=== PATIENT | male | born 1955 | race Caucasian/White ===

== ENCOUNTER 2019-05-31 08:48 | Outpatient (CLI) | payer MEDICARE, SELFPAY ==
[2019-05-31 09:00] LABS: Hemoglobin 15.3 g/dL (14.0-18.0); Mean Corpuscular HGB Conc 33.3 g/dL (32.0-36.0); Mean Corpuscular Hemoglobin 27.8 pg (27.0-31.0); Mean Corpuscular Volume 83.5 fL (78.0-102.0); Mean Platelet Volume 10.2 fl (8.7-11.0); Platelet Count Result 198 K/mm3 (150-420); Red Blood Count 5.51 M/mm3 (4.70-6.10); Red Cell Distribution Width 14.5 % (11.6-14.4); White Blood Count 7.8 K/mm3 (4.8-10.8)
[2019-05-31 09:12] LABS: Hemoglobin A1C 6.2 % (<5.7)
[2019-05-31 10:51] LABS: Alanine Aminotransferase 63 U/L (16-63); Albumin Level 4.2 g/dL (3.4-5.0); Alkaline Phosphatase 53 U/L (46-116); Anion Gap 13.7 mmol/L (7-16); Aspartate Amino Transferase 36 U/L (15-37); Bilirubin,Total 0.5 mg/dL (0.00-1.00); Blood Urea Nitrogen 20 mg/dL (7-18); Calcium 8.9 mg/dL (8.5-10.1); Carbon Dioxide 30 mmol/L (21-32); Chloride 104 mmol/L (98-108); Cholesterol 163 mg/dL (0-200); Estimated Glomerular Filt Rate 47; Glucose 96 mg/dL (70-99); HDL Direct 30 mg/dL (40-60); LDL Cholesterol Calculated 101 mg/dL (<130); Osmolality Calculated 300 mOsm/kg (285-295); Potassium 3.7 mmol/L (3.5-5.1); Sodium 144 mmol/L (136-145); Total Protein 7.8 g/dL (6.4-8.2); Triglycerides 158 mg/dL (0-150)
[2019-05-31 10:52] LABS: Thyroid Stimulating Hormone Reflex 1.17 u/IU/mL (0.36-3.74)
== END 2019-05-31 08:49 | disposition home or self-care (01) ==
LOC: CHSLAB 08:52
PROVIDERS: PCP Family Medicine; Visit Provider Family Medicine
DX: E78.5 Hyperlipidemia, unspecified (principal); R53.83 Other fatigue; I25.10 Atherosclerotic heart disease of native coronary artery without angina pectoris; Z12.5 Encounter for screening for malignant neoplasm of prostate; E11.9 Type 2 diabetes mellitus without complications
CPT/HCPCS: 36415; 80053; 80061; 83036; 84153; 84443; 85027; G0103

== ENCOUNTER 2020-02-12 08:43 | Outpatient (CLI) | payer MEDICARE, MEDICAID, SELFPAY ==
--- NOTE | ~2020-02-12 | XR_ITS ---
EXAMINATION: XR hip RT min 2V EXAM DATE: 02/12/2020 09:04 INDICATION: Right hip pain, no known recent injury. TECHNIQUE: Right hip frontal, crosstable lateral and 'frog-leg' projections for interpretation. Huey rison is made to prior examination from 02/21/2012. FINDINGS: Smooth right hip femoral head contour, no radiographic evidence of avascular necrosis. The re is mild to moderate primary osteoarthritis. There are no acute fractures or dislocations identifie d. There is no subcutaneous gas. The soft tissue is unremarkable. There are no radiopaque foreign bodies. IMPRESSION: Mild to moderate right hip osteoarthritis. Reviewed, dictated and finalized at location B. SMOKING MACHINE OPERATOR
== END 2020-02-12 08:44 | disposition home or self-care (01) ==
PROVIDERS: PCP Family Medicine; Visit Provider Physical Medicine & Rehabilitation Pain Medicine
DX: M16.11 Unilateral primary osteoarthritis, right hip (principal)
CPT/HCPCS: 73502

== ENCOUNTER 2020-02-28 10:34 | Outpatient (CLI) | payer MEDICARE, MEDICAID, SELFPAY ==
--- NOTE | ~2020-02-28 | US_ITS ---
EXAMINATION: US soft tissue head and neck EXAM DATE: 02/28/2020 11:03 INDICATION: R22.1 - Localized swelling, mass and lump, neck . TECHNIQUE: Multiple grayscale and Doppler images of the symptomatic suprasternal region were obtained (by a technologist who performed the scan) and subsequently reviewed. There is no prior study for c omparison. FINDINGS: Images annotated mid inferior neck sternal notch area demonstrate a focal region left of midline bindu g the fascial planes, solid but without internal vascularity confirmed. This measures about 2.5 x 1.0 cm, differential diagnosis including lipoma, lymphadenopathy. Recommend CT neck for further evaluati on. No fluid collection. IMPRESSION: Focal mass in left medial supraclavicular region, probably encapsulated lipoma or lymphad enopathy. Recommend CT neck with or without contrast for further evaluation. Reviewed, dictated and finalized at location A. CT MARKETING SPECIALIST IMPRESSION: Focal mass in left medial supraclavicular region, probably encapsul ated lipoma or lymphadenopathy. Recommend CT neck with or without contrast for further evaluation.
== END 2020-02-28 10:35 | disposition home or self-care (01) ==
PROVIDERS: PCP Family Medicine; Visit Provider Physician Assistant
DX: R22.1 Localized swelling, mass and lump, neck (principal)
CPT/HCPCS: 76536

== ENCOUNTER 2020-03-02 08:17 | Outpatient (CLI) | payer MEDICARE, MEDICAID, SELFPAY ==
--- NOTE | ~2020-03-02 | XR_ITS ---
MODIFIED ESOPHAGRAM HISTORY: Dysphagia TECHNIQUE: Modified barium esophagram was performed by speech pathologist under radiologist fluorosco pic guidance. This was recorded on tape. The exam was reviewed on 03/02/2020 10:13 TILE MOLDER HAND. The DAP fo r this procedure was 2.2 Gycm2. Fluoroscopy time is 2 minutes. FINDINGS: Lateral projection of the cervical spine demonstrates normal alignment. There surgical ch anges of fusion.. There are multiple episodes of trace penetration which clears without evidence for aspiration throughout multiple consistencies.. IMPRESSION: 1: Trace penetration with multiple consistencies without aspiration. 2: Please refer to speech pathologist report for additional detail. Reviewed, dictated and finalized at location A. MOLDER HAND
--- NOTE | 2020-03-02 15:23 | STOPEVAL ---
MODIFIED BARIUM SWALLOW EVALUATION: Thank you for referring Gautam Winston to [facility].? Attending Provider: MD ELIUD Yusuf Outpatient Evaluation/MBS Start: 03/02/20 15:09 Freq: Status: Active Protocol: Document 03/02/20 08:30 BECHERERT (Rec: 03/02/20 15:23 BECHERERT [email or web address]) Therapy Assessment Status Assessment Status Assessment Status Evaluation Outpatient Past Medical History Neurological History Hx Neurological Disorders No Significant History Cardiovascular History Hx Chest Pain Yes Hx Hypertension Yes Respiratory History Hx Sleep Apnea Yes Gastrointestinal History Hx Esophageal Disorders Yes: Nuñez's esophagus Hx Polyps Yes Genitourinary History Hx Genitourinary Disorders No Significant History Musculoskeletal History Hx Arthritis Yes Hx Spinal Surgery Yes: cervical, lumbar Hematological History Hx Hematological Disorders No Significant History Endocrine History Hx Endocrine Disorders No Significant History HEENT History Hx HEENT Disorders No Significant History Integumentary History Hx Skin Disorders No Significant History Reproductive History Hx Reproductive Disorders No Significant History Psychosocial History Hx Psychiatric Disorders No Significant History Pain History Has Past Pain Affected Your Daily Life Yes: back Anesthesia History Hx Post-Op Nausea/Vomiting Yes Other History Hx Implanted Device Yes: Metal in cervical and lumbar spine Evaluation Information Problem Diagnosis dysphagia Onset 6 months to years ago Pain Assessment Timing of Pain Assessment Timing of Pain Assessment Assessment Self Report Self Report Pain Level 0 Pain Score Pain Score 0: Self Report Modified Barium Swallow Evaluation Recent Swallowing History Reports Dysphagia Yes: I choke all the time, every day on really anything Onset of Dysphagia 6 months ago then stated for years History of Dysphagia Yes Other Factors Impacting Dysphagia Head/Neck Surgery Reported Difficult Consistencies Thin Liquids,Solids Intake Method Prior to Swallow Oral Evaluation Diet Prior to Swallow Evaluation Regular, Level 7 Liquid Consistency Prior to Swallow Thin (0) Evaluation Consistency Thin Uncontrolled 2 Method of Presentation Straw Oral Preparatory Symptoms Within Functional Limits Oral Phase Symptoms Within Functional Limits Pharyngeal Phase Symptoms Laryngeal Penetration Severity of Vallecular Residue None - 0% No Residue Severity of Pyriform Sinus Residue None - 0%
== END 2020-03-02 08:18 | disposition home or self-care (01) ==
PROVIDERS: PCP Family Medicine; Visit Provider Internal Medicine Gastroenterology
DX: R13.10 Dysphagia, unspecified (principal)
CPT/HCPCS: 92611

== ENCOUNTER 2020-03-04 09:11 | Outpatient (CLI) | payer MEDICARE, MEDICAID, SELFPAY ==
--- NOTE | ~2020-03-04 | CT_ITS ---
EXAMINATION: CT soft tissue neck w con DATE: 03/04/2020 09:45 INDICATION: Neck mass. TECHNIQUE: Computed tomography (CT) of the neck was performed with 75 mL Omnipaque-350 intravenous co ntrast. Automated exposure control and iterative reconstruction technique were employed. The dose-calli gth product was 510.71 mGy-cm. COMPARISON: Ultrasound 02/28/2020 FINDINGS: There are no pathologically enlarged lymph nodes. There is plaque in the proximal internal carotid arteries with 0% stenosis relative to normal distal artery lumen diameters. There is a lipoma superficial to medial left clavicle measuring 4.1 x 1.1 cm. There are changes of anterior fusion pro cedure from C3 to C7 with healed interbody bone graft. There is an anterior plate with screws from C3 to C5. There is moderate cervical spondylosis. IMPRESSION: 1. Lipoma superficial to medial left clavicle correlating with the ultrasound abnormality. Reviewed, dictated and finalized at location A. AR DRIVER IMPRESSION: 1. Lipoma superficial to medial left clavicle correlating with the ultrasound a bnormality.
[2020-03-04 09:40] LABS: Estimated Glomerular Filt Rate 47
== END 2020-03-04 09:12 | disposition home or self-care (01) ==
PROVIDERS: PCP Family Medicine; Visit Provider Family Medicine
DX: R22.1 Localized swelling, mass and lump, neck (principal)
CPT/HCPCS: 70491; Q9967

== ENCOUNTER 2020-03-07 00:59 | Outpatient (CLI) | payer MEDICARE, MEDICAID, SELFPAY ==
[2020-03-07 18:31] LABS: SARS-CoV-2 RNA PCR Negative
== END 2020-03-07 01:00 | disposition home or self-care (01) ==
LOC: ANHCOVIDDT 00:59
PROVIDERS: PCP Family Medicine; Visit Provider Internal Medicine Gastroenterology
DX: Z01.812 Encounter for preprocedural laboratory examination (principal); Z20.828 Contact with and (suspected) exposure to other viral communicable diseases
CPT/HCPCS: 87635; C9803; U0003

== ENCOUNTER 2020-03-11 02:11 | Day surgery (SDC) | payer MEDICARE, MEDICAID, SELFPAY ==
[2020-03-02 12:44] VITALS: BMI 37.3
[2020-03-11 07:30] VITALS: BP 138/81; PULSE 66; RESP 18; TEMP 36.7; O2SAT 96; BMI 37.5
[2020-03-11] MEDS: LACTATED RINGERS 1,000 ML 150 ML IV CONT (07:43)
--- NOTE | 2020-03-11 08:01 | WPDGICN ---
Assessment and Plan Assessment and plan (1) Dysphagia: Code(s): R13.10 - Dysphagia, unspecified Status: Acute Assessment and Plan: Patient complains of difficulty swallowing. Some features suggest oropharyngeal dysphagia. Perhaps a motility disorder. 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 Plan is for EGD to assess for organic narrowing of the esophagus. Modified barium swallow study will also be arranged. GI Consult Note Consult date/time: 03/11/20 08:01 HPI: Gautam Winston is a 65 year old male Seen in evaluation at the request of Dr. Jenny odom. Patient complains of difficulty swallowing. He states that food will stay in his throat. He will frequently cough after eating. He complains of nasopharyngeal regurgitation sometimes expelling food through his nostrils. He denies any abdominal pain. Previous endoscopies have excluded Nueñz's esophagus. He does have a distant history of an esophageal web at 1 point. Patient reports an ongoing discomfort in his throat that is constantly present. Today he presents for follow-up EGD. a modified barium swallow study will also be performed. 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 Cervical radiculopathy Chronic midline low back pain Chronic renal insufficiency Current mild episode of major depressive disorder without prior episode Diabetes Erectile dysfunction Essential hypertension Obstructive sleep apnea Stress reaction Family History Family History Father Family history of premature coronary heart disease, Onset Age: 58 Hypertension Carcinoma of colon Family history of Alzheimer's disease Mother Diabetes mellitus Family history of chronic obstructive pulmonary disease Hypertension Other Cerebrovascular accident Family history of cardiovascular disease Family history of malignant neoplasm Social History Social History Smoking status: Never smoker Second hand tobacco smoke exposure: No Alcohol intake: never Substance use type: does not use Living arrangements: with family Gender identity (if verbalized by the patient): Male Spiritual care concerns: No Meds Home Medications and Allergies Home Medications Medication Instructions Recorded Confirmed Type aspirin 81 mg tablet,delayed 81 mg PO DAILY 05/19/19 03/11/20 History release nitroglycerin 0.4 mg sublingual 0.4 mg SUBLINGUAL Q5M PRN 05/19/19 03/11/20 History tablet oxycodone-acetaminophen 5 mg-325 1 tablet PO Q6H PRN #30 tablet 05/22/19 03/11/20 Rx mg tablet omeprazole 10 mg capsule,delayed 10 mg PO DAILY #90 cap 10/31/19 03/11/20 Rx release chlorthalidone 50 mg tablet 50 mg PO DAILY #90 tablet 01/20/20 03/11/20 Rx sildenafil 100 mg tablet 100 mg PO DAILY PRN #10 tablet 01/23/20 03/11/20 Rx Allergies Allergy/AdvReac Type Severity Reaction Status Date / Time No Known Allergies Allergy Verified 03/11/20 07:29 Vital Signs Vital Signs - 24 hr 03/11/20 07:30 Temperature 98.0 F Pulse Rate 66 Respiratory Rate 18 Blood Pressure 138/81 Pulse Oximetry 96 Exam Narrative: Exam Narrative: Physical exam reveals patient to be overweight. Vital signs are stable. HEENT exam unremarkable. Lungs are clear to auscultation and percussion. Heart is without murmur or extra sounds. Abdominal exam bowel sounds are present soft nontender with no organomegaly is somewhat obese. digital external rectal exam is normal.
--- NOTE | 2020-03-11 08:31 | P.PNAN_ITS ---
Anes - Initial Pre Proc Eval Procedure: Operation Date: 03/11/20 09:00 Proposed Procedures p Esophagogastroduodenoscopy - Darell Rodriguez MD Date/Time: 03/11/20 08:31 Surgeon: Darell Rodriguez MD Pre Op Diagnosis: Dysphagia,GERD Patient Data Age: 65 Gender: M Height: 6 ft Weight: 125.4 kg Last Vital Signs Temp 98.0 F 03/11/20 07:30 Pulse 66 03/11/20 07:30 Resp 18 03/11/20 07:30 BP 138/81 03/11/20 07:30 Pulse Ox 96 03/11/20 07:30 Allergies Allergy/AdvReac Type Severity Reaction Status Date / Time No Known Allergies Allergy Verified 03/11/20 07:29 Home Medications Medication Instructions Recorded Confirmed Type aspirin 81 mg tablet,delayed 81 mg PO DAILY 05/19/19 03/11/20 History release nitroglycerin 0.4 mg sublingual 0.4 mg SUBLINGUAL Q5M PRN 05/19/19 03/11/20 History tablet oxycodone-acetaminophen 5 mg-325 1 tablet PO Q6H PRN #30 tablet 05/22/19 03/11/20 Rx mg tablet omeprazole 10 mg capsule,delayed 10 mg PO DAILY #90 cap 10/31/19 03/11/20 Rx release chlorthalidone 50 mg tablet 50 mg PO DAILY #90 tablet 01/20/20 03/11/20 Rx sildenafil 100 mg tablet 100 mg PO DAILY PRN #10 tablet 01/23/20 03/11/20 Rx Patient hx anesthesia problems: none Family hx anesthesia problems: none PMFSH Past Medical History Medical History 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 Cervical radiculopathy Chronic midline low back pain Chronic renal insufficiency Current mild episode of major depressive disorder without prior episode Diabetes Erectile dysfunction Essential hypertension Obstructive sleep apnea Stress reaction Family History Family History Father Family history of premature coronary heart disease, Onset Age: 58 Hypertension Carcinoma of colon Family history of Alzheimer's disease Mother Diabetes mellitus Family history of chronic obstructive pulmonary disease Hypertension Other Cerebrovascular accident Family history of cardiovascular disease Family history of malignant neoplasm Social History Social History Smoking status: Never smoker Second hand tobacco smoke exposure: No Alcohol intake: never Substance use type: does not use Living arrangements: with family Gender identity (if verbalized by the patient): Male Spiritual care concerns: No Anes - Eval Final PreProcedure Day of Procedure 03/11/20 08:31 Patient weight: obese Heart: regular rate and rhythm Lungs: clear to auscultation Airway: Mallampati scale class II Neurological: alert and oriented Last oral intake: >/= 8 hours ASA classification: III Emergent: no Anesthetic plan: proceed Anesthesia type and monitoring: general GIVS and standard monitoring Informed Consent: The patient's anesthetic plan and its attendant risks and benefits were discussed with the patient/family/POA. Questions were solicited and answers provided to the satisfaction of the patient/family/POA.
[2020-03-11] MEDS: BENZOCAINE (*SP) 60 ML SPRAY CAN (HURRICAINE) 1 SPRAY MUCOUS MEM (08:33)
[2020-03-11 08:44] VITALS: BP 127/77; PULSE 64; RESP 17; O2SAT 97
[2020-03-11 08:54] VITALS: BP 122/80; PULSE 52; RESP 14; O2SAT 97
[2020-03-11 09:04] VITALS: BP 128/69; PULSE 54; RESP 19; O2SAT 99
== END 2020-03-11 09:14 | disposition home or self-care (01) ==
PROVIDERS: PCP Family Medicine; Visit Provider Internal Medicine Gastroenterology
PROC: 0DJ08ZZ Inspection of Upper Intestinal Tract, Via Natural or Artificial Opening Endoscopic (ICD-10-PCS; CPT 43235; principal; 2020-03-11 09:00)
DX: R13.10 Dysphagia, unspecified (principal); I25.10 Atherosclerotic heart disease of native coronary artery without angina pectoris; I12.9 Hypertensive chronic kidney disease with stage 1 through stage 4 chronic kidney disease, or unspecified chronic kidney disease; N18.9 Chronic kidney disease, unspecified; E11.22 Type 2 diabetes mellitus with diabetic chronic kidney disease; G47.33 Obstructive sleep apnea (adult) (pediatric); N52.9 Male erectile dysfunction, unspecified; F32.0 Major depressive disorder, single episode, mild; Z79.891 Long term (current) use of opiate analgesic; E66.9 Obesity, unspecified; Z68.37 Body mass index [BMI] 37.0-37.9, adult
CPT/HCPCS: 43450; 43235; J2704; J7120

== ENCOUNTER 2020-04-22 08:40 | Outpatient (RCR) | payer MEDICARE, MEDICAID, SELFPAY ==
--- NOTE | 2020-04-23 14:19 | STOPEVAL ---
SPEECH THERAPY INITIAL EVALUATION: Thank you for referring Gautam Winston to [facility].? The patient is scheduled to be seen for therapy?1x/week for 4 weeks. Please review, sign, date and return this plan of care YAMIL. I agree with and certify that the following plan of care is medically necessary. Referring Physician Date Attending Provider: Jenny Reyes MD *ST Outpatient Evaluation Start: 04/22/20 09:04 Freq: Status: Active Protocol: Document 04/22/20 09:00 BECHERERT (Rec: 04/22/20 16:52 BECHERERT [email or web address]) Therapy Assessment Status Assessment Status Assessment Status Evaluation Outpatient Past Medical History Past Medical History Source of Past Medical History Patient Neurological History Hx Neurological Disorders No Significant History Cardiovascular History Hx Chest Pain Yes Hx Hypertension Yes Respiratory History Hx Sleep Apnea Yes Gastrointestinal History Hx Polyps Yes Genitourinary History Hx Genitourinary Disorders No Significant History Musculoskeletal History Hx Arthritis Yes Hx Spinal Surgery Yes: cervical, lumbar Hematological History Hx Hematological Disorders No Significant History Endocrine History Hx Endocrine Disorders No Significant History HEENT History Hx HEENT Disorders No Significant History Integumentary History Hx Skin Disorders No Significant History Reproductive History Hx Reproductive Disorders No Significant History Psychosocial History Hx Psychiatric Disorders No Significant History Pain History Has Past Pain Affected Your Daily Life Yes: back Anesthesia History Hx Post-Op Nausea/Vomiting Yes Other History Hx Implanted Device Yes: Metal in cervical and lumbar spine Evaluation Information Problem Diagnosis DYSPHAGIA Subjective Information pleasant and very cooperative; Query Text:As Reported By Patient/ Family Diagnostic Tests Other Tests For This Problem Yes: CT and US of neck/throat Prior Level of Function Home Setting Home Type House Prior Swallow Level Prior Intake Method Oral Prior Diet Regular (Level 7 Diet) Prior Liquid Consistency Thin (Level 0 Diet) Prior Cognition/Communication Prior Communication Level No Impairment Prior Cognitive Function Able to Function Independently Pain Assessment Timing of Pain Assessment Timing of Pain Assessment Assessment Self Report Self Report Pain Level 0 Pain Score Pain Score 0: Self Report Bedside Swallow Evaluation General Reports Dysphagia Yes: I choke 3-4 times a day Onset of Dysphagia
--- NOTE | 2020-05-20 08:53 | PCSTNOTE ---
SPEECH THERAPY DISCHARGE: Attending Provider: Jenny Reyes MD Patient:Gautam Winston Date of :1955 Patient has not returned for any further treatments since 04/22/2020, therefore he will be discharged at this time. Patient?s initial visit was on 04/22/2020 09:00 which was his only visit. In that visit the pt was given a HEP with which he verbalized and demonstrated understanding. Thank you for referring this patient to [facility]. Please review, sign, date and return this discharge summary YAMIL. I have been updated about the patient's current status and I agree with discharge from the above service at this time. Referring Physician Date
== END 2020-05-20 11:14 | disposition home or self-care (01) ==
LOC: ANHST 08:40
PROVIDERS: PCP Family Medicine; Visit Provider Family Medicine
DX: R13.12 Dysphagia, oropharyngeal phase (principal)
CPT/HCPCS: 92610

== ENCOUNTER 2021-01-07 10:36 | Emergency (ER) | payer MEDICARE, MEDICAID, SELFPAY ==
--- NOTE | ~2021-01-07 | XR_ITS ---
EXAMINATION: XR chest 1V portable EXAM DATE: 01/07/2021 11:52 INDICATION: Midsternal chest pain. TECHNIQUE: Portable AP frontal chest x-ray was obtained. Comparison is made to prior examination from 05/24/2018. FINDINGS: The lungs are clear. There are no pleural effusions. Cardiomediastinal silhouette is norm al. There is no pneumothorax suspected. Cervical fusion hardware. There is no significant interval change. IMPRESSION: No acute cardiopulmonary findings. Reviewed, dictated and finalized at location A.
--- NOTE | 2021-01-07 10:58 | ECG_ITS ---
Measurements Intervals [place] Rate: 91 P: 64 OR: 174 QRS: 268 QRSD: 148 T: 63 QT: 405 QTc: 499 Interpretive Statements SINUS RHYTHM RIGHT AXIS DEVIATION RIGHT BUNDLE BRANCH BLOCK ABNORMAL ECG Electronically Signed On 01-07-2021 11:18:34 CDT by Tom Workman D.O.
[2021-01-07 11:07] VITALS: BP 136/85; PULSE 93; RESP 16; TEMP 37.3; O2SAT 100
[2021-01-07 11:11] LABS: Basophils Absolute Auto 0.04 K/mm3 (0.00-0.10); Basophils Percent Auto 0.3 % (0.0-1.0); Eosinophils Absolute Auto 0.05 K/mm3 (0.02-0.50); Eosinophils Percent Auto 0.3 % (1.0-6.0); Hematocrit 44.1 % (40.0-54.0); Hemoglobin 14.9 g/dL (14.0-18.0); Immature Granulocyte Absolute 0.08 K/mm3 (0.00-0.00); Immature Granulocyte Percent A 0.6 % (0.0-0.0); Lymphocytes Absolute Auto 1.64 K/mm3 (1.10-4.50); Lymphocytes Percent Auto 11.3 % (18.0-42.0); Mean Corpuscular HGB Conc 33.8 g/dL (32.0-36.0); Mean Corpuscular Volume 82.9 fL (78.0-102.0); Mean Platelet Volume 9.5 fl (8.7-11.0); Monocytes Percent Auto 6.9 % (2.0-11.0); Neutrophils Absolute Auto 11.7 K/mm3 (1.7-7.2); Neutrophils Percent Auto 80.6 % (50.0-70.0); Platelet Count Result 232 K/mm3 (150-420); Red Blood Count 5.32 M/mm3 (4.70-6.10); Red Cell Distribution Width 14.5 % (11.6-14.4); White Blood Count 14.5 K/mm3 (4.8-10.8)
[2021-01-07] MEDS: ASPIRIN 81 MG CHEWABLE TABLET 324 MG PO (11:20)
[2021-01-07] MEDS: NITROGLYCERIN SL 0.4 MG TABLET SUBLINGUAL (11:24)
[2021-01-07 11:28] LABS: D Dimer 0.29 mg/L (0.19-0.50); Partial Thromboplastin Time 30.8 SEC (23.90-30.70); Prothrombin Time 10.9 Seconds (9.50-12.10)
[2021-01-07 11:32] LABS: Alanine Aminotransferase 41 U/L (16-63); Albumin Level 3.9 g/dL (3.4-5.0); Alkaline Phosphatase 71 U/L (46-116); Anion Gap 10 mmol/L (8-16); Aspartate Amino Transferase 21 U/L (15-37); Bilirubin,Total 0.6 mg/dL (0.00-1.00); Blood Urea Nitrogen 22 mg/dL (7-18); Carbon Dioxide 29 mmol/L (21-32); Chloride 100 mmol/L (98-108); Estimated CRCL calculation 62 ml/min; Estimated Glomerular Filt Rate 52; Glucose 95 mg/dL (70-99); Lipase 112 U/L (73-393); NT Pro B Type Natriuretic Pept 16 pg/mL (0-125); Osmolality Calculated 291 mOsm/kg (285-295); Potassium 2.6 mmol/L (3.5-5.1); Sodium 139 mmol/L (136-145); Total Protein 7.6 g/dL (6.4-8.2); Troponin I 8.2 ng/L (0.00-60.4)
[2021-01-07] MEDS: KCL 20 MEQ/SW 100 ML 100 ML 50 MEQ IVPB (11:53)
[2021-01-07] MEDS: SODIUM CHLORIDE 0.9% IV 1,000 ML 999 ML IV CONT (11:54)
[2021-01-07] MEDS: POTASSIUM CHLORIDE 20 MEQ TABLET 40 MEQ PO (12:28)
[2021-01-07] MEDS: SODIUM CHLORIDE 0.9% IV 500 ML 250 ML (13:16)
[2021-01-07 13:58] VITALS: BP 112/77; PULSE 94; RESP 17; O2SAT 93
[2021-01-07 14:36] LABS: Potassium 3.1 mmol/L (3.5-5.1)
--- NOTE | 2021-01-07 14:57 | ED.CHESTPAIN ---
HPI - Chest Pain General Chief Complaint: Chest Pain Stated Complaint: chest pain Source: patient Mode of arrival: ambulatory Limitations: no limitations History of Present Illness HPI narrative: this is a 66-year-old gentleman presents with some chest discomfort reproducible with some cervical neck arthritis with some numbness and tingling radiating down his left arm with no shortness of breath no nausea vomiting no diaphoresis does have a family history of heart disease had a negative stress test performed in 2018, patient has a history of hyperlipidemia hypertension, nonsmoker no personal history of coronary artery disease. MD complaint: chest pain Onset (ago): week(s) Prior episodes: Yes Onset: during rest Related Data Home Medications Medication Instructions Recorded Confirmed aspirin 81 mg tablet,delayed 81 mg PO DAILY 05/19/19 01/07/21 release hnoucrsz-zal-zfadk acid 300 1 tablet PO DAILY 06/25/20 01/07/21 mcg-lycopene 600 mcg-lutein 300 mcg tablet omega 8-oyp-eme-fish oil 100 cap PO 06/25/20 11/19/20 mg-160 mg-1,000 mg capsule chlorthalidone 50 mg tablet 25 mg PO DAILY tablet 09/25/20 01/07/21 sennosides-docusate sodium [Senna 1 tab-cap PO HS 01/07/21 01/07/21 with Docusate Sodium] Allergies Allergy/AdvReac Type Severity Reaction Status Date / Time No Known Allergies Allergy Verified 12/03/20 10:28 Review of Systems Review of Systems: All systems reviewed & are unremarkable except as noted in HPI and below PMFSH Past Medical History Medical History 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 Cervical radiculopathy Chronic midline low back pain Chronic renal insufficiency Current mild episode of major depressive disorder without prior episode Diabetes Erectile dysfunction Essential hypertension Gout Obstructive sleep apnea Stress reaction Family History Family History Father Family history of premature coronary heart disease, Onset Age: 58 Hypertension Carcinoma of colon Family history of Alzheimer's disease Mother Diabetes mellitus Family history of chronic obstructive pulmonary disease Hypertension Other Cerebrovascular accident Family history of cardiovascular disease Family history of malignant neoplasm Social History Social History Second hand tobacco smoke exposure: No Alcohol intake: never Substance use type: does not use Gender identity (if verbalized by the patient): Male Spiritual care concerns: No Exam Const: General: cooperative, healthy appearing, comfortable and no acute distress HENMT: Head: normal to inspection Ears: hearing grossly normal bilaterally General nose exam: Normal external nose present Mouth: Yes Normal oral and palatal mucosa present and Yes lip normal Eyes: General: appearance normal, both eyes and all related structures EOM: EOMs intact bilaterally Neck: Neck: normal visual inspection, full ROM, no lymphadenopathy and no meningeal signs Resp: Effort & Inspection: able to speak in complete sentences Auscultation: clear to auscultation bilaterally Cardio: Palpation: normal PMI Rate: regular rate Rhythm: regular rhythm Back/Spine/Pelvis: Back: no CVA tenderness Skin: General skin exam: normal color and no rashes or lesions noted Neuro: General: oriented to person, oriented to place and oriented to time Extrem: General: normal to inspection and full ROM Course Course Emergency Course: Labs EKG and x-rays were reviewed with patient did show that he had low potassium potassium rider was given and oral dose of potassium current potassium level 3.1 patient is on chlorthalidone which is contributing to his hypokalemia advised to continue potassium mabry
[2021-01-07 15:51] VITALS: BP 136/63; PULSE 111; RESP 21; O2SAT 97
== END 2021-01-07 15:53 | disposition home or self-care (01) ==
PROVIDERS: Emergency Provider Emergency Medicine; PCP Family Medicine
DX: R07.89 Other chest pain (principal); E87.6 Hypokalemia; I12.9 Hypertensive chronic kidney disease with stage 1 through stage 4 chronic kidney disease, or unspecified chronic kidney disease; N18.9 Chronic kidney disease, unspecified; E11.22 Type 2 diabetes mellitus with diabetic chronic kidney disease; I25.10 Atherosclerotic heart disease of native coronary artery without angina pectoris; K22.70 Barrett's esophagus without dysplasia; E78.5 Hyperlipidemia, unspecified; M54.12 Radiculopathy, cervical region; M54.5 Low back pain; F32.9 Major depressive disorder, single episode, unspecified; E11.9 Type 2 diabetes mellitus without complications; M10.9 Gout, unspecified; G47.33 Obstructive sleep apnea (adult) (pediatric)
CPT/HCPCS: 36415; 71045; 80053; 83690; 83880; 84132; 84484; 85025; 85380; 85610; 85730; 93005; 96361; 96365; 99283; 99284; A9270; J3480; J7030; J7040

== ENCOUNTER 2021-01-08 09:58 | Observation (INO) | payer MEDICARE, MEDICAID, SELFPAY ==
[2021-01-08] VITALS (12 sets, daily range): BP systolic 96–121; BP diastolic 53–66; PULSE 79–97; RESP 14–27; TEMP 36.5–37.7; O2SAT 97–100; BMI 33.7
--- NOTE | ~2021-01-08 | CT_ITS ---
EXAMINATION: CT abdomen pelvis wo con DATE: 01/08/2021 13:06 INDICATION: Flank pain with fever leukocytosis and dysuria. TECHNIQUE: Computed tomography (CT) of the abdomen and pelvis was performed without intravenous contr ast. Automated exposure control and iterative reconstruction technique were employed. The dose-length product was 985.46 mGy-cm. COMPARISON: 06/20/2017 FINDINGS: Lung bases are clear. Heart size is normal. Atherosclerotic coronary artery calcific location. No per icardial or pleural effusion. Small sliding-type hiatal hernia. Diffuse hepatic steatosis. Gallbladde r, spleen, pancreas and bilateral adrenal glands are normal. There is mild colonic diverticulosis wit h a sigmoid predominance. There is no adjacent inflammatory change to suggest diverticulitis. Kidney s and ureters are normal with no urolithiasis, hydroureteronephrosis or perinephric/ureteral strandin g. Prostatomegaly measuring 6.3 x 5.2 cm. There is mild haziness to the fat along the base of the farida dder, prostate and seminal vesicles raising suspicion for prostatitis and/or cystitis. No free intrap eritoneal gas or fluid. No pathologically enlarged abdominal or pelvic lymphadenopathy. Severe lumbar spondylosis. Combined instrumented anterior and posterior spinal fusion at L3-L4 with interbody bone graft cage and bilateral vertical lex and pedicle screw fixation. Additional posterior spinal fusion with fusion across the bilateral facet joints at L5-S1. IMPRESSION: 1. Inflammatory haziness to the fat at the base of the bladder surrounding prostate and seminal vesic les suspicious for prostatitis and/or cystitis. 2. Normal kidneys and ureters with no urolithiasis or hydronephrosis. 3. Diffuse hepatic steatosis. 4. Mild diverticulosis. 5. Small sliding-type hiatal hernia. Reviewed, dictated and finalized at location A. IMPRESSION: 1. Inflammatory haziness to the fat at the base of the bladder surrounding pros rojas and seminal vesicles suspicious for prostatitis and/or cystitis. 2. Normal kidneys and ureters with no urolithiasis or hydronephrosis. 3. Diffuse hepatic steatosis. 4. Mild diverticulosis. 5. Small sliding-type hiatal hernia.
--- NOTE | 2021-01-08 11:39 | ED.FEVER ---
HPI - Fever General Chief Complaint: Fever Stated Complaint: fever, nausea, incotinence Time Seen by Provider: 01/08/21 11:21 Source: patient Mode of arrival: ambulatory Limitations: no limitations History of Present Illness HPI Narrative: This is a 66 year old male that presents to the ER for fevers noted since yesterday. Associated with pressure with urination and left flank pain. Also reports an episode of nausea and vomiting this morning. Reports he was seen in the ED yesterday and diagnosed with hypokalemia. They did a chest XR which was normal and other labs looked okay. Reports they did not check a urine. Although looking through the chart it looks like yesterday his complaint was chest pain. He is no longer experiencing any chest pain. Reports he was just released from his quarantine for Covid infection two days ago. Denies shortness of breath, sore throat, cough, congestion. Related Data Home Medications Medication Instructions Recorded Confirmed aspirin 81 mg tablet,delayed 81 mg PO DAILY 05/19/19 01/07/21 release lxdwjrtd-lko-sfwpb acid 300 1 tablet PO DAILY 06/25/20 01/07/21 mcg-lycopene 600 mcg-lutein 300 mcg tablet omega 8-fxh-dec-fish oil 100 1 cap PO DAILY 06/25/20 01/08/21 mg-160 mg-1,000 mg capsule chlorthalidone 50 mg tablet 25 mg PO DAILY tablet 09/25/20 01/07/21 sennosides-docusate sodium [Senna 1 tab-cap PO HS 01/07/21 01/07/21 with Docusate Sodium] Allergies Allergy/AdvReac Type Severity Reaction Status Date / Time No Known Allergies Allergy Verified 01/08/21 10:18 Review of Systems Review of Systems: CONSTITUTIONAL: Reports fever ENT: Denies rhinorrhea, congestion, sore throat CARDIOVASCULAR: Denies chest pain, or edema. RESPIRATORY: Denies cough or dyspnea. GASTROINTESTINAL: Reports abdominal pain, nausea, vomiting GENITOURINARY: Reports dysuria. Denies hematuria. 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 Cervical radiculopathy Chronic midline low back pain Chronic renal insufficiency Current mild episode of major depressive disorder without prior episode Diabetes Erectile dysfunction Essential hypertension Gout Obstructive sleep apnea Stress reaction Family History Family History Father Family history of premature coronary heart disease, Onset Age: 58 Hypertension Carcinoma of colon Family history of Alzheimer's disease Mother Diabetes mellitus Family history of chronic obstructive pulmonary disease Hypertension Other Cerebrovascular accident Family history of cardiovascular disease Family history of malignant neoplasm Social History Social History Second hand tobacco smoke exposure: No Alcohol intake: never Substance use type: does not use Gender identity (if verbalized by the patient): Male Spiritual care concerns: No Exam Narrative: GENERAL: Well-appearing, well-nourished, and in no acute distress. HEAD: Normocephalic, atraumatic. EYES: EOMI. ENT: Mucous membranes dry. Oropharynx without tonsillar hypertrophy exudate or other lesions. NECK: Supple. No adenopathy or masses. CHEST: Clear to auscultation. No respiratory distress. No wheezes rales or rhonchi HEART: Regular rate and rhythm. No murmur heard. Normal peripheral pulses. ABDOMEN: Soft, nontender, nondistended, normal active bowel sounds. No CVA tenderness EXTREMITIES: Normal range of motion. No edema. SKIN: Warm, dry, no rash. NEURO: No focal deficits. Alert and oriented x3. PSYCH: Normal mood and affect Course Consultations Consultation #1: Spoke with hospitalist about patient and work-up who accepts a
[2021-01-08] MEDS: SODIUM CHLORIDE 0.9% IV 1,000 ML 999 ML IV CONT ×3 (12:06→15:06)
[2021-01-08 12:23] LABS: Hematocrit 42.2 % (42.0-52.0); Hemoglobin 14.2 g/dL (14.0-18.0); Mean Corpuscular HGB Conc 33.6 g/dl (32-36); Mean Corpuscular Hemoglobin 28.7 pg (26-34); Mean Corpuscular Volume 85.3 fl (80-100); Mean Platelet Volume 10.1 fl (7.4-10.4); Platelet Count Result 164 k/mm3 (150-375); Red Blood Count 4.95 M/mm3 (4.6-6.20); Red Cell Distribution Width 15.3 % (11.5-14.5); White Blood Count 23.5 K/mm3 (4.5-10.0)
[2021-01-08 12:40] LABS: Add Urine Microscopic? YES; Appearance Urine Cloudy (Clear); Bacteria Urine Trace /hpf; Bilirubin Urine Negative (Negative); Blood Urine 1+ (Negative); Color Urine Amber (Yellow); Glucose Urine UA Negative (Negative); Hyaline Casts Urine 50+ /lpf; Ketones Urine Negative (Negative); Leukocyte Esterase Ur 3+ LEU/UL (Negative); Mucus Urine Rare /lpf; Nitrate Urine Negative (Negative); Protein Urine 2+ mg/dL (Negative); RBC Urine 21-50 /hpf (0-2); Squamous Epithelial Cell Urine Few /hpf (Few); WBC Urine >75 /hpf
[2021-01-08 12:55] LABS: Alanine Aminotransferase 25 U/L (4-50); Albumin Level 4.2 g/dL (3.5-5.1); Alkaline Phosphatase 68 U/L (38-126); Anion Gap 15 mmol/L (8-16); Aspartate Amino Transferase 29 U/L (17-59); Bilirubin,Total 1.1 mg/dL (0.2-1.3); Blood Urea Nitrogen 26 mg/dL (9-20); Calcium 8.6 mg/dL (8.4-10.2); Carbon Dioxide 23 mmol/L (22-30); Chloride 99 mmol/L (98-107); Estimated CRCL calculation 51 ml/min; Estimated Glomerular Filt Rate 41; Glucose 154 mg/dL (65-110); Lipase 44 U/L (23-300); Potassium 2.8 mmol/L (3.4-5.0); Sodium 137 mmol/L (137-145)
[2021-01-08 13:04] LABS: Specific Grav Ur 1.033 (1.001-1.035)
[2021-01-08 13:13] LABS: Band Neutrophils Percent 9 % (0-6); Monocytes Absolute Manual 0.47 K/mm3 (0.1-0.90); Monocytes Percent Manual 2 % (3-9); Neutrophils Absolute Manual 22.32 K/mm3 (1.3-6.7); Neutrophils Percent Manual 86 % (46-73); Total Cells Counted 100
[2021-01-08 13:14] LABS: Platelet Estimate Adequate (Adequate)
[2021-01-08 13:50] LABS: CRP 31.5 mg/dL (<1.0)
[2021-01-08 15:15] LABS: Reflex Lactic Acid Yes or No Add Lactic
--- NOTE | 2021-01-08 17:15 | PM.IMHP ---
H&P: HPI History of Present Illness Date/Time: 01/08/21 17:15 Chief Complaint: Fever, urinary incontinence. Narrative: This is a very pleasant 66-year-old male with hypertension, sleep apnea, and borderline diabetes who presented to the emergency department earlier today from home for evaluation of fever and urinary incontinence. He reports gradual onset of generalized malaise yesterday to the point of body aches and fever up to 101? F as well as urinary urgency, incontinence, dysuria, pelvic pressure, and left-sided flank discomfort. In fact he was seen at an outside emergency department yesterday for evaluation though he was mainly complaining of chest discomfort at which time his workup was reportedly unremarkable. Urinalysis is consistent with urinary tract infection and a CT of the abdomen and pelvis showed inflammation about the base of the bladder and surrounding prostate and seminal vesicles suspicious for prostatitis and/or cystitis. He has no prior history of UTI or prostatitis. No concerns for sexually transmitted infections. He denies vomiting and diarrhea. Review of Systems Review of Systems: Twelve systems were reviewed with pertinent positives and negatives as per HPI. Patient had COVID within the last several weeks and was released from quarantine 2 days ago. He denies cough and shortness of breath. Patient has lost over 100 lb in the last 1 year. He reports compliance with his CPAP while sleeping. Except as documented, all other systems were reviewed and are negative. [facility] Past Medical History Medical History (Updated 01/08/21 @ 20:30 by Cassie Jett PA-C) Atherosclerotic heart disease of [place] coronary artery without angina pectoris Cardiac catheterization in May 2011 showed essentially normal coronary arteries with very minor intimal irregularities in the left anterior descending artery. Nuñez's esophagus determined by biopsy Cervical radiculopathy Chronic kidney disease, stage 3 Average GFR is in the upper 40s to low 50s. Baseline creatinine ranges between 1.2 and 1.50. Chronic midline low back pain Current mild episode of major depressive disorder without prior episode Erectile dysfunction Essential hypertension Gout Kidney stones Obstructive sleep apnea Pre-diabetes Hemoglobin A1c was 5.8% on 08/13/2020. Surgical History Surgical History (Updated 01/08/21 @ 20:26 by Cassie Jett PA-C) History of cardiac catheterization (05/20/11) Essentially normal coronary arteries with buried minor intimal irregularities in the LAD. History of cervical spinal surgery History of esophagogastroduodenoscopy History of lumbar surgery Family History Family History Father Family history of premature coronary heart disease, Onset Age: 58 Hypertension Carcinoma of colon Family history of Alzheimer's disease Mother Diabetes mellitus Family history of chronic obstructive pulmonary disease Hypertension Other Cerebrovascular accident Family history of cardiovascular disease Family history of malignant neoplasm Social History Social History (Updated 01/08/21 @ 20:27 by Cassie Jett PA-C) Social History: Surrogate decision maker: Moni Winston, . Code status: Full code. Smoking status: Never smoker Second hand tobacco smoke exposure: No Alcohol intake: never Substance use: never Substance use type: does not use Additional living arrangements comments: Lives in [place] with his . 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 Spiritual care concerns: No Meds Home Medications and Allergies Home Medications Medication Instructions Recorded Confirmed Type aspirin 81 mg tablet,delayed 81 mg PO DAILY 05/19/19 01/08/21 History release rfghshgq-iob-oylka acid 300 1 tablet PO DAILY 06/25/20 01/08/21 History mcg-lycopene 600 mcg-lutein 300 mcg tablet
[2021-01-08 18:53] LABS: Lactic Acid 1.7 mmol/L (0.7-2.1)
[2021-01-08 21:54] LABS: Anion Gap 9 mmol/L (8-16); Blood Urea Nitrogen 20 mg/dL (9-20); Calcium 7.8 mg/dL (8.4-10.2); Carbon Dioxide 23 mmol/L (22-30); Chloride 102 mmol/L (98-107); Estimated CRCL calculation 78 ml/min; Estimated Glomerular Filt Rate > 60; Glucose 148 mg/dL (65-110); Magnesium 1.6 mg/dL (1.6-2.3); Potassium 2.9 mmol/L (3.4-5.0); Sodium 134 mmol/L (137-145)
[2021-01-08] MEDS: diphenhydrAMINE HCl CAP 25 MG CAPSULE 50 MG PO (23:58)
[2021-01-08] MEDS: POTASSIUM CHLORIDE 20 MEQ TABLET 40 MEQ PO (23:58)
[2021-01-09] VITALS (10 sets, daily range): BP systolic 91–122; BP diastolic 54–71; PULSE 78–94; RESP 16–20; TEMP 36.7–36.9; O2SAT 98–100
[2021-01-09 05:34] LABS: Anion Gap 11 mmol/L (8-16); Blood Urea Nitrogen 16 mg/dL (9-20); Calcium 8.1 mg/dL (8.4-10.2); Carbon Dioxide 24 mmol/L (22-30); Chloride 102 mmol/L (98-107); Estimated CRCL calculation 78 ml/min; Estimated Glomerular Filt Rate > 60; Glucose 110 mg/dL (65-110); Magnesium 1.7 mg/dL (1.6-2.3); Potassium 2.7 mmol/L (3.4-5.0); Sodium 137 mmol/L (137-145)
[2021-01-09 05:38] LABS: Basophils Percent Auto 0.2 % (0.2-1.2); Eosinophils Absolute Auto 0.1 K/mm3 (0-0.3); Eosinophils Percent Auto 0.7 % (0-4.4); Hematocrit 39.4 % (42.0-52.0); Hemoglobin 13.4 g/dL (14.0-18.0); Immature Granulocyte Absolute 0.18 K/mm3 (0.00-0.031); Immature Granulocyte Percent A 1.1 % (0-0.5); Immature Platelet Fraction Pct 4.1 % (0.9-11.2); Lymphocytes Absolute Auto 1.18 K/mm3 (0.9-3.2); Lymphocytes Percent Auto 7.2 % (18.3-44.2); Mean Corpuscular Hemoglobin 28.6 pg (26-34); Mean Platelet Volume 9.9 fl (7.4-10.4); Monocytes Absolute Auto 0.8 K/mm3 (0.1-0.6); Monocytes Percent Auto 4.6 % (2.6-8.5); Neutrophils Absolute Auto 14.2 K/mm3 (1.3-6.7); Neutrophils Percent Auto 86.2 % (45.5-73.1); Platelet Count Result 138 k/mm3 (150-375); Red Blood Count 4.69 M/mm3 (4.6-6.20); Red Cell Distribution Width 15.4 % (11.5-14.5); White Blood Count 16.4 K/mm3 (4.5-10.0)
[2021-01-09] MEDS: MAGNESIUM SULF 2 GM/WATER 50ML 2 GM/50 ML BAG IVPB (06:24)
--- NOTE | 2021-01-09 09:48 | PM.IMPN ---
Progress Note: A&P Assessment and Plan (1) Sepsis: Qualifiers: Sepsis acute organ dysfunction status: without acute organ dysfunction Sepsis type: sepsis due to unspecified organism Qualified Code(s): A41.9 - Sepsis, unspecified organism Code(s): A41.9 - Sepsis, unspecified organism Status: Acute Assessment and Plan: The patient is a 66 year old man with a history of gout, hypokalemia, GERD, who presented to the ER with fevers and urinary incontinence for the last 24 hours. The patient's initial vitals showed low-grade fever of 99.2?, heart rate 93 beats per minute, blood pressure low normal at 102/61, and normal oxygenation on room air. Leukocytosis at 23,000, with a left shift, hypokalemia at 2.8, HOMERO with creatinine 1.7, BUN 26, elevated lactic acid 3.0, improved with IV fluids to 1.7. Normal LFTs. CRP elevated at 31.5. Urinalysis suspicious for cloudy urine with 3+ leukocyte esterase, WBCs greater than 75, hyaline casts greater than 50. He ws admitted into the hospital meeting criteria for sepsis with UTI. Continue IV abx and IV fluids. Sepsis present on admission and supported by fever, leukocytosis with left shift, and lactic acidosis in the setting of acute prostatitis. He was hydrated and repeat lactic acid level was within normal limits. Blood pressures are stable. Blood and urine cultures pending. Continue monitoring. (2) Acute prostatitis: Code(s): N41.0 - Acute prostatitis Status: Acute Assessment and Plan: Patient has been started on Levaquin. He has been reporting urinary symptoms for a while. Will check a postvoid residual to make sure he is not having urinary retention CT scan showed enlarged prostate so started him on Flomax daily Consider urology consultation if he is retaining high quantities or having other urinary issues (3) Acute on chronic renal failure: Code(s): N17.9 - Acute kidney failure, unspecified; N18.9 - Chronic kidney disease, unspecified Status: Acute Assessment and Plan: Secondary to dehydration and insensible losses though cannot rule out component of ATN from sepsis. He was adequately hydrated in the emergency department and we will encourage oral intake. Avoid nephrotoxic agents. (4) Hypokalemia: Code(s): E87.6 - Hypokalemia Status: Acute Assessment and Plan: Potassium was 2.7 this morning. Replenished with PO Potassium and Magnesium. Hold chlorthalidone. (5) Dehydration: Code(s): E86.0 - Dehydration Status: Acute Assessment and Plan: He has been appropriately hydrated as detailed above. Encourage oral intake. (6) Obstructive sleep apnea: Code(s): G47.33 - Obstructive sleep apnea (adult) (pediatric) Status: Acute Assessment and Plan: CPAP will be provided for the patient to use while hospitalized. (7) Pre-diabetes: Code(s): R73.03 - Prediabetes Status: Acute Assessment and Plan: Hemoglobin A1c was 5.8% in August 2020. Time Spent With Patient Time with patient: 25 - 35 minutes Subjective Date/time seen: 01/09/21 09:48 Interval history: Date of Service 01/09/21: Review of Systems Review of Systems: All systems reviewed & are unremarkable except as noted in HPI and below Exam Narrative: General: 66-year-old man laying flat in bed. Appears comfortable. In no acute distress. Skin: No jaundice or cyanosis. Good skin turgor. Neck: Full range of motion. Supple. Nontender. Respiratory: Lungs are clear to auscultation bilaterally. No bony chest wall tenderness. Cardiovascular: The heart has a regular rate and rhythm without murmur. No carotid bruits. Lower extremities: No lower extremity edema. Distal pulses are easily palpated. No calf tenderness to palpation. Gastrointestinal: The abdomen is soft, nontender and nondistended with active bowel sounds. Psychiatric: Lucid and oriented. Memory intact
[2021-01-09] MEDS: PANTOPRAZOLE 40 MG TABLET PO (09:54)
[2021-01-09] MEDS: OMEGA 3 POLYUNSAT FATTY ACIDS 1 GM CAP PO (09:54)
[2021-01-09] MEDS: SENNA/DOCUSATE SODIUM TABLET 1 TAB PO ×2 (09:54→17:01)
[2021-01-09] MEDS: ASPIRIN 81 MG ENTERIC TABLET PO (09:54)
[2021-01-09] MEDS: OPTI-GEN TAB 1 TABLET PO (09:54)
[2021-01-09] MEDS: POTASSIUM CHLORIDE 20 MEQ TABLET PO (09:55)
[2021-01-09] MEDS: POTASSIUM CHLORIDE 20 MEQ TABLET 40 MEQ PO ×2 (09:55→18:06)
[2021-01-09] MEDS: POTASSIUM CHLORIDE 20 MEQ TABLET.ER PO ×3 (09:55→17:01)
--- NOTE | 2021-01-09 10:09 | PC.NURSE ---
could not give 0900 flomax. waiting on pharmacy to send. pharmacy notified
[2021-01-09] MEDS: TAMSULOSIN HCL 0.4 MG CAPSULE PO (11:38)
[2021-01-09] MEDS: MAGNESIUM SULFATE 3GM/D5W100ML 3 GM/100 ML BAG IVPB (13:08)
--- NOTE | 2021-01-09 13:14 | PC.NURSE ---
unable to give 1300 potassium on time, unable to pull from [facility], waiting for pharmacy to send, pharmacy notified
[2021-01-09 15:21] LABS: Magnesium 2.9 mg/dL (1.6-2.3); Potassium 3.2 mmol/L (3.4-5.0)
[2021-01-09] MEDS: ACETAMINOPHEN 325 MG TABLET 650 MG PO ×2 (21:06)
[2021-01-09] MEDS: diphenhydrAMINE HCl CAP 25 MG CAPSULE 50 MG PO (21:07)
[2021-01-10] VITALS: PULSE 72
[2021-01-10 04:00] VITALS: PULSE 80
[2021-01-10 05:11] LABS: Basophils Absolute Auto 0.1 K/mm3 (0.0-0.1); Basophils Percent Auto 0.4 % (0.2-1.2); Eosinophils Absolute Auto 0.4 K/mm3 (0-0.3); Eosinophils Percent Auto 2.7 % (0-4.4); Hematocrit 37.5 % (42.0-52.0); Hemoglobin 12.9 g/dL (14.0-18.0); Immature Granulocyte Absolute 0.07 K/mm3 (0.00-0.031); Immature Granulocyte Percent A 0.5 % (0-0.5); Lymphocytes Absolute Auto 2.28 K/mm3 (0.9-3.2); Lymphocytes Percent Auto 17.4 % (18.3-44.2); Mean Corpuscular HGB Conc 34.4 g/dl (32-36); Mean Corpuscular Hemoglobin 28.3 pg (26-34); Mean Corpuscular Volume 82.2 fl (80-100); Mean Platelet Volume 10.3 fl (7.4-10.4); Monocytes Absolute Auto 1.1 K/mm3 (0.1-0.6); Monocytes Percent Auto 8.5 % (2.6-8.5); Neutrophils Absolute Auto 9.3 K/mm3 (1.3-6.7); Neutrophils Percent Auto 70.5 % (45.5-73.1); Platelet Count Result 151 k/mm3 (150-375); Red Blood Count 4.56 M/mm3 (4.6-6.20); Red Cell Distribution Width 15.5 % (11.5-14.5); White Blood Count 13.1 K/mm3 (4.5-10.0)
[2021-01-10 05:33] LABS: Anion Gap 7 mmol/L (8-16); Blood Urea Nitrogen 16 mg/dL (9-20); Calcium 8.4 mg/dL (8.4-10.2); Carbon Dioxide 28 mmol/L (22-30); Chloride 104 mmol/L (98-107); Estimated CRCL calculation 78 ml/min; Estimated Glomerular Filt Rate > 60; Glucose 132 mg/dL (65-110); Magnesium 2.3 mg/dL (1.6-2.3); Potassium 3.1 mmol/L (3.4-5.0); Sodium 139 mmol/L (137-145)
[2021-01-10 06:00] VITALS: BP 110/61; PULSE 80; RESP 16; TEMP 36.9; O2SAT 98
[2021-01-10 08:00] VITALS: PULSE 95
[2021-01-10] MEDS: SENNA/DOCUSATE SODIUM TABLET 1 TAB PO ×2 (08:34→16:53)
[2021-01-10] MEDS: TAMSULOSIN HCL 0.4 MG CAPSULE PO (08:34)
[2021-01-10] MEDS: OMEGA 3 POLYUNSAT FATTY ACIDS 1 GM CAP PO (08:34)
[2021-01-10] MEDS: PANTOPRAZOLE 40 MG TABLET PO (08:34)
[2021-01-10] MEDS: ASPIRIN 81 MG ENTERIC TABLET PO (08:34)
[2021-01-10] MEDS: OPTI-GEN TAB 1 TABLET PO (08:34)
[2021-01-10] MEDS: POTASSIUM CHLORIDE 20 MEQ TABLET.ER PO ×3 (08:34→16:53)
--- NOTE | 2021-01-10 09:30 | PM.IMPN ---
Progress Note: A&P Assessment and Plan (1) Sepsis: Qualifiers: Sepsis acute organ dysfunction status: without acute organ dysfunction Sepsis type: sepsis due to unspecified organism Qualified Code(s): A41.9 - Sepsis, unspecified organism Code(s): A41.9 - Sepsis, unspecified organism Status: Acute Assessment and Plan: The patient is a 66 year old man with a history of gout, hypokalemia, GERD, who presented to the ER with fevers and urinary incontinence for the last 24 hours. The patient's initial vitals showed low-grade fever of 99.2?, heart rate 93 beats per minute, blood pressure low normal at 102/61, and normal oxygenation on room air. Leukocytosis at 23,000, with a left shift, hypokalemia at 2.8, HOMERO with creatinine 1.7, BUN 26, elevated lactic acid 3.0, improved with IV fluids to 1.7. Normal LFTs. CRP elevated at 31.5. Urinalysis suspicious for cloudy urine with 3+ leukocyte esterase, WBCs greater than 75, hyaline casts greater than 50. He ws admitted into the hospital meeting criteria for sepsis with UTI. Continue IV abx and IV fluids. Sepsis present on admission and supported by fever, leukocytosis with left shift, and lactic acidosis in the setting of acute prostatitis. He was hydrated and repeat lactic acid level was within normal limits. Blood pressures are stable. Blood cultures negative today Urine cultures show greater than 100,000 E coli, sensitivity still pending. Continue monitoring. (2) Acute prostatitis: Code(s): N41.0 - Acute prostatitis Status: Acute Assessment and Plan: Patient has been started on Levaquin. He has been reporting urinary symptoms for a while. Will check a postvoid residual to make sure he is not having urinary retention CT scan showed enlarged prostate so started him on Flomax daily But will consult Urology for further evaluation and monitoring due to continued urinary issues Consider urology consultation if he is retaining high quantities or having other urinary issues (3) Acute on chronic renal failure: Code(s): N17.9 - Acute kidney failure, unspecified; N18.9 - Chronic kidney disease, unspecified Status: Acute Assessment and Plan: Secondary to dehydration and insensible losses though cannot rule out component of ATN from sepsis. He was adequately hydrated in the emergency department and we will encourage oral intake. Avoid nephrotoxic agents. (4) Hypokalemia: Code(s): E87.6 - Hypokalemia Status: Acute Assessment and Plan: Potassium was 3.1 this morning. Replenished with PO Potassium. Hold chlorthalidone. Will recheck this afternoon. (5) Dehydration: Code(s): E86.0 - Dehydration Status: Acute Assessment and Plan: He has been appropriately hydrated as detailed above. Encourage oral intake. (6) Obstructive sleep apnea: Code(s): G47.33 - Obstructive sleep apnea (adult) (pediatric) Status: Acute Assessment and Plan: CPAP will be provided for the patient to use while hospitalized. (7) Pre-diabetes: Code(s): R73.03 - Prediabetes Status: Acute Assessment and Plan: Hemoglobin A1c was 5.8% in August 2020. Time Spent With Patient Time with patient: 25 - 35 minutes Subjective Date/time seen: 01/10/21 09:30 Interval history: Date of Service 01/10/21: The patient is still having some lower abdominal ?pressure?. He still having some urinary symptoms. He feels like he is emptying completely, then a few minutes later he will have another sensation to urinate and does another large quantity. He denies any dysuria. He still reports more frequent urination than normal. Denies any fevers, chills, chest pain, shortness of breath, cough, nausea, vomiting, leg swelling, calf pain, or any other symptoms at this time. Review of Systems Review of Systems: All systems reviewed & are unremarkable except as noted in HPI and below
[2021-01-10] MEDS: POTASSIUM CHLORIDE 20 MEQ TABLET 40 MEQ PO ×2 (10:00→15:53)
--- NOTE | 2021-01-10 11:42 | WPDURCON ---
Assessment and Plan Assessment and plan (1) BPH loc w urin obs/LUTS: Code(s): N40.1 - Benign prostatic hyperplasia with lower urinary tract symptoms Status: Acute (2) Acute prostatitis: Code(s): N41.0 - Acute prostatitis Status: Acute Assessment and Plan: Two week course of oral antibiotics (Septra or quinolone) for acute prostatitis. Tamsulosin for 2 weeks to facilitate bladder emptying in the presence of acute prostate edema Finasteride in the care home to both manage his BPH and diminish his risk of recurrent infections in the future Urology Consult Note HPI Date Seen: 01/10/21 Requesting Physician: Katey Stafford PA-C Primary Care Provider: Jenny Reyes MD Consult Narrative Narrative: Gautam Winston is a 66 year old male was previously unknown to our practice admitted with symptoms of acute prostatitis. Retrospectively he has had several months of diminished stream with increased urinary urgency and nocturia a couple times per night. This is all suggestive of underlying prostatism. He denies prior urinary tract infections hematuria or impending urinary retention. On this occasion he developed acute dysuria urgency frequency with marked obstructive symptoms and sensation of incomplete emptying. He fevers and arthralgias. Urine culture has grown E coli, blood cultures are negative. This point he is voiding without obstructive symptoms with persistent frequency and urgency. Review of Systems Cardiovascular: Cardiovascular: Denies chest pain, Denies lightheadedness, Denies palpitations and Denies dyspnea Respiratory: Respiratory: Denies dyspnea Gastrointestinal: Gastrointestinal: Denies diarrhea, Denies nausea and Denies vomiting Genitourinary: Genitourinary: Denies hematuria and Denies dysuria Endocrine: Endocrine: Denies palpitations [facility] Past Medical History Medical History Atherosclerotic heart disease of [place] coronary artery without angina pectoris Cardiac catheterization in May 2011 showed essentially normal coronary arteries with very minor intimal irregularities in the left anterior descending artery. Nuñez's esophagus determined by biopsy Cervical radiculopathy Chronic kidney disease, stage 3 Average GFR is in the upper 40s to low 50s. Baseline creatinine ranges between 1.2 and 1.50. Chronic midline low back pain Current mild episode of major depressive disorder without prior episode Erectile dysfunction Essential hypertension Gout Kidney stones Obstructive sleep apnea Pre-diabetes Hemoglobin A1c was 5.8% on 08/13/2020. Surgical History Surgical History History of cardiac catheterization (05/20/11) Essentially normal coronary arteries with buried minor intimal irregularities in the LAD. History of cervical spinal surgery History of esophagogastroduodenoscopy History of lumbar surgery Family History Family History Father Family history of premature coronary heart disease, Onset Age: 58 Hypertension Carcinoma of colon Family history of Alzheimer's disease Mother Diabetes mellitus Family history of chronic obstructive pulmonary disease Hypertension Other Cerebrovascular accident Family history of cardiovascular disease Family history of malignant neoplasm Social History Social History Social History: Surrogate decision maker: Moni Winston, . Code status: Full code. Smoking status: Never smoker Second hand tobacco smoke exposure: No Alcohol intake: never Substance use: never Substance use type: does not use Additional living arrangements comments: Lives in [place] with his . 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 Spiritual care concerns: No
[2021-01-10] MEDS: POTASSIUM CHLORIDE 20 MEQ TABLET (12:31)
[2021-01-10 14:00] VITALS: BP 102/62; PULSE 80; RESP 18; TEMP 36.4; O2SAT 99
[2021-01-10 15:32] LABS: Potassium 3.4 mmol/L (3.4-5.0)
[2021-01-10] MEDS: ACETAMINOPHEN 325 MG TABLET 650 MG PO (20:35)
[2021-01-10] MEDS: diphenhydrAMINE HCl CAP 25 MG CAPSULE 50 MG PO (20:35)
[2021-01-10 22:00] VITALS: BP 126/70; PULSE 94; RESP 21; TEMP 36.7; O2SAT 100
[2021-01-11 05:52] LABS: Hematocrit 39.5 % (42.0-52.0); Hemoglobin 13.4 g/dL (14.0-18.0); Mean Corpuscular HGB Conc 33.9 g/dl (32-36); Mean Corpuscular Hemoglobin 28.6 pg (26-34); Mean Corpuscular Volume 84.2 fl (80-100); Platelet Count Result 199 k/mm3 (150-375); Red Blood Count 4.69 M/mm3 (4.6-6.20); Red Cell Distribution Width 16.1 % (11.5-14.5); White Blood Count 8.4 K/mm3 (4.5-10.0)
[2021-01-11 06:00] VITALS: BP 126/69; PULSE 90; RESP 20; TEMP 36.4; O2SAT 99
[2021-01-11 06:08] LABS: Potassium 3.7 mmol/L (3.4-5.0)
[2021-01-11 06:34] LABS: Anion Gap 8 mmol/L (8-16); Blood Urea Nitrogen 17 mg/dL (9-20); Calcium 8.5 mg/dL (8.4-10.2); Carbon Dioxide 28 mmol/L (22-30); Chloride 104 mmol/L (98-107); Estimated CRCL calculation 78 ml/min; Estimated Glomerular Filt Rate > 60; Glucose 122 mg/dL (65-110); Magnesium 2.1 mg/dL (1.6-2.3); Sodium 140 mmol/L (137-145)
--- NOTE | 2021-01-11 06:46 | WPDUROPN2 ---
Progress Note: A&P Assessment and Plan (1) BPH loc w urin obs/LUTS: Code(s): N40.1 - Benign prostatic hyperplasia with lower urinary tract symptoms Status: Acute (2) Acute prostatitis: Code(s): N41.0 - Acute prostatitis Status: Acute Assessment and Plan: By all measures, continues to improve. Likely home today. Would suggest abx. x2 weeks (Septra DS or Cipro/Levaquin), Tamsulosin 0.4mg qhs x2 weeks and Finsateride 5mg daily indefinately. F/U with us 3-4 weeks. Subjective Subjective Date/Time Seen: 01/11/21 06:46 Voiding better, afebrile and leukocytosis improving. Review of Systems Cardiovascular: Cardiovascular: Denies chest pain, Denies lightheadedness, Denies palpitations and Denies dyspnea Respiratory: Respiratory: Denies dyspnea Gastrointestinal: Gastrointestinal: Denies diarrhea, Denies nausea and Denies vomiting Genitourinary: Genitourinary: Denies hematuria and Denies dysuria Endocrine: Endocrine: Denies palpitations Exam Const: General: no acute distress Resp: Effort & Inspection: normal respiratory effort GI: Inspection: non-distended GI Palp: No abdominal tenderness and No Guarding due to palpation present (GI) Auscultation: normal bowel sounds Objective Data Vital Signs Vital Signs: Vital Signs - 24 hr 01/10/21 08:00 01/10/21 14:00 01/10/21 22:00 Temperature 97.6 F 98.0 F Pulse Rate 95 80 94 Respiratory Rate 18 21 H Blood Pressure 102/62 126/70 Pulse Oximetry 99 100 Intake/Output Intake/Output: Intake & Output 01/08/21 01/09/21 01/10/21 01/11/21 23:59 23:59 23:59 23:59 Intake Total 3750 1870 2270 650 Output Total 2425 300 Balance 3750 -555 1970 650 Meds/Results Medications: Active Medications Generic Name Dose Route Start Last Admin Trade Name Freq PRN Reason Stop Dose Admin Acetaminophen 650 mg 01/08/21 23:39 01/10/21 20:35 Acetaminophen 325 Mg Tablet PO 650 mg Q6H PRN Administration Mild Pain (1-3) or Fever Aspirin 81 mg 01/09/21 09:00 01/10/21 08:34 Aspirin 81 Mg Enteric Tablet PO 81 mg DAILY AMANDA Administration Diphenhydramine HCl 50 mg 01/09/21 20:20 01/10/21 20:35 Diphenhydramine Hcl Cap 25 Mg Capsule PO 50 mg HS PRN Administration Insomnia Finasteride 5 mg 01/11/21 09:00 Finasteride 5 Mg Tablet PO QAM [facility] Fish Oil 1 gm 01/09/21 09:00 01/10/21 08:34 [place] 3 Polyunsat Fatty Acids 1 Gm Cap PO 02/08/21 08:59 1 gm DAILY AMANDA Administration Levofloxacin/Dextrose 750 mg in 150 mls @ 100 mls/hr 01/09/21 15:00 01/10/21 15:55 Levaquin 750 Mg/D5w 150 Ml IVPB Infused 1500 AMANDA Infusion Multivitamins/Minerals 1 tablet 01/09/21 09:00 01/10/21 08:34 Opti-Gen Tab PO 1 tablet DAILY AMANDA Administration Pantoprazole Sodium 40 mg 01/09/21 09:00 01/10/21 08:34 Pantoprazole 40 Mg Tablet PO 02/08/21 08:59 40 mg DAILY AMANDA Administration Potassium Chloride 20 meq 01/09/21 09:00 01/10/21 16:53 Potassium Chloride 20 Meq Tablet.Er PO 20 meq TID AMANDA Administration Senna/Docusate Sodium 1 tab 01/09/21 09:00 01/10/21 16:53 Senna/Docusate Sodium Tablet PO 1 tab BID AMANDA Administration Tamsulosin HCl 0.4 mg 01/09/21 09:00 01/10/21 08:34 Tamsulosin Hcl 0.4 Mg Capsule PO 0.4 mg QAM AMANDA Administration Radiology Results: ITS Impressions Abdomen/Pelvis CT 01/08/21 13:27 IMPRESSION: 1. Inflammatory haziness to the fat at the base of the bladder surrounding prostate and seminal vesicles suspicious for prostatitis and/or cystitis. 2. Normal kidneys and ureters with no urolithiasis or hydronephrosis. 3. Diffuse hepatic steatosis. 4. Mild diverticulosis. 5. Small sliding-type hiatal hernia. Labs Labs: Laboratory Results - last 24 hr 01/10/21 01/11/21 01/11/21 15:18 05:32 05:32 WBC 8.4 RBC 4.69 Hgb 13.4 L Hct 39.5 L MCV 84.2 MCH 28.6 MCHC 33.9 RDW 16.1 H Plt Count 1
[2021-01-11] MEDS: OMEGA 3 POLYUNSAT FATTY ACIDS 1 GM CAP PO (08:43)
[2021-01-11] MEDS: SENNA/DOCUSATE SODIUM TABLET 1 TAB PO (08:43)
[2021-01-11] MEDS: FINASTERIDE 5 MG TABLET PO (08:43)
[2021-01-11] MEDS: OPTI-GEN TAB 1 TABLET PO (08:43)
[2021-01-11] MEDS: ASPIRIN 81 MG ENTERIC TABLET PO (08:43)
[2021-01-11] MEDS: TAMSULOSIN HCL 0.4 MG CAPSULE PO (08:43)
[2021-01-11] MEDS: PANTOPRAZOLE 40 MG TABLET PO (08:43)
[2021-01-11] MEDS: POTASSIUM CHLORIDE 20 MEQ TABLET.ER PO (08:43)
--- NOTE | 2021-01-11 10:18 | PM.DS ---
DS: Admitting Diagnosis Discharge Date 01/11/21 Admitting Diagnosis Fever DS: Discharge Diagnosis Discharge Diagnosis (1) Sepsis: Qualifiers: Sepsis acute organ dysfunction status: without acute organ dysfunction Sepsis type: sepsis due to unspecified organism Qualified Code(s): A41.9 - Sepsis, unspecified organism Code(s): A41.9 - Sepsis, unspecified organism Status: Acute Assessment and Plan: The patient is a 66 year old man with a history of gout, hypokalemia, GERD, who presented to the ER with fevers and urinary incontinence for the last 24 hours. The patient's initial vitals showed low-grade fever of 99.2?, heart rate 93 beats per minute, blood pressure low normal at 102/61, and normal oxygenation on room air. Leukocytosis at 23,000, with a left shift, hypokalemia at 2.8, HOMERO with creatinine 1.7, BUN 26, elevated lactic acid 3.0, improved with IV fluids to 1.7. Normal LFTs. CRP elevated at 31.5. Urinalysis suspicious for cloudy urine with 3+ leukocyte esterase, WBCs greater than 75, hyaline casts greater than 50. He ws admitted into the hospital meeting criteria for sepsis with UTI. Continue IV abx and IV fluids. Sepsis present on admission and supported by fever, leukocytosis with left shift, and lactic acidosis in the setting of acute prostatitis. He was hydrated and repeat lactic acid level was within normal limits. Blood pressures are stable. Blood cultures negative to date Urine cultures show greater than 100,000 E coli, sensitive to Levaquin Postvoid residual showed he was retaining 120 cc. Urology evaluated the patient and recommended oral Levaquin for a total of 14 days for the treatment of acute prostatitis. Recommends tamsulosin for 2 weeks and finasteride daily indefinitely. Recommends following up with urology in 3-4 weeks for further evaluation workup. Patient feels comfortable at this time and agrees the plan. Return to ER warnings given. Follow-up instructions given. The patient understands agrees with plan all questions answered. Will hold the patient's chlorthalidone due to the cause of his hypokalemia. Will stop the potassium 20 Pete t.i.d. which had been prescribed by the emergency room on 01/07/2021. Will recheck a BMP in a few days and have him follow-up with his primary care provider for further evaluation and monitoring of his electrolytes. (2) Acute prostatitis: Code(s): N41.0 - Acute prostatitis Status: Acute Assessment and Plan: (3) Acute on chronic renal failure: Code(s): N17.9 - Acute kidney failure, unspecified; N18.9 - Chronic kidney disease, unspecified Status: Acute Assessment and Plan: (4) Hypokalemia: Code(s): E87.6 - Hypokalemia Status: Acute Assessment and Plan: (5) Dehydration: Code(s): E86.0 - Dehydration Status: Acute Assessment and Plan: (6) Obstructive sleep apnea: Code(s): G47.33 - Obstructive sleep apnea (adult) (pediatric) Status: Acute Assessment and Plan: (7) Pre-diabetes: Code(s): R73.03 - Prediabetes Status: Acute Assessment and Plan: DS: Summary Hospital Course Hospital Course: See above Status at Discharge Cognitive/behavioral status at discharge: Stable, improved. Time Spent with Patient Time attestation: Total time spent providing and/or coordinating discharge services: 43 Time spent: Greater than 30 minutes Exam Narrative: General: 66-year-old man sitting up in the chair watching TV. Appears comfortable. In no acute distress. Skin: No jaundice or cyanosis. Good skin turgor. Neck: Full range of motion. Supple. Respiratory: Lungs are clear to auscultation bilaterally. No bony chest wall tenderness. Cardiovascular: The heart has a regular rate and rhythm without murmur. Lower extremities: No lower extremity edema. Distal
== END 2021-01-11 11:33 | disposition home or self-care (01) ==
LOC: ANHED 11:21 → ANH2MED 16:21
PROVIDERS: Physician Assistant; Admitting Provider Family Medicine; Emergency Provider Emergency Medicine; PCP Family Medicine; Visit Provider Internal Medicine Critical Care Medicine
DX: A41.9 Sepsis, unspecified organism (principal); N41.0 Acute prostatitis; N17.9 Acute kidney failure, unspecified; N40.1 Benign prostatic hyperplasia with lower urinary tract symptoms; N18.30 Chronic kidney disease, stage 3 unspecified; B96.20 Unspecified Escherichia coli [E. coli] as the cause of diseases classified elsewhere; E87.6 Hypokalemia; E86.0 Dehydration; R50.9 Fever, unspecified; R32 Unspecified urinary incontinence; I10 Essential (primary) hypertension; R73.03 Prediabetes; I12.9 Hypertensive chronic kidney disease with stage 1 through stage 4 chronic kidney disease, or unspecified chronic kidney disease; G47.33 Obstructive sleep apnea (adult) (pediatric)
CPT/HCPCS: 36415; 74176; 80048; 80053; 81001; 83605; 83690; 83735; 84132; 85025; 85027; 85055; 86140; 87040; 87077; 87086; 87186; 96361; 96365; 96366; 96367; 96368; 96375; 99285; A9270; G0378; J0131; J1956; J3475; J3480; J7030

== ENCOUNTER 2021-10-07 16:09 | Emergency (ER) | payer MEDICARE, MEDICAID, SELFPAY ==
[2021-10-07] VITALS (10 sets, daily range): BP systolic 117–158; BP diastolic 73–87; PULSE 77–89; RESP 14–18; TEMP 36.6; O2SAT 98–100
--- NOTE | ~2021-10-07 | CT_ITS ---
EXAMINATION: CT abd pelvis lumbar w con INDICATION: Urinary incontinence, weakness, low back pain TECHNIQUE: Computed tomographic images of the abdomen, pelvis and lumbar spine were obtained after th e administration of 100 cc of Omnipaque 300 intravenous contrast. The dose-length product (DLP) was 1 565.69 mGy-cm. Automated exposure control and iterative reconstruction technique were employed. COMPARISON: None available FINDINGS: Abdomen and pelvis CT: Minimal dependent atelectasis is present in the lung bases. The heart size is normal. There is a small sliding hiatal hernia. The liver, spleen, pancreas, gallbladder, and adrenal glands are normal. Hypoattenuating lesions in the kidneys, measuring up to 4 mm on the right, are to o small to characterize but likely represent cysts. No pathologically enlarged abdominal or pelvic ly mph nodes are identified. There is no free intraperitoneal gas or evidence of bowel obstruction. The appendix is normal. Colonic diverticulosis is present without evidence of diverticulitis. Lumbar spine: There are changes of anterior and posterior fusion at L3-4. There is severe loss of int ervertebral disc space height at L1-2, L4-5, and L5-S1. There is moderate loss of disc space height a t L2-3. The vertebral body heights are maintained. There is no fracture. The prevertebral soft tissue s are normal. IMPRESSION: 1. No CT correlate for the patient's symptoms. 2. Severe lumbar spondylosis without acute findings or significant interval change. Reviewed, dictated and finalized at location F. IMPRESSION: 1. No CT correlate for the patient's symptoms. 2. Severe lumbar spondylosis without acute findings or significant interval jung nge.
[2021-10-07 17:21] LABS: Appearance Urine Cloudy (Clear); Bilirubin Urine Negative (Negative); Blood Urine 2+ (Negative); Color Urine Yellow (Yellow); Glucose Urine UA Negative (Negative); Ketones Urine Trace mg/dL (Negative); Leukocyte Esterase Ur 2+ LEU/UL (Negative); Nitrate Urine Positive (Negative); Protein Urine Trace mg/dL (Negative); Specific Grav Ur 1.025 (1.001-1.035); Urobilinogen Urine 0.2 mg/dL (<2.0); pH Urine 5.5 (5.0-9.0)
[2021-10-07 17:29] LABS: Bacteria Urine Trace /hpf; Mucus Urine Rare /lpf; RBC Urine >75 /hpf (0-2); Squamous Epithelial Cell Urine Rare /hpf (Few); WBC Urine >75 /hpf
[2021-10-07 17:30] LABS: Add Urine Microscopic? YES
--- NOTE | 2021-10-07 17:52 | ED.MALEGU ---
HPI - Male Genitourinary General Chief complaint: Urogenital-Male Stated complaint: URINARY S/S Time Seen by Provider: 10/07/21 16:32 Source: patient Mode of arrival: ambulatory History of Present Illness HPI Narrative: This is a 66-year-old male with past medical history significant for prostatitis MRI and spine surgery (approximately 12 years ago) who presents to the emergency department complaining of urinary incontinence and decreased sensation in the groin for the past 2 to 3 days. Patient notes during that time he has had difficulty urinating, associated with episodes of urgent need to urinate without warning. He is also noted, intermittently, when urinating he feels that he is incompletely filled his bladder and he needs to press externally. He also notes yesterday during sex he was able to ejaculate but had diminished sensation. He denies leg weakness, fevers, chills, trauma, bowel incontinence or loss of sensation at the anus. Related Data Home Medications Medication Instructions Recorded Confirmed aspirin 81 mg tablet,delayed 81 mg PO DAILY 05/19/19 09/08/21 release (Adult Low Dose Aspirin) zywqtgdq-lli-kamao acid 300 1 tablet PO DAILY 06/25/20 09/08/21 mcg-lycopene 600 mcg-lutein 300 mcg tablet (Complete Men 50 Plus) omega 3-yhh-cfk-fish oil 100 1 cap PO DAILY 06/25/20 09/08/21 mg-160 mg-1,000 mg capsule (Fish Oil) sennosides 8.6 mg-docusate sodium 1 tab-cap PO BID 01/07/21 09/08/21 50 mg tablet (Senna with Docusate Sodium) Allergies Allergy/AdvReac Type Severity Reaction Status Date / Time No Known Allergies Allergy Verified 10/07/21 17:03 Review of Systems Review of Systems: CONSTITUTIONAL: Denies fever, chills, unanticipated weight loss or sweats. EYES: Denies visual changes, redness, or discharge. CARDIOVASCULAR: Denies chest pain, palpitations, or edema. RESPIRATORY: Denies cough or dyspnea. GASTROINTESTINAL: Denies abdominal pain, nausea, vomiting, or diarrhea. GENITOURINARY: +Urinary incontinence, denies dysuria or hematuria. SKIN: Denies rash or itching. MUSCULOSKELETAL: Denies back pain, joint pain, or myalgia. NEUROLOGIC: Denies headache, numbness, dizziness, or weakness. PSYCHIATRIC: Denies anxiety or depression. [facility] Past Medical History Medical History (Updated 10/07/21 @ 21:09 by Ezequiel Shah MD) Atherosclerotic heart disease of [place] coronary artery without angina pectoris Cardiac catheterization in May 2011 showed essentially normal coronary arteries with very minor intimal irregularities in the left anterior descending artery. Nuñez's esophagus determined by biopsy Body mass index (BMI) of 40.0-44.9 in adult Cervical radiculopathy Chronic kidney disease, stage 3 Average GFR is in the upper 40s to low 50s. Baseline creatinine ranges between 1.2 and 1.50. Chronic midline low back pain Class 3 severe obesity due to excess calories without serious comorbidity in adult Coronary artery disease involving nav[place] coronary artery Current mild episode of major depressive disorder without prior episode Dermoid cyst of neck Erectile dysfunction Essential hypertension Gout H/O diabetes mellitus Hematochezia Kidney stones Narcotic dependence Obstructive sleep apnea Other chest pain Other chronic pain Pre-diabetes Hemoglobin A1c was 5.8% on 08/13/2020. RLQ abdominal pain Stress Surgical History Surgical History History of cardiac catheterization (05/20/11) Essentially normal coronary arteries with buried minor intimal irregularities in the LAD. History of cervical spinal surgery History of esophagogastroduodenoscopy History of lumbar surgery Family History Family History Father Family history of premature coronary heart disease, Onset Age: 58 Hypertension Carcinoma of colon Family history of Alzheimer's disease Mother Diabe
[2021-10-07 18:31] LABS: Basophils Absolute Auto 0.1 K/mm3 (0.0-0.1); Basophils Percent Auto 0.6 % (0.2-1.2); Eosinophils Absolute Auto 0.3 K/mm3 (0-0.3); Eosinophils Percent Auto 2.7 % (0-4.4); Hematocrit 43.3 % (42.0-52.0); Immature Granulocyte Absolute 0.03 K/mm3 (0.00-0.031); Immature Granulocyte Percent A 0.3 % (0-0.5); Lymphocytes Absolute Auto 2.46 K/mm3 (0.9-3.2); Lymphocytes Percent Auto 25.9 % (18.3-44.2); Mean Corpuscular HGB Conc 32.3 g/dl (32-36); Mean Corpuscular Hemoglobin 28.7 pg (26-34); Mean Corpuscular Volume 88.9 fl (80-100); Monocytes Absolute Auto 0.7 K/mm3 (0.1-0.6); Monocytes Percent Auto 7.5 % (2.6-8.5); Platelet Count Result 175 k/mm3 (150-375); Red Blood Count 4.87 M/mm3 (4.6-6.20); Red Cell Distribution Width 14.6 % (11.5-14.5); White Blood Count 9.5 K/mm3 (4.5-10.0)
[2021-10-07 18:41] LABS: Alanine Aminotransferase 31 U/L (6-50); Albumin Level 4.6 g/dL (3.5-5.1); Alkaline Phosphatase 77 U/L (38-126); Anion Gap 7 mmol/L (8-16); Aspartate Amino Transferase 34 U/L (17-59); Bilirubin,Total 0.4 mg/dL (0.2-1.3); Blood Urea Nitrogen 17 mg/dL (9-20); Calcium 9.2 mg/dL (8.4-10.2); Carbon Dioxide 28 mmol/L (22-30); Chloride 107 mmol/L (98-107); Estimated CRCL calculation 66 ml/min; Estimated Glomerular Filt Rate 51; Glucose 93 mg/dL (65-110); Potassium 4.3 mmol/L (3.4-5.0); Sodium 142 mmol/L (137-145)
== END 2021-10-07 20:28 | disposition home or self-care (01) ==
PROVIDERS: Emergency Provider Preventive Medicine Aerospace Medicine; PCP Family Medicine
DX: N41.0 Acute prostatitis (principal); R10.2 Pelvic and perineal pain; I25.10 Atherosclerotic heart disease of native coronary artery without angina pectoris; I12.9 Hypertensive chronic kidney disease with stage 1 through stage 4 chronic kidney disease, or unspecified chronic kidney disease; E11.22 Type 2 diabetes mellitus with diabetic chronic kidney disease; N18.30 Chronic kidney disease, stage 3 unspecified; E66.01 Morbid (severe) obesity due to excess calories; K22.70 Barrett's esophagus without dysplasia; M10.9 Gout, unspecified; G47.33 Obstructive sleep apnea (adult) (pediatric); Z68.35 Body mass index [BMI] 35.0-35.9, adult; Z87.442 Personal history of urinary calculi; Z79.82 Long term (current) use of aspirin
CPT/HCPCS: 36415; 72132; 74177; 80053; 81001; 85025; 87077; 87086; 87186; 99284; A9270; Q9967

== ENCOUNTER 2022-01-20 13:13 | Outpatient (CLI) | payer MEDICARE, MEDICAID, SELFPAY ==
--- NOTE | ~2022-01-20 | US_ITS ---
EXAMINATION: US scrotum doppler DATE: 01/20/2022 14:43 INDICATION: Orchialgia TECHNIQUE: Testicular sonogram utilizing grayscale and Doppler COMPARISON: None. FINDINGS: The right testis measures 3.7 x 2.1 x 1.7 cm. The left testis measures 3.8 x 2.8 x 1.9 cm. There is normal vascular flow to both testes. The right epididymis is normal with normal vascular kaila w. The left epididymis contains a 10 mm cyst or spermatocele.. There is a tiny left hydrocele. IMPRESSION: 1. Tiny left hydrocele. Reviewed, dictated and finalized at location F. IMPRESSION: 1. Tiny left hydrocele.
--- NOTE | ~2022-01-20 | XR_ITS ---
EXAMINATION: XR abdomen/kub 1V INDICATION: Recurrent urinary tract infection TECHNIQUE: Supine views of the abdomen were obtained on 2 radiographs. COMPARISON: 12/23/2009 FINDINGS: The bowel gas pattern is normal. No urolithiasis is identified. There is moderate osteitis pubis. There is mild osteoarthritis of the hips. IMPRESSION: 1. No radiographic correlate for the patient's symptoms. Reviewed, dictated and finalized at location F.
--- NOTE | ~2022-01-20 | CT_ITS ---
EXAMINATION: CT abdomen pelvis wo con DATE: 01/20/2022 13:43 INDICATION: Recurrent urinary tract infections TECHNIQUE: Computed tomography (CT) of the abdomen and pelvis was performed without intravenous contr ast. The dose-length product (DLP) was 1481.83 mGy-cm. Automated exposure control and iterative recon struction technique were employed. COMPARISON: None FINDINGS: Minimal dependent atelectasis is present in the lung bases. The heart size is normal. The l iver, spleen, pancreas, gallbladder, and adrenal glands are normal. The kidneys are unremarkable. No stones are identified in the kidneys, ureters, or bladder. There is no hydronephrosis or hydroureter. No pathologically enlarged abdominal or pelvic lymph nodes are identified. There is no free intraper itoneal gas or evidence of bowel obstruction. The appendix is normal. Colonic diverticulosis is prese nt without evidence of diverticulitis. There are changes of anterior and posterior fusion at L3-4. Th ere is severe spondylosis at L1-2. IMPRESSION: 1. No CT correlate for the patient's symptoms. Reviewed, dictated and finalized at location F.
== END 2022-01-20 13:14 | disposition home or self-care (01) ==
PROVIDERS: PCP Family Medicine; Visit Provider Nurse Practitioner Adult Health
DX: N39.0 Urinary tract infection, site not specified (principal); N50.819 Testicular pain, unspecified
CPT/HCPCS: 74018; 74176; 76870; 93976

== ENCOUNTER 2022-11-23 08:31 | Outpatient (CLI) | payer MEDICARE, MEDICAID, SELFPAY ==
[2022-11-23 09:07] LABS: Alanine Aminotransferase 31 U/L (6-50); Albumin Level 4.4 g/dL (3.5-5.1); Alkaline Phosphatase 83 U/L (38-126); Anion Gap 6 mmol/L (8-16); Aspartate Amino Transferase 31 U/L (17-59); Bilirubin,Total 0.3 mg/dL (0.2-1.3); Blood Urea Nitrogen 16 mg/dL (9-20); Carbon Dioxide 29 mmol/L (22-30); Chloride 105 mmol/L (98-107); Cholesterol 183 mg/dL (0-200); Estimated Glomerular Filt Rate > 60; Glucose 98 mg/dL (65-110); HDL Direct 33 mg/dL; Sodium 140 mmol/L (137-145); Triglycerides 298 mg/dL (<150)
[2022-11-23 09:15] LABS: Hemoglobin A1C 5.6 % (<5.7)
[2022-11-23 09:18] LABS: LDL Cholesterol Direct 106 mg/dL
== END 2022-11-23 08:32 | disposition home or self-care (01) ==
LOC: ANHLAB 08:33
PROVIDERS: PCP Family Medicine; Visit Provider Physician Assistant
DX: Z13.1 Encounter for screening for diabetes mellitus (principal); Z13.220 Encounter for screening for lipoid disorders; E11.9 Type 2 diabetes mellitus without complications
CPT/HCPCS: 36415; 80053; 80061; 83036

== ENCOUNTER 2023-08-01 08:31 | Outpatient (CLI) | payer MEDICARE, SELFPAY ==
--- NOTE | ~2023-08-01 | XR_ITS ---
XR knee RT min 4V 08/01/2023 08:56 Indication: Right knee pain Procedure: 4 views right knee Comparison: No prior studies for comparison. Findings: Moderate tricompartment osteoarthritis of the right knee. No fracture, subluxation or dislo cation. No joint effusion. Impression: 1: Moderate tricompartment osteoarthritis of the right knee. Reviewed, dictated and finalized at location B. Impression: 1: Moderate tricompartment osteoarthritis of the right knee.
== END 2023-08-01 08:32 | disposition home or self-care (01) ==
LOC: CHSIMG 08:33
PROVIDERS: PCP Family Medicine; Visit Provider Orthopaedic Surgery
DX: S89.91XA Unspecified injury of right lower leg, initial encounter (principal); M25.561 Pain in right knee; M79.89 Other specified soft tissue disorders; M17.11 Unilateral primary osteoarthritis, right knee
CPT/HCPCS: 73564

== ENCOUNTER 2023-11-09 07:07 | Outpatient (CLI) | payer MEDICARE, SELFPAY ==
[2023-11-09 07:42] LABS: Hemoglobin A1C 5.7 % (<5.7)
[2023-11-09 08:22] LABS: Alanine Aminotransferase 58 U/L (16-63); Albumin Level 3.6 g/dL (3.4-5.0); Alkaline Phosphatase 71 U/L (46-116); Anion Gap 7 mmol/L (4-12); Aspartate Amino Transferase 31 U/L (15-37); Bilirubin,Total 0.3 mg/dL (0.00-1.00); Blood Urea Nitrogen 21 mg/dL (7-18); Calcium 8.7 mg/dL (8.5-10.1); Carbon Dioxide 28 mmol/L (21-32); Chloride 108 mmol/L (98-108); Cholesterol 144 mg/dL (0-200); Estimated Glomerular Filt Rate 58; Glucose 96 mg/dL (70-99); HDL Direct 30 mg/dL (40-60); LDL Cholesterol Calculated 86 mg/dL (<130); Osmolality Calculated 299 mOsm/kg (285-295); Potassium 4.8 mmol/L (3.5-5.1); Prostate Specific Antigen 0.4 ng/mL (< OR = 4.0); Sodium 143 mmol/L (136-145); Total Protein 6.6 g/dL (6.4-8.2); Triglycerides 139 mg/dL (0-150)
== END 2023-11-09 07:08 | disposition home or self-care (01) ==
LOC: CHSLAB 07:09
PROVIDERS: PCP Family Medicine; Visit Provider Physician Assistant Medical
DX: Z13.1 Encounter for screening for diabetes mellitus (principal); Z12.5 Encounter for screening for malignant neoplasm of prostate; E78.2 Mixed hyperlipidemia
CPT/HCPCS: 36415; 80053; 80061; 83036; 84153; G0103

== ENCOUNTER 2023-11-21 11:30 | Outpatient (CLI) | payer MEDICARE, SELFPAY ==
--- NOTE | ~2023-11-21 | XR_ITS ---
XR hip RT 2V w AP pelvis 11/21/2023 11:49 Indication: Chronic hip pain Procedure: AP pelvis and 2 views right hip Comparison: 02/12/2020 Findings: There has been interval progression of moderate osteoarthritis of the right hip. Mild osteo arthritis of the left hip. There are symmetric degenerative changes of the sacroiliac joints. There i s mild osteitis pubis. Pelvic rings intact. No fracture or traumatic malalignment. There is lower lum bar spondylosis with lumbar fusion partially visualized. Impression: 1: Interval progression of moderate osteoarthritis of the right hip. Reviewed, dictated and finalized at location B. Impression: 1: Interval progression of moderate osteoarthritis of the right hip.
== END 2023-11-21 11:31 | disposition home or self-care (01) ==
LOC: CHSIMG 11:31
PROVIDERS: PCP Family Medicine; Visit Provider Student in an Organized Health Care Education/Training Program
DX: M25.551 Pain in right hip (principal); M16.11 Unilateral primary osteoarthritis, right hip
CPT/HCPCS: 73502

== ENCOUNTER 2024-06-21 15:53 | Emergency (ER) | payer MEDICARE, SELFPAY ==
--- NOTE | ~2024-06-21 | XR_ITS ---
XR chest 2V Ordering provider: Ezequiel Shah MD History: 69 years Male with . Dyspnea on exertion, numbness in b/l legs . Comparison: None. FINDINGS: MEDIASTINUM: The cardiac silhouette is not enlarged. LUNGS: No infiltrates, effusions or pneumothorax. OTHER: No free air under the diaphragm. Degenerative changes of the spine. IMPRESSION: No acute cardiopulmonary pathology. Reviewed, dictated and finalized at location A.
[2024-06-21 15:53] VITALS: BP 163/95; PULSE 83; RESP 20; TEMP 36.2; O2SAT 96
--- OUTSIDE RECORDS SUMMARY | 2024-06-21 15:56 | XMS_ITS | Clinical Summary ---
Author Organization [facility] Address [address] [place] [id number] Care Team Providers Care Substitute Teacher Name Role Phone Unavailable Primary Care Provider Unavailabl e Social History Tobacco Use Types Packs/Day Years Used Date Smoking Tobacco: Never Assessed Sex and Gender Information Value Date Recorded Sex Assigned at Not on file Legal Sex Male 10:24 PM CDT Gender Identity Not on file Sexual Orientation Not on file Plan of Treatment Health Maintenance Due Date Last Done Comments Colorectal Cancer Screening Colonoscopy (10 Years) 1957 Hepatitis C 1975 DTaP, Tdap and Td Vaccines ( 1 - Tdap) 01/04/1976 Zoster Vaccines (1 of 2) 2007 Pneumococcal Vaccine: 65+ Ye ars (1 of 1 - PCV) 2022 COVID-19 Vaccine ( - 2023-2 5 season) 2023 Influenza Adult (#1) 2024 RSV Immunization or 60+ Years (1 - 1-dose 75+ series) 01/04/2032 Meningococcal B Vaccine Aged Out No l onger eligible based on patient's age to complete this topic Meningococcal Vaccine Aged Out No kristopher yunior eligible based on patient's age to complete this topic RSV Immunizations Under 20 Months Aged Out No longer eligible based on patient's age to complete this topic
--- OUTSIDE RECORDS SUMMARY | 2024-06-21 15:56 | XMS_ITS | Clinical Summary ---
Author Organization [facility] [place] [address] Address [address] [place] [address] Care Team Providers Care Hi Lo Driver Name Role Phone Jenny Reyes MD Primary Care Provider [phone] Allergies No known active allergies Medications acetaminophen ER (TYLENOL) 650 mg 8 hr tablet Take 1,950 mg by mouth nightly Active omega-3 fatty acids-fish oil 300-1,000 mg capsule Take 2 g by mouth 2 (two) times a day Active aspirin 81 mg tablet Take 81 mg by mouth daily Active diphenhydrAMINE (BENADRYL) 25 mg capsule Take 25 mg by mouth nightly Active docusate sodium (STOOL SOFTENER ORAL) Take 1 capsule by mouth 2 (two) times a day Active chlorthalidone 25 mg tablet Take 25 mg by mouth nightly Active omeprazole (PriLOSEC) 40 mg capsule Take 40 mg by mouth daily Active atorvastatin (LIPITOR) 20 mg tabletIndication s:Chest pain, unspecified type Take 1 tablet (20 mg total) by mouth daily 30 tablet 11 9 Active Additional Information Patient taking differently:20 mg oralNightly, Reported on 06/27/2018 blood glucose diagnostic strip Act dawood multivit with minerals/lutein (MULTIVITAMIN 50 PLUS ORAL) Take 1 tablet by mouth daily Active dilTIAZem CD/XR/XT (CARDIZEM CD,DILACOR XR) 120 mg 24 hr capsuleIndicatio ns:Chronic Stable Angina Pectoris Take 1 capsule (120 mg total) by mouth daily 30 capsule 3 9 Active Active Problems Problem Noted Date Diagnosed Date Chest pain 06/19/2018 Lipid screening 06/19/2018 Abnormal stress test 06/19/2018 KEE on CPAP 06/19/2018 Essential hypertension 06/19/2018 Family history of coronary artery disease 2018 RBBB 06/19/2018 Nuñez's esophagus with dysplasia 06/19/2018 Hypertension associated with diabetes 06/19/2018 Abnormal cardiovascular stress test 06/19/2018 Overview (06/19/2018): Added automatically from request for surgery [id number] Mass of breast 11/12/2012 Overview (07/15/2016): Left breast lump Surgical History Surgery Date Site/Laterality Comments OTHER SURGICAL HISTORY back surgeries x 3 OTHER SURGICAL HISTORY 04/10/2012 - 04/09/2013 cervical surgery TONSILLECTOMY Tonsillectomy NECK SURGERY BACK SURGERY Medical History Medical History Date Comments Hypertension Hypertension Sleep apnea Chest pain Abnormal stress test PONV (postoperative nausea and vomiting) Hyperlipidemia GERD (gastroesophageal reflux disease) History of gastric ulcer History of diabetes mellitus Arthritis History of transfusion Family History Medical History Relation Name Comments Colon cancer Father Colon cancer - (Added by TW Conv) Coronary artery disease Father Donald nary artery disease; Dementia Father Heart disease Father Family history of cardiac disorder - (Added by TW Conv) Pulmonary fibrosis Mother Family hi story of pulmonary fibrosis - (Added by TW Conv) Relation Name Status Comments Father Mother Social History Tobacco Use Types Packs/Day Years Used Date Smoking Tobacco: Never Smokeless Tobacco: Former Alcohol Use Standard Drinks/Week Comments Yes 0 (1 standard drink = 0.6 oz pur e alcohol) 5-6 beers per year Sex and Gender Information Value Date Recorded Sex Assigned at Not on file 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 Gender Identity Not on file Sexual Orientation Not on file Obstetrics History Last Filed Vital Signs Vital Sign Reading Time Taken Comments Blood Pressure 126/65 06/28/2018 2:15 PM CDT Pulse 66 06/28/2018 2:30 PM CDT Temperature 36.7 C (98 F) 06/28/2018 10:18 AM CDT Respiratory Rate 16 06/28/2018 10:18 AM CDT Oxygen Saturation 96% 06/28/2018 1:20 PM CDT Inhaled Oxygen Concentration - - Weight 117.3 kg (258 lb 8 oz) 06/28/2018 10:18 A M CDT Height 185.4 cm (6' 1 ) 06/28/2018 10:18 AM CDT Body Mass Index 34.1 06/28/2018 10:18 AM CDT Plan of Treatment Not on file Medical Devices Implanted Type Area Lay Brother Device Identifier Shelf Expiration Date Model / Serial / Lot [employer] [id number] Angio-Seal Vip Bon[place]k-Plus 6fr .035in 70cm Hemostatic Latex Free - [id number] Implanted:Qty: 1 on 06/28/2018 by Tim Preston MD at [facility] Right: Groin [employer] 03/09/2019 [id number] / / [id number] Insurance [facility] H[facility] REF [facility] REF [place] [id number] Care Teams Hi Lo Driver Relationship Specialty Start Date End Date Jenny Reyes MD PCP - General Family Medicine 06/12/18
--- OUTSIDE RECORDS SUMMARY | 2024-06-21 15:56 | XMS_ITS | Referral Summary ---
Author Organization [facility] [place] [address] Address [address] [place] [address] Care Team Providers Care Snow Plow Operator Name Role Phone Jenny Reyes MD Primary Care Provider [phone] Allergies No known active allergies Medications acetaminophen [...] (06/19/2018): Added automatically from request for surgery [id number] Mass of breast 11/12/2012 Overview (07/15/2016): Left breast lump Social History Tobacco Use Types Packs/Day Years Used Date Smoking Tobacco: Never Smokeless Tobacco: Former Alcohol Use Standard Drinks/Week Comments Yes 0 (1 standard drink = 0.6 oz pur e alcohol) 5-6 beers per year Sex and Gender Information Value Date Recorded Sex Assigned at Not on file 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 Gender Identity Not on file Sexual Orientation Not on file Last Filed Vital Signs Vital Sign Reading [...] on file Medical Devices Implanted Type Area Manager Software Device Identifier Shelf Expiration Date Model / Serial / Lot [employer] [id number] Angio-Seal Vip Bondek-Plus 6fr .035in 70cm Hemostatic Latex Free - [id number] Implanted:Qty: 1 on 06/28/2018 by Tim Preston MD at [facility] Right: Groin [employer] 03/09/2019 [id number] / / [id number] Insurance [facility] Address: [address] [address] [place] [id number] [facility] REF [facility] Address: [address] [address] [place] [address] Care Teams Snow Plow Operator Relationship Specialty Start Date End Date Jenny Reyes MD PCP - General Family Medicine 06/12/18
--- OUTSIDE RECORDS SUMMARY | 2024-06-21 15:56 | XMS_ITS | Patient Health Summary ---
Author Organization [facility] [employer] Address [address] [place] [address] Care Team Providers Care Plastics Technician Name Role Phone Unavailable Primary Care Provider Unavailabl e Note from [facility],non-owned Affiliates and Associated Physician Practices is amultiple site organization consisting of ambulatory clinics and hospital sitesin [place], [place], [place] and [place]. This disclosure is being madepursuant to the Care Everywhere program and may not contain all information available regarding this patient. Last updated 17.[facility] [employer] Social History Tobacco Use Types Packs/Day Years Used Date Smoking Tobacco: Never Assessed Sex and Gender Information Value Date Recorded Sex Assigned at Not on file Gender Identity Not on file Sexual Orientation Not on file
--- OUTSIDE RECORDS SUMMARY | 2024-06-21 15:56 | XMS_ITS | Referral Summary ---
Author Organization [facility] Address [address] [place] [address] Care Team Providers Care Tar Worker Name Role Phone Unavailable Primary Care Provider Unavailabl e Source Comments [facility],non-[facility] Affiliates and Associated Physician Practices is amultiple site organization consisting of ambulatory clinics and hospital sitesin [place], [place], [place] and [place]. This disclosure is being madepursuant to the Care Everywhere program and may not contain all information available regarding this patient. Last updated 17.[facility] [employer] Social History Tobacco Use Types Packs/Day Years Used Date Smoking Tobacco: Never Assessed Sex and Gender Information Value Date Recorded Sex Assigned at Not on file Gender Identity Not on file Sexual Orientation Not on file Plan of Treatment Not on file
--- OUTSIDE RECORDS SUMMARY | 2024-06-21 15:56 | XMS_ITS | Clinical Summary ---
Author Organization [facility] [employer] Address [address] [place] [address] Care Team Providers Care Lift Driver Name Role Phone Unavailable Primary Care Provider Unavailabl e Source Comments [facility],non-owned Affiliates and Associated Physician Practices is amultiple site organization consisting of ambulatory clinics and hospital sitesin [place], [place], [place] and [place]. This disclosure is being madepursuant to the Care Everywhere program and may not contain all information available regarding this patient. Last updated 17.[facility] [employer] Social History Tobacco Use Types Packs/Day Years Used Date Smoking Tobacco: Never Assessed Sex and Gender Information Value Date Recorded Sex Assigned at Not on file Gender Identity Not on file Sexual Orientation Not on file Plan of Treatment Health Maintenance Due Date Last Done Comments COLOGUARD (AGES 45-75) - COL ON CA SCREENING 1957 COLON MONITORING 1957 COLONOSCOPY - COLON CA SCREENING 1957 CT COLONOGRAPHY - COLON CA SCREENING 1957 Colorectal Cancer Screening 1957 FIT - COLON CA SCREENING 1957 FLEX SIG - COLON CA SCREENING 1957 LIPID TESTING 1957 HEPATITIS C SCREENING 12/30/1974 DTAP/TDAP/TD VACCINES (1 - Tdap) 01/04/1976 PNEUMOCOCCAL VACCINE 50+ (1 of 1 - PCV) 2007 ZOSTER VACCINE (1 of 2) 2007 COVID-19 VACCINE (1 - 2023-2 5 season) 2023 INFLUENZA VACCINE (#1) 2023 DEPRESSION SCREENING 04/10/2024 MEDICARE AWV CALENDAR YEAR 2024 Respiratory Syncytial Virus (RSV) Vaccine Pt: or over 60 yrs (1 - 1-dose 75+ series) 01/04/2032 HEPATITIS B VACCINE Aged Out No longe r eligible based on patient's age to complete this topic HIB VACCINE Aged Out No longer eligi ble based on patient's age to complete this topic HPV VACCINE Aged Out No longer eligi ble based on patient's age to complete this topic MENINGOCOCCAL (Group B) VACC INE SHARED DECISION-MAKING Aged Out No longer eligibl e based on patient's age to complete this topic MENINGOCOCCAL GROUPS A/C/Y/W VACCINE Aged Out No longer eligible b ased on patient's age to complete this topic
--- OUTSIDE RECORDS SUMMARY | 2024-06-21 15:56 | XMS_ITS | CONTINUITY OF CARE DOCUMENT ---
Author Name erikjemmachris Address Unknown Organization [facility] Address [address] [place] [address] Phone [phone] Care Team Providers Care Textile Clothing And Footwear Mechanic Name Role Phone Alden GARCIA, Pati Unavailable RAMIN CORDERO MD Unavailable [phone] RAMIN CORDERO MD Unavailable [phone] INSURANCE PROVIDERS Payer name Policy type / Coverage type [place] red green party ID UHC MEDICARE COMPLETE HMO Other [id number]
--- NOTE | 2024-06-21 16:11 | ECG_ITS ---
Test Date: 2024-06-21 16:24:54 Measurements Intervals [place] Rate: 76 P: 65 TX: 189 QRS: 265 QRSD: 145 T: 33 QT: 391 QTc: 440 Interpretive Statements SINUS RHYTHM RIGHT AXIS DEVIATION [QRS AXIS > 100] RIGHT BUNDLE BRANCH BLOCK [120+ ms QRS DURATION, UPRIGHT V1, 40+ ms S IN I/aVL/V4/V5/V6] INFERIOR MYOCARDIAL INFARCTION , OF INDETERMINATE AGE [40+ ms Q WAVE AND/OR ST/T ABNORMALITY IN II/aVF] No previous ECG available for comparison Electronically Signed On 06-21-2024 16:30:46 CDT by Valerie Rdz M.D.
--- NOTE | 2024-06-21 16:29 | ED_ITS ---
HPI - SOB/Dyspnea General Chief Complaint: Shortness of Breath/Dyspnea Stated Complaint: brianna lower leg swelling Source: patient Mode of arrival: ambulatory Limitations: no limitations History of Present Illness HPI Narrative: This is a 69-year-old male, with history of CKD stage 3 and coronary artery disease with last echo done in 2019 (EF 65-70%) who presents to the emergency department complaining of bilateral lower extremity swelling and dyspnea on exertion. He states he has had right leg pain and swelling for the past 6 weeks and yesterday noticed swelling in the left leg. This is accompanied by moderate discomfort related to tightness. He states he has also noticed dyspnea on exertion, becoming winded after walking approximately 100 yd which is unusual for him. He has no other complaints at this time. Related Data Home Medications ?Medication ?Instructions ?Recorded ?Confirmed ?Last Taken ?Type aspirin 81 mg tablet,delayed 81 mg PO DAILY 05/19/19 01/02/24 01/06/21 History release (Adult Low Dose Aspirin) fsrgbpdl-iv-fmbzq 300 mcg-K 60 1 tablet PO DAILY 06/25/20 01/02/24 01/06/21 History mcg-lycop 600 mcg-lutein 300 mcg tablet (Complete Men 50 Plus) omega 0-spz-dlx-fish oil 100 1 cap PO DAILY 06/25/20 01/02/24 01/06/21 History mg-160 mg-1,000 mg capsule (Fish Oil) sennosides 8.6 mg-docusate sodium 1 tab-cap PO BID 01/07/21 01/02/24 01/06/21 History 50 mg tablet (Senna with Docusate Sodium) diphenhydramine HCl 25 mg capsule 25 mg PO HS 06/21/24 Unknown History (Benadryl) Allergies Allergy/AdvReac Type Severity Reaction Status Date / Time No Known Allergies Allergy Verified 01/02/24 09:06 Review of Systems 2 Review of Systems: All systems reviewed & are unremarkable except as noted in HPI and below PMFSH Past Medical History Medical History Stress RLQ abdominal pain Other chronic pain Other chest pain Narcotic dependence Hematochezia H/O diabetes mellitus Dermoid cyst of neck Coronary artery disease involving wiyot coronary artery Class 3 severe obesity due to excess calories without serious comorbidity in adult Body mass index (BMI) of 40.0-44.9 in adult Kidney stones Pre-diabetes Hemoglobin A1c was 5.8% on 08/13/2020. Chronic kidney disease, stage 3 Average GFR is in the upper 40s to low 50s. Baseline creatinine ranges between 1.2 and 1.50. Gout Obstructive sleep apnea Atherosclerotic heart disease of wiyot coronary artery without angina pectoris Cardiac catheterization in May 2011 showed essentially normal coronary arteries with very minor intimal irregularities in the left anterior descending artery. Nuñez's esophagus determined by biopsy Cervical radiculopathy Chronic midline low back pain Current mild episode of major depressive disorder without prior episode Erectile dysfunction Essential hypertension Surgical History Surgical History History of lumbar surgery History of cervical spinal surgery History of esophagogastroduodenoscopy History of cardiac catheterization (05/20/11) Essentially normal coronary arteries with buried minor intimal irregularities in the LAD. Family History Family History Father Family history of premature coronary heart disease, Onset Age: 58 Hypertension Carcinoma of colon Family history of Alzheimer's disease Mother Diabetes mellitus Family history of chronic obstructive pulmonary disease Hypertension Other Cerebrovascular accident Family history of cardiovascular disease Family history of malignant neoplasm Social History Social History Social History: Surrogate decision maker: Moni Winston, . Code status: Full code. Smoking status: Never smoker Second hand tobacco smoke exposure: No Alcohol intake: never Substance use: never Substance use type: does not use Living arrangements: with family Additional living arrangements comments: Lives in [place] with his . 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 Spiritual care concerns: No Exam 2 Narrative: GENERAL: Well-developed, well-nourished, and in no acute distress. HEAD: Normocephalic, atraumatic. EYES: PERRLA and EOMI. NECK: Supple. JVD to the angle of the jaw CHEST: Clear to auscultation. No respiratory distress. No wheezes rales or rhonchi HEART: Regular rate and rhythm. No murmur heard. Normal peripheral pulses. ABDOMEN: Soft, nontender, nondistended, normal active bowel sounds. EXTREMITIES: Normal range of motion. Bilateral lower extremity edema 1+ from the ankles to the knees SKIN: Warm, dry, no rash. NEURO: Alert and oriented x3. No focal deficit. Moving all 4 limbs spontaneously PSYCH: Normal mood and affect. Course Course Emergency Course: 17:20 - CBC within normal limits. Chemistries demonstrate creatinine elevation of 1.4 with a baseline of 1. AST/ ALT slightly elevated 42/81 respectively. Troponin within normal limits at 12. BNP within normal limits at 20. Chest x- ray not concerning for acute cardiopulmonary process. EKG demonstrates Q-waves in lead 2 and aVF after but is otherwise unchanged compared to previous EKG. Bedside cardiac ultrasound by me technically difficult. Apical 4 chamber view is not concerning for pericardial effusion, or right heart strain. EPSS appears to be normal. There are no noted B-lines. Left lower extremity ultrasound not concerning for DVT. Will discharge with recommendation for compression stockings and a short course of oral Lasix. I advised the patient follow-up with his primary care doctor in 3 days for repeat creatinine testing. I discussed the findings and recommendations with The patient. Discussed return and emergency precautions including signs/symptoms of ACS and respiratory distress. The patient voiced understanding and agreement with the plan. All questions answered to his satisfaction. Vital Signs Vital signs: Vital Signs Temperature 97.1 F L 06/21/24 15:53 Pulse Rate 83 06/21/24 15:53 Respiratory Rate 20 06/21/24 15:53 Blood Pressure 163/95 H 06/21/24 15:53 Pulse Oximetry 96 06/21/24 15:53 Oxygen Delivery Room Air 06/21/24 15:53 Temperature 98.3 F 06/21/24 17:41 Pulse Rate 77 06/21/24 17:41 Respiratory Rate 20 06/21/24 17:41 Blood Pressure 144/76 H 06/21/24 17:41 Pulse Oximetry 95 06/21/24 17:41 Oxygen Delivery Room Air 06/21/24 17:41 MDM - SOB/Dyspnea MDM Narrative Medical decision making narrative: plan: Imaging, EKG, troponin, labs, reassess Differential Diagnosis Differential diagnosis: Likely congestive heart failure, community acquired pneumonia and other ( dependent edema, new onset CHF, ACS, pneumothorax, DVT, anemia, renal failure, metabolic abnormality, other) Lab Data 06/21/24 16:24 06/21/24 16:24 Labs: Lab Results 06/21/24 Range/Units 16:24 WBC 8.0 (4.8-10.8) K/mm3 RBC 5.03 (4.70-6.10) M/mm3 Hgb 14.3 (12.4-15.3) g/dL Hct 44.4 (37.0-46.0) % MCV 88.3 (78.0-102.0) fL MCH 28.4 (27.0-31.0) pg MCHC 32.2 (32-36) g/dL RDW 14.7 H (11.6-14.4) % Plt Count 185 (150-420) K/mm3 MPV 9.9 (8.7-11.0) fl Immature Gran % (Auto) 0.6 H (0.0-0.0) % Neut % (Auto) 47.5 L (50.0-70.0) % Lymph % (Auto) 36.8 (18.0-42.0) % Shackelford % (Auto) 10.7 (2.0-11.0) % Eos % (Auto) 3.4 (1.0-6.0) % Baso % (Auto) 1.0 (0.0-1.0) % Lymph # (Auto) 2.93 (1.10-4.50) K/mm3 Shackelford # (Auto) 0.85 (0.10-0.90) K/mm3 Eos # (Auto) 0.27 (0.02-0.50) K/mm3 Baso # (Auto) 0.08 (0.00-0.10) K/mm3 Abs Immat Gran (auto) 0.05 H (0.00-0.00) K/mm3 Absolute Neuts (auto) 3.78 (1.70-7.20) K/mm3 Absolute Nucleated RBC 0.00 (0.00-0.00) K/mm3 Nucleated RBC % 0.0 (0-0.0) % D-Dimer 0.42 (0.19-0.50) mg/L Sodium 144 (136-145) mmol/L Potassium 4.4 (3.5-5.1) mmol/L Chloride 107 (98-108) mmol/L Carbon Dioxide 28 (21-32) mmol/L Anion Gap 9 (4-12) mmol/L BUN 14 (7-18) mg/dL Creatinine 1.40 H (0.70-1.30) mg/dL Estim Creat Clear Calc 66 ml/min Estimated GFR 51 L (59 - ) Glucose 78 (70-99) mg/dL Calculated Osmolality 297 H (285-295) mOsm/kg Calcium 8.9 (8.5-10.1) mg/dL Magnesium 1.9 (1.8-2.4) mg/dL Total Bilirubin 0.5 (0.00-1.00) mg/dL AST 42 H (15-37) U/L ALT 81 H (16-63) U/L Alkaline Phosphatase 91 (46-116) U/L Troponin I 12.1 (0.00-60.4) ng/L NT-Pro-B Natriuret Pep 20 (0-125) pg/mL Total Protein 7.4 (6.4-8.2) g/dL Albumin 3.9 (3.4-5.0) g/dL ECG Data EKG #1: Attestation: I personally reviewed and interpreted this ECG as follows: ECG completion date: 06/21/24 ECG completion time: 16:24 Prior ECG tracings: not available for review Interpretation: Sinus rhythm, rate 76, right axis deviation, right bundle-branch block, no ST segment elevations or T-wave inversions concerning for ischemia, Q-waves noted in lead 2 and AVF. Prolonged QRS of 145 with otherwise normal intervals and QTC of 421. Compared to Cardiology interpretation of EKG done in December 2020, Q- waves are new. Discharge Plan Discharge Clinical Impression: Lower extremity edema, Creatinine elevation Patient Disposition: Home, Self-Care Condition: Stable Instructions: Antibiotic Form, Leg Edema (ED) Additional Instructions: You were seen in the emergency department. your labs and EKG are not concerning for injury to the heart it. Chest x-ray was not concerning for fluid in the lungs. your chemistries showed a elevation in your creatinine, from your normal ( 1.4) which is slightly above our normal range of 1.3. I suspect your swelling is related to dependent edema. I recommend Lasix, compression stockings and follow-up with your primary care doctor in 3 days. If you develop Chest pain, shortness of breath, loss of consciousness, or if you have other emergent concerns for life, limb, or eyesight, return to the emergency department. Patient Language: Divehi Prescriptions: New furosemide 20 mg tablet 20 mg PO DAILY Qty: 4 0RF No Action sennosides-docusate sodium [Senna with Docusate Sodium] 8.6-50 mg Tablet 1 tab-cap PO BID diphenhydramine HCl [Benadryl] 25 mg capsule 25 mg PO HS aspirin [Adult Low Dose Aspirin] 81 mg tablet,delayed release (DR/EC) 81 mg PO DAILY Complete Men 50 Plus 300-600-300 mcg tablet 1 tablet PO DAILY Fish Oil 100-160-1,000 mg capsule 1 cap PO DAILY acetaminophen 500 mg capsule 500 mg PO Q6H PRN (Reason: fever or pain) Qty: 30 0RF ibuprofen 800 mg tablet 800 mg PO TID PRN (Reason: pain) Qty: 60 1RF allopurinol 300 mg tablet 300 mg PO DAILY Qty: 90 2RF omeprazole 40 mg capsule,delayed release(DR/EC) 40 mg PO DAILY Qty: 90 2RF losartan 50 mg tablet 50 mg PO DAILY Qty: 30 5RF finasteride [Proscar] 5 mg tablet 5 mg PO QAM Qty: 90 2RF sildenafil [Viagra] 50 mg tablet 50 mg PO PRN Qty: 10 10RF Follow-up/Referrals: Jenny Reyes MD [Primary Care Provider] - 3 Days (For repeat creatinine (kidney function test).) Time of Disposition: 17:30
[2024-06-21 16:30] LABS: Basophils Absolute Auto 0.08 K/mm3 (0.00-0.10); Eosinophils Absolute Auto 0.27 K/mm3 (0.02-0.50); Eosinophils Percent Auto 3.4 % (1.0-6.0); Hematocrit 44.4 % (37.0-46.0); Hemoglobin 14.3 g/dL (12.4-15.3); Immature Granulocyte Absolute 0.05 K/mm3 (0.00-0.00); Immature Granulocyte Percent A 0.6 % (0.0-0.0); Lymphocytes Absolute Auto 2.93 K/mm3 (1.10-4.50); Lymphocytes Percent Auto 36.8 % (18.0-42.0); Mean Corpuscular HGB Conc 32.2 g/dL (32-36); Mean Corpuscular Hemoglobin 28.4 pg (27.0-31.0); Mean Corpuscular Volume 88.3 fL (78.0-102.0); Mean Platelet Volume 9.9 fl (8.7-11.0); Monocytes Absolute Auto 0.85 K/mm3 (0.10-0.90); Monocytes Percent Auto 10.7 % (2.0-11.0); Neutrophils Absolute Auto 3.78 K/mm3 (1.70-7.20); Neutrophils Percent Auto 47.5 % (50.0-70.0); Platelet Count Result 185 K/mm3 (150-420); Red Blood Count 5.03 M/mm3 (4.70-6.10); Red Cell Distribution Width 14.7 % (11.6-14.4)
--- OUTSIDE RECORDS SUMMARY | 2024-06-21 16:36 | XMS_ITS | CONTINUITY OF CARE DOCUMENT ---
Author Name erikjemmachris Address Unknown Organization [facility] Address [address] [place] [address] Phone [phone] Care Team Providers Care Mesmerist Name Role Phone Alden GARCIA, Pati Unavailable [phone] RAMIN CORDERO MD Unavailable [phone] RAMIN CORDERO MD Unavailable [phone] INSURANCE PROVIDERS Payer name Policy type / Coverage type [place] red democrat ID UHC MEDICARE COMPLETE HMO Other [id number]
--- OUTSIDE RECORDS SUMMARY | 2024-06-21 16:36 | XMS_ITS | Clinical Summary ---
Author Organization [facility] [employer] Address [address] [place] [address] Care Team Providers Care Supervisor Research [employer]el Name Role Phone Unavailable Primary Care Provider Unavailabl e Source Comments [facility],non-owned Affiliates and Associated Physician Practices is amultiple site organization consisting of ambulatory clinics and hospital sitesin [place], [place], [place] and [place]. This disclosure is being madepursuant to the Care Everywhere program and may not contain all information available regarding this patient. Last updated 17.[facility] [employer] Social History Tobacco Use Types Packs/Day Years [...]
--- OUTSIDE RECORDS SUMMARY | 2024-06-21 16:36 | XMS_ITS | Referral Summary ---
Author Organization [facility] Address [address] [place] [place] [address] Care Team Providers Care Boiler House Mechanic Name Role Phone Unavailable Primary Care Provider Unavailabl e Source Comments [facility],non-[facility] Affiliates and Associated Physician Practices is amultiple site organization consisting of ambulatory clinics and hospital sitesin [place], [place], [place]. This disclosure is being madepursuant to the Care Everywhere program and may not contain all information available regarding this patient. Last updated 17.[facility] [employer] Social History Tobacco Use Types Packs/Day Years Used Date Smoking Tobacco: Never Assessed Sex and Gender Information Value Date Recorded Sex Assigned at Not on file Gender Identity Not on file Sexual Orientation Not on file Plan of Treatment Not on file
--- OUTSIDE RECORDS SUMMARY | 2024-06-21 16:36 | XMS_ITS | Patient Health Summary ---
Author Organization [facility] [employer] Address [address] [place] [address] Care Team Providers Care Corporate Trainer Name Role Phone Unavailable Primary Care Provider Unavailabl e Note from [facility],non-owned Affiliates and Associated Physician Practices is amultiple site organization consisting of ambulatory clinics and hospital sitesin [place], [place], [place] and [place]. This disclosure is being madepursuant to the Care Everywhere program and may not contain all information available regarding this patient. Last updated 17.[facility] [employer] Social History Tobacco Use Types Packs/Day Years Used Date Smoking Tobacco: Never Assessed Sex and Gender Information Value Date Recorded Sex Assigned at Not on file Gender Identity Not on file Sexual Orientation Not on file
--- OUTSIDE RECORDS SUMMARY | 2024-06-21 16:36 | XMS_ITS | Referral Summary ---
Author Organization [facility] [address] Address [address] [place] [address] Care Team Providers Care Outfitter Cabin Name Role Phone Jenny Reyes MD Primary Care Provider [phone] Allergies No known active allergies Medications acetaminophen [...] (06/19/2018): Added automatically from request for surgery [id number] Mass of breast 11/12/2012 Overview (07/15/2016): Left breast lump Social History Tobacco Use Types Packs/Day Years Used Date Smoking Tobacco: Never Smokeless Tobacco: Former Alcohol Use Standard Drinks/Week Comments Yes 0 (1 standard drink = 0.6 oz pur e alcohol) 5-6 beers per year Sex and Gender Information Value Date Recorded Sex Assigned at Not on file 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 Gender Identity Not on file Sexual Orientation [...] on file Medical Devices Implanted Type Area Medical Device Assembler Device Identifier Shelf Expiration Date Model / Serial / Lot [employer] [id number] Angio-Seal Vip Bondek-Plus 6fr .035in 70cm Hemostatic Latex Free - [id number] Implanted:Qty: 1 on 06/28/2018 by Tim Preston MD at [facility] Right: Groin [employer] 03/09/2019 [id number] / / [id number] [facility] [place] [id number] [facility] HMO REF [place] [id number] Care Teams Outfitter Cabin Relationship Specialty Start Date End Date Jenny Reyes MD PCP - General Family Medicine 06/12/18
--- OUTSIDE RECORDS SUMMARY | 2024-06-21 16:36 | XMS_ITS | Clinical Summary ---
Author Organization [facility] Address [address] [place] [address] Care Team Providers Care Maintenance Engineer Name Role Phone Unavailable Primary Care Provider [...]
--- OUTSIDE RECORDS SUMMARY | 2024-06-21 16:36 | XMS_ITS | Clinical Summary ---
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 Gender Identity Not on file Sexual Orientation [...] on file Medical Devices Implanted Type Area Bird Sitter Device Identifier Shelf Expiration Date Model / Serial / Lot [employer] [id number] Angio-Seal Vip Bondek-Plus 6fr .035in 70cm Hemostatic Latex Free - [id number] Implanted:Qty: 1 on 06/28/2018 by Tim Preston MD at [facility] Right: Groin [employer] 03/09/2019 [id number] / / [id number] Insurance [facility] HMO REF [facility] Address: [place] [address] [facility]F [facility] Address: [address] [address] [place] [id number] Care Teams Form Setter Steel Pan Forms Relationship Specialty Start Date End Date Jenny Reyes MD PCP - General Family Medicine 06/12/18
[2024-06-21 16:47] LABS: Alanine Aminotransferase 81 U/L (16-63); Albumin Level 3.9 g/dL (3.4-5.0); Alkaline Phosphatase 91 U/L (46-116); Anion Gap 9 mmol/L (4-12); Aspartate Amino Transferase 42 U/L (15-37); Bilirubin,Total 0.5 mg/dL (0.00-1.00); Blood Urea Nitrogen 14 mg/dL (7-18); Calcium 8.9 mg/dL (8.5-10.1); Carbon Dioxide 28 mmol/L (21-32); Chloride 107 mmol/L (98-108); Estimated CRCL calculation 66 ml/min; Estimated Glomerular Filt Rate 51; Glucose 78 mg/dL (70-99); Osmolality Calculated 297 mOsm/kg (285-295); Potassium 4.4 mmol/L (3.5-5.1); Sodium 144 mmol/L (136-145); Total Protein 7.4 g/dL (6.4-8.2)
[2024-06-21 16:50] LABS: D Dimer 0.42 mg/L (0.19-0.50)
[2024-06-21 16:53] LABS: Magnesium 1.9 mg/dL (1.8-2.4); NT Pro B Type Natriuretic Pept 20 pg/mL (0-125); Troponin I 12.1 ng/L (0.00-60.4)
--- NOTE | 2024-06-21 17:12 | PC.NURSE ---
dr macias in room with ultrasound, checking brianna lower extremities.
[2024-06-21 17:41] VITALS: BP 144/76; PULSE 77; RESP 20; TEMP 36.8; O2SAT 95
== END 2024-06-21 17:41 | disposition home or self-care (01) ==
PROVIDERS: Emergency Provider Preventive Medicine Aerospace Medicine; PCP Family Medicine
DX: R60.0 Localized edema (principal); R79.89 Other specified abnormal findings of blood chemistry; I12.9 Hypertensive chronic kidney disease with stage 1 through stage 4 chronic kidney disease, or unspecified chronic kidney disease; E11.22 Type 2 diabetes mellitus with diabetic chronic kidney disease; N18.30 Chronic kidney disease, stage 3 unspecified; I25.10 Atherosclerotic heart disease of native coronary artery without angina pectoris
CPT/HCPCS: 36415; 71046; 80053; 83735; 83880; 84484; 85025; 85380; 93005; 99284

== ENCOUNTER 2024-06-27 11:22 | Outpatient (CLI) | payer MEDICARE, SELFPAY ==
--- NOTE | ~2024-06-27 | XR_ITS ---
Supine and upright views of the abdomen Clinical history: Hematuria COMPARISON: 01/20/2022 Findings: Bowel gas pattern is nonspecific. No evidence for obstruction or free air. No abnormal mass lesion or calcification is seen. Stable lumbar spinal fixation hardware. Impression: No definite renal stone is seen. Reviewed, dictated and finalized at [facility]. Impression: No definite renal stone is seen.
--- OUTSIDE RECORDS SUMMARY | 2024-06-27 12:22 | XMS_ITS | CONTINUITY OF CARE DOCUMENT ---
Author Name erikjemmachris Address Unknown Organization [facility] Address [address] [place] [address] Phone [phone] Care Team Providers Care Plumbing Assembler Installer Name Role Phone Alden GARCIA, Pati Unavailable RAMIN CORDERO MD Unavailable [phone] RAMIN CORDERO MD Unavailable [phone] INSURANCE PROVIDERS Payer name Policy type / Coverage type [place] red republican ID UHC MEDICARE COMPLETE HMO Other [id number]
--- OUTSIDE RECORDS SUMMARY | 2024-06-27 12:23 | XMS_ITS | Clinical Summary ---
Author Organization [facility] [employer] Address [address] [place] [address] Care Team Providers Care Tool Marker Name Role Phone Unavailable Primary Care Provider Unavailabl e Source Comments [facility],non-owned Affiliates and Associated Physician Practices is amultiple site organization consisting of ambulatory clinics and hospital sitesin [place], [place], [place] and [place]. This disclosure is being madepursuant to the Care Everywhere program and may not contain all information available regarding this patient. Last updated 17.[facility] [employer] Social History Tobacco Use Types Packs/Day Years [...] FLEX SIG - COLON CA SCREENING 1955 HEPATITIS C SCREENING 12/30/1974 DTAP/TDAP/TD VACCINES (1 - Tdap) 01/04/1976 PNEUMOCOCCAL VACCINE 50+ (1 of 1 - PCV) 2007 ZOSTER VACCINE (1 of 2) 2007 LIPID TESTING 06/20/2023 06/19/2018 COVID-19 VACCINE (1 - 2023-2 5 season) [...]
--- OUTSIDE RECORDS SUMMARY | 2024-06-27 12:23 | XMS_ITS | Referral Summary ---
Author Organization [facility] [address] Address [address] [place] [address] Care Team Providers Care Home Security Professional Name Role Phone Jenny Reyes MD Primary Care Provider [phone] Allergies No known active allergies Medications acetaminophen [...] (06/19/2018): Added automatically from request for surgery [id number] Mass of breast 11/12/2012 Overview (07/15/2016): Left breast lump Social History Tobacco Use Types Packs/Day Years Used Date Smoking Tobacco: Never Smokeless Tobacco: Former Alcohol Use Standard Drinks/Week Comments Yes 0 (1 standard drink = 0.6 oz pur e alcohol) 5-6 beers per year Sex and Gender Information Value Date Recorded Sex Assigned at Not on file 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 Gender Identity Not on file Sexual Orientation [...] on file Medical Devices Implanted Type Area Geothermal Operations Manager Device Identifier Shelf Expiration Date Model / Serial / Lot [employer] [id number] Angio-Seal Vip Bondek-Plus 6fr .035in 70cm Hemostatic Latex Free - [id number] Implanted:Qty: 1 on 06/28/2018 by Tim Preston MD at [facility] Right: Groin [employer] 03/09/2019 [id number] / / [id number] [facility] Address: [address] [address] [place] [id number] [facility] H[facility] REF [facility] Address: [address] [address] [place] [address] Care Teams Home Security Professional Relationship Specialty Start Date End Date Jenny Reyes MD PCP - General Family Medicine 06/12/18
--- OUTSIDE RECORDS SUMMARY | 2024-06-27 12:23 | XMS_ITS | Clinical Summary ---
Author Organization [facility] Address [address] [place] [address] Care Team Providers Care Social Worker School Name Role Phone Unavailable Primary Care Provider [...]
--- OUTSIDE RECORDS SUMMARY | 2024-06-27 12:23 | XMS_ITS | Clinical Summary ---
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 Gender Identity Not on file Sexual [...] on file Medical Devices Implanted Type Area Cot Assembler Device Identifier Shelf Expiration Date Model / Serial / Lot [employer] [id number] Angio-Seal Vip Bondek-Plus 6fr .035in 70cm Hemostatic Latex Free - [id number] Implanted:Qty: 1 on 06/28/2018 by Tim Preston MD at [facility] Right: Groin [employer] 03/09/2019 [id number] / / [id number] Insurance [facility] HMO REF [facility] MEDICARE Address: [place] [address] [facility] HMO REF [facility] MEDICARE Address: [address] [address] [place] [phone] Care Teams Marketing Production Specialist Relationship Specialty Start Date End Date Jenny Reyes MD PCP - General Family Medicine 06/12/18
[2024-06-27 12:42] LABS: Anion Gap 12 mmol/L (4-12); Blood Urea Nitrogen 24 mg/dL (9-20); Calcium 9.4 mg/dL (8.4-10.2); Carbon Dioxide 24 mmol/L (22-30); Chloride 106 mmol/L (98-107); Estimated Glomerular Filt Rate 53; Glucose 93 mg/dL (65-110); Potassium 4.9 mmol/L (3.4-5.0); Sodium 142 mmol/L (137-145)
== END 2024-06-27 11:23 | disposition home or self-care (01) ==
PROVIDERS: PCP Family Medicine; Visit Provider Student in an Organized Health Care Education/Training Program
DX: R10.9 Unspecified abdominal pain (principal); R31.9 Hematuria, unspecified
CPT/HCPCS: 36415; 74018; 80048

== ENCOUNTER 2024-07-18 12:14 | Outpatient (CLI) | payer MEDICARE, SELFPAY ==
--- NOTE | 2024-07-18 | ECHO_ITS ---
Patient Info Name: Gautam Winston Age: 69 years : 1955 Gender: Male Ht: 72 in Wt: 295 lbs BSA: 2.66 m2 HR: 70 bpm BP: 131 / 76 mmHg Heart Rhythm: Sinus Rhythm Technical Quality: Fair Exam Date: 07/18/2024 12:49 PM Exam Location: Echo Lab Patient Status: Outpatient Admit Date: 07/18/2024 Staff Ordering Physician: Augusta Madrid PA-C Commercial Underwriter: Gill Garay RDCS Attending Provider: Augusta Madrid PA-C Referring Physician: Julius HUFF; Exam Type: CA echo doppler color flow Study Info Indications - Localized edema Complete two-dimensional, color flow and Doppler transthoracic echocardiogram is performed. Summary 1. Complete two-dimensional, color flow and Doppler transthoracic echocardiogram is performed. 2. Left ventricular chamber dimension is normal. 3. Left ventricular systolic function is normal, estimated at 65-70%. 4. The left ventricular diastolic function is grade I diastolic dysfunction. 5. E/e' 11 is mildly elevated. 6. Left atrial chamber dimension is mildly enlarged. 7. There is trace mitral valve regurgitation. 8. No pulmonary hypertension, estimated pulmonary arterial systolic pressure is 28 mmHg. 9. There is trace pulmonic regurgitation. Left Ventricle E/e' 11 is mildly elevated. Left ventricular chamber dimension is normal. Left ventricular systolic function is normal, estimated at 65-70%. The left ventricular diastolic function is grade I diastolic dysfunction. Right Ventricle Right ventricular systolic function is normal and with normal TAPSE 2.2 cm. Right ventricular chamber dimension is normal. Left Atria Left atrial chamber dimension is mildly enlarged. Right Atria Right atrial chamber dimension is normal. Aortic Valve The aortic valve is trileaflet. There is no aortic valve stenosis. There is no aortic valve regurgitation. Pulmonic Valve There is trace pulmonic regurgitation. Mitral Valve There is no mitral valve stenosis. There is trace mitral valve regurgitation. Tricuspid Valve There is no tricuspid valve regurgitation. No pulmonary hypertension, estimated pulmonary arterial systolic pressure is 28 mmHg. Pericardium/Pleural There is no pericardial effusion. Inferior Vena Cava Normal inferior vena cava with >50% collapse upon inspiration consistent with normal right atrial pressure, 5 mmHg. Aorta The aortic root size at the sinus of Valsalva is normal. Left Ventricular Outflow Tract Name Value Normal LVOT 2D LVOT Diameter 2.1 cm LVOT Doppler LVOT Peak Gradient 6 mmHg LVOT Mean Gradient 3 mmHg LVOT VTI 22 cm LVOT VTI/AV VTI Ratio 0.9 LVOT Stroke Volume 79 ml LVOT CO 5.2 l/min LVOT CI 1.9 l/min/m2 Pulmonic Valve Name Value Normal RVOT Doppler RVOT Peak Gradient 3 mmHg PV Doppler PV Peak Gradient 3 mmHg PV Regurgitation Doppler GA Peak End Diastolic Velocity 132 cm/s Mitral Valve Name Value Normal MV Doppler MV Decel [place] 271 cm/s2 MV PHT 73 ms MV Area (PHT) 3.0 cm2 4.0-5.0 MV Diastolic Function MV E Peak Velocity 68 cm/s MV A Peak Velocity 92 cm/s MV E/A 0.7 MV Decel Time 252 ms MV Annular TDI MV E/e' (Septal) 13.0 <=8.0 MV E/e' (Lateral) 9.7 <=8.0 MV E/e' (Average) 11.3 Tricuspid Valve Name Value Normal TV Regurgitation Doppler TR Peak Velocity 242 cm/s TR Peak Gradient 20 mmHg Estimated PAP/RSVP RA Pressure 5 mmHg <=5 PA Systolic Pressure 28 mmHg <36 RV Systolic Pressure 28 mmHg <36 Aortic Valve Name Value Normal AV Doppler AV Peak Velocity 123 cm/s AV Peak Gradient 6 mmHg AV Mean Gradient 3 mmHg AV VTI 24 cm AV Area (Cont Eq VTI) 3.3 cm2 >=3.0 AV Area (Cont Eq Zeke) 3.5 cm2 AV Regurgitation 2D LVOT Area 3.6 cm2 Ventricles Name Value Normal LV Dimensions 2D/MM IVS Diastolic Thickness (2D) 1.3 cm 0.6-1.0 LVID Diastole (2D) 4.4 cm 4.2-5.8 LVIW Diastolic Thickness (2D) 1.3 cm 0.6-1.0 LVID Systole (2D) 3.1 cm 2.5-4.0 LVOT Diameter 2.1 cm LV Mass (2D Cubed) 217.53 g 88.00-224.00 LV Mass Index (2D Cubed) 82 g/m2 49-115 Relative Wall Thickness (2D) 0.61 LV Fractional Shortening/Ejection Fraction 2D/MM LV Fractional Shortening (2D) 28 % 25-43 LV EF (2D Teicholz) 55 % 52-72 LV Diastolic Volume (4C MOD) 129 ml LV EF (4C MOD) 71 % LV Diastolic Volume (2C MOD) 148 ml LV EF (2C MOD) 67 % LV Diastolic Volume (BP MOD) 148 ml 62-150 LV Diastolic Volume Index (BP MOD) 56 ml/m2 34-74 LV Systolic Volume (BP MOD) 44 ml 21-61 LV Systolic Volume Index (BP MOD) 16 ml/m2 11-31 LV EF (BP MOD) 70 % 52-72 LV Diastolic Length (4C) 8.2 cm LV Systolic Length (4C) 6.4 cm LV Stroke Volume (4C MOD) 91 ml Atria Name Value Normal LA Dimensions LA Volume (4C A-L) 101 ml LA Volume (BP A-L) 86 ml RA Dimensions RA Area (4C) 20.1 cm2 <=18.0 Report Signatures
--- OUTSIDE RECORDS SUMMARY | 2024-07-18 12:42 | XMS_ITS | Clinical Summary ---
Author Organization [facility] [employer] Address [address] [place] [address] Care Team Providers Care Paper Making Machine Operator Name Role Phone Unavailable Primary Care Provider Unavailabl e Source Comments [facility],non-owned Affiliates and Associated Physician Practices is amultiple site organization consisting of ambulatory clinics and hospital sitesin [place], [place], [place] and [place]. This disclosure is being madepursuant to the Care Everywhere program and may not contain all information available regarding this patient. Last updated 17.[facility] [employer] Social History Tobacco Use Types Packs/Day Years [...] VACCINE (1 - 2023-2 5 season) 2023 DEPRESSION SCREENING 04/10/2024 MEDICARE AWV CALENDAR YEAR 2024 INFLUENZA VACCINE (Season Ended) 2024 Respiratory Syncytial Virus (RSV) Vaccine Pt: [...]
--- OUTSIDE RECORDS SUMMARY | 2024-07-18 12:42 | XMS_ITS | CONTINUITY OF CARE DOCUMENT ---
Author Name erikjemmachris Address Unknown Organization [facility] Address [address] [place] [address] Phone [phone] Care Team Providers Care Nurse Special Name Role Phone Alden GARCIA, Pati Unavailable RAMIN CORDERO MD Unavailable [phone] RAMIN CORDERO MD Unavailable INSURANCE PROVIDERS Payer name Policy type / Coverage type [place] red constitution party ID UHC MEDICARE COMPLETE HMO Other [id number]
--- OUTSIDE RECORDS SUMMARY | 2024-07-18 12:42 | XMS_ITS | Clinical Summary ---
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 HMO REF [facility]IC[facility] Address: [place] [address] [facility] HMO REF [facility] MEDICARE Address: [address] [address] [place] [phone] Care Teams Service Secretary Relationship Specialty Start Date End Date Jenny Reyes MD PCP - General Family Medicine 06/12/18
--- OUTSIDE RECORDS SUMMARY | 2024-07-18 12:42 | XMS_ITS | Referral Summary ---
Author Organization [facility] [address] Address [address] [place] [address] Care Team Providers Care Low Altitude Air Defense Officer Name Role Phone Jenny Reyes MD Primary Care Provider [phone] Allergies No known active allergies Medications acetaminophen [...] (06/19/2018): Added automatically from request for surgery [id number] Mass of breast 11/12/2012 Overview (07/15/2016): Left breast lump Social History Tobacco Use Types Packs/Day Years Used Date Smoking Tobacco: Never Smokeless Tobacco: Former Alcohol Use Standard Drinks/Week Comments Yes 0 (1 standard drink = 0.6 oz pur e alcohol) 5-6 beers per year Sex and Gender Information Value Date Recorded Sex Assigned at Not on file 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 Gender Identity Not on file Sexual Orientation [...] on file Medical Devices Implanted Type Area Rope Tier Device Identifier Shelf Expiration Date Model / Serial / Lot [employer] [id number] Angio-Seal Vip Bondek-Plus 6fr .035in 70cm Hemostatic Latex Free - [id number] Implanted:Qty: 1 on 06/28/2018 by Tim Preston MD at [facility] Right: Groin [employer] 03/09/2019 [id number] / / [id number] [facility] REF [place] [id number] [facility] HMO REF [place] [id number] Care Teams Low Altitude Air Defense Officer Relationship Specialty Start Date End Date Jenny Reyes MD PCP - General Family Medicine 06/12/18
--- OUTSIDE RECORDS SUMMARY | 2024-07-18 12:42 | XMS_ITS | Clinical Summary ---
Author Organization [facility] Address [address] [place] [address] Care Team Providers Care Roaster Helper Name Role Phone Unavailable Primary Care Provider [...] Vaccine ( - 2023-2 5 season) 2023 RSV Immunization or 60+ Years (1 - [...]
== END 2024-07-18 12:15 | disposition home or self-care (01) ==
PROVIDERS: PCP Family Medicine; Visit Provider Student in an Organized Health Care Education/Training Program
DX: R60.0 Localized edema (principal); I25.10 Atherosclerotic heart disease of native coronary artery without angina pectoris; I51.89 Other ill-defined heart diseases
CPT/HCPCS: 93306; C8929

== ENCOUNTER 2024-07-26 10:22 | Outpatient (CLI) | payer MEDICARE, SELFPAY ==
--- NOTE | ~2024-07-26 | CT_ITS ---
CT of the Abdomen and Pelvis: Indication: Hematuria Technique: 2.5 mm axial scans were obtained through the abdomen and pelvis prior to and following in travenous administration of 130 cc of Omnipaque 350. Dose reduction technique was used on this scan b y utilizing automated exposure control and iterative reconstruction technique. The dose-length produc t (DLP) was 2920.55 mGy-cm. COMPARISON: 01/20/2022 Findings: Scans through the lung bases are unremarkable. There is diffuse fatty infiltration of the liver. The spleen, pancreas, gallbladder, adrenals and kid neys are within normal limits. No evidence of aortic aneurysm. No lymphadenopathy. No bowel obstruction or bowel wall thickening. There is no evidence to suggest acute appendicitis. Images through the pelvis were performed. Suspected 6 mm left-sided urinary bladder mass on postcontr ast images (axial image 173). Prostate gland unremarkable. No pelvic mass seen. No ascites. Impression: Probable 6 mm left-sided urinary bladder mass. Cystoscopy advised to confirm or exclude. Diffuse fatty infiltration of liver. Reviewed, dictated and finalized at location . Impression: Probable 6 mm left-sided urinary bladder mass. Cystoscopy advised to confirm or exclude. Diffuse fatty infiltration of liver.
--- OUTSIDE RECORDS SUMMARY | 2024-07-26 10:30 | XMS_ITS | Clinical Summary ---
Author Organization [facility] Address [address] [place] [address] Care Team Providers Care Tactical/Mobile Watch Officer Name Role Phone Unavailable Primary Care Provider [...] Td Vaccines ( 1 - Tdap) 01/04/1976 Pneumococcal Vaccine: 50+ Ye ars (1 of 1 - PCV) 2007 Zoster Vaccines (1 of 2) 2007 COVID-19 Vaccine ( - 2023-2 5 season) [...]
--- OUTSIDE RECORDS SUMMARY | 2024-07-26 10:30 | XMS_ITS | Clinical Summary ---
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 Right: Groin [employer] 03/09/2019 [id number] / / [id number] Insurance [facility] HMO REF [facility] HMO REF [place] [id number] Care Teams Employee Counselor Relationship Specialty Start Date End Date Jenny Reyes MD PCP - General Family Medicine 06/12/18
--- OUTSIDE RECORDS SUMMARY | 2024-07-26 10:30 | XMS_ITS | Referral Summary ---
Author Organization [facility] [address] Address [address] [place] [address] Care Team Providers Care Seed Tester Name Role Phone Jenny Reyes MD Primary Care Provider [phone] Allergies No known active allergies Medications acetaminophen [...] (06/19/2018): Added automatically from request for surgery [id number] Mass of breast 11/12/2012 Overview (07/15/2016): Left breast lump Social History Tobacco Use Types Packs/Day Years Used Date Smoking Tobacco: Never Smokeless Tobacco: Former Alcohol Use Standard Drinks/Week Comments Yes 0 (1 standard drink = 0.6 oz pur e alcohol) 5-6 beers per year Sex and Gender Information Value Date Recorded Sex Assigned at Not on file 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 Gender Identity Not on file Sexual Orientation [...] on file Medical Devices Implanted Type Area Hospice Volunteer Device Identifier Shelf Expiration Date Model / Serial / Lot [employer] [id number] Angio-Seal Vip Bondek-Plus 6fr .035in 70cm Hemostatic Latex Free - [id number] Implanted:Qty: 1 on 06/28/2018 by Tim Preston MD at [facility] Right: Groin [employer] 03/09/2019 [id number] / / [id number] [facility] REF [place] [id number] [facility] HMO REF [place] [id number] Care Teams Seed Tester Relationship Specialty Start Date End Date Jenny Reyes MD PCP - General Family Medicine 06/12/18
--- OUTSIDE RECORDS SUMMARY | 2024-07-26 10:30 | XMS_ITS | CONTINUITY OF CARE DOCUMENT ---
Author Name erikjemmachris Address Unknown Organization [facility] Address [address] [place] [address] Phone [phone] Care Team Providers Care Electrical Controls Engineer Name Role Phone Alden GARCIA, Pati Unavailable [phone] RAMIN CORDERO MD Unavailable [phone] RAMIN CORDERO MD Unavailable [phone] INSURANCE PROVIDERS Payer name Policy type / Coverage type [place] red republican ID UHC MEDICARE COMPLETE HMO Other [id number]
--- OUTSIDE RECORDS SUMMARY | 2024-07-26 10:30 | XMS_ITS | Clinical Summary ---
Author Organization [facility] [employer] Address [address] [place] [address] Care Team Providers Care Senior Buyer Planner Name Role Phone Unavailable Primary Care Provider Unavailabl e Source Comments [facility],non-owned Affiliates and Associated Physician Practices is amultiple site organization consisting of ambulatory clinics and hospital sitesin [place], [place], [place] and [place]. This disclosure is being madepursuant to the Care Everywhere program and may not contain all information available regarding this patient. 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
== END 2024-07-26 10:23 | disposition home or self-care (01) ==
PROVIDERS: PCP Family Medicine; Visit Provider Urology
DX: R31.29 Other microscopic hematuria (principal); K76.0 Fatty (change of) liver, not elsewhere classified
CPT/HCPCS: 74178; Q9967

== ENCOUNTER 2024-09-20 08:02 | Outpatient (CLI) | payer MEDICARE, SELFPAY ==
--- OUTSIDE RECORDS SUMMARY | 2024-09-20 08:08 | XMS_ITS | Referral Summary ---
Author Organization [facility] [address] Address [address] [place] [address] Care Team Providers Care Dealer Card Room Name Role Phone Jenny Reyes MD Primary Care Provider [phone] Allergies No known active allergies Medications acetaminophen [...] (06/19/2018): Added automatically from request for surgery [id number] Mass of breast 11/12/2012 Overview (07/15/2016): Left breast lump Social History Tobacco Use Types Packs/Day Years Used Date Smoking Tobacco: Never Smokeless Tobacco: Former Alcohol Use Standard Drinks/Week Comments Yes 0 (1 standard drink = 0.6 oz pur e alcohol) 5-6 beers per year Sex and Gender Information Value Date Recorded Sex Assigned at Not on file 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 Gender Identity Not on file Sexual [...] A M CDT Height 185.4 cm (6' 1) 06/28/2018 10:18 AM CDT Body Mass Index 34.1 06/28/2018 10:18 AM CDT Plan of Treatment Not on file Medical Devices Implanted Type Area Pulpwood Contractor Device Identifier Shelf Expiration Date Model / Serial / Lot [employer] [id number] Angio-Seal Vip Bondek-Plus 6fr .035in 70cm Hemostatic Latex Free - [id number] Implanted:Qty: 1 on 06/28/2018 by Tim Preston MD at [facility] Right: Groin [employer] 03/09/2019 [id number] / / [id number] [facility] RE[facility] Address: [address] [address] [place] [phone] [facility] H[facility] REF [facility] Address: [address] [address] [place] [address] Care Teams Dealer Card Room Relationship Specialty Start Date End Date Jenny Reyes MD PCP - General Family Medicine 06/12/18
--- OUTSIDE RECORDS SUMMARY | 2024-09-20 08:08 | XMS_ITS | Clinical Summary ---
Author Organization [facility] Address [address] [place] [address] Care Team Providers Care Retort Fireman Name Role Phone Unavailable Primary Care Provider Unavailabl e Source Comments [facility],non-owned Affiliates and Associated Physician Practices is amultiple site organization consisting of ambulatory clinics and hospital sitesin [place], [place], [place] and [place]. This disclosure is being madepursuant to the Care Everywhere program and may not contain all information available regarding this patient. 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
--- OUTSIDE RECORDS SUMMARY | 2024-09-20 08:08 | XMS_ITS | Clinical Summary ---
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 Gender Identity Not on file Sexual Orientation [...] on file Medical Devices Implanted Type Area Assistant Producer Device Identifier Shelf Expiration Date Model / Serial / Lot [employer] [id number] Angio-Seal Vip Bondek-Plus 6fr .035in 70cm Hemostatic Latex Free - [id number] Implanted:Qty: 1 on 06/28/2018 by Tim Preston MD at [facility] Right: Groin [employer] 03/09/2019 [id number] / / [id number] Insurance [facility] H[facility] REF [facility] Address: [place] [address] [facility] HMO REF [facility] Address: [address] [address] [place] [phone] Care Teams Fruit Or Nut Crops Farm Manager Relationship Specialty Start Date End Date Jenny Reyes MD PCP - General Family Medicine 06/12/18
[2024-09-20 08:45] LABS: Prothrombin Time 13.2 Seconds (11.1-14.7)
[2024-09-20 08:46] LABS: Anion Gap 9 mmol/L (4-12); Blood Urea Nitrogen 17 mg/dL (9-20); Calcium 9.5 mg/dL (8.4-10.2); Carbon Dioxide 27 mmol/L (22-30); Chloride 106 mmol/L (98-107); Estimated Glomerular Filt Rate 53; Glucose 115 mg/dL (65-110); Partial Thromboplastin Time 28.2 Seconds (22.3-36.8); Potassium 4.2 mmol/L (3.4-5.0); Sodium 142 mmol/L (137-145)
== END 2024-09-20 08:03 | disposition home or self-care (01) ==
LOC: ANHSURGERY 08:06
PROVIDERS: Anesthesiology; PCP Family Medicine; Visit Provider Urology
DX: I12.9 Hypertensive chronic kidney disease with stage 1 through stage 4 chronic kidney disease, or unspecified chronic kidney disease (principal); N18.30 Chronic kidney disease, stage 3 unspecified
CPT/HCPCS: 36415; 80048; 85610; 85730

== ENCOUNTER 2024-09-26 01:58 | Day surgery (SDC) | payer MEDICARE, SELFPAY ==
--- NOTE | 2024-09-18 14:49 | PC.NURSE ---
Report to the Outpatient Waiting Room, entrance under the green pavilion located off [facility], at time __6:30 AM on date _09/26/24 . Planned Procedure Time: __8:30 AM .? Time changes happen often and if your time is changed the preop area will call you the afternoon before. - You and your visitor will be asked to self-screen and do not enter if you have any COVID symptoms. Please call surgeon if you need to reschedule. - A mask is optional within the hospital at this time. Patients may have clear liquids (water, carbonated beverages, clear teas, apple juice) until 3 hours prior to surgery ( 5:30 AM) with a maximum of 20 ounces. - No food from midnight until time of surgery and no smoking, or chewing tobacco (or any form of nicotine). No chewing gum, candy or mints. - Take only the following medications with a SIP of water on the morning of surgery: _GABAPENTIN, DO NOT STOP ANY OF YOUR OTHER PRESCRIPTION MEDICATIONS PRIOR TO SURGERY EXCEPT THE FOLLOWING Hold all vitamins and supplements for 3 days per anesthesiologist.LAST DOSE 09/22/24 Medications to discontinue per physician __PT STATES HOLD ASPIRIN,FISH OIL AND IBUPROFEN 7 DAYS PRE OP PER DR LIN MAY TAKE TYLENOL IF NEEDED FOR PAIN Date to take last dose____09/18/24 Please no make-up, nail korean, hairspray, perfume, deodorant, or body powder the day of surgery.? No jewelry (including any body piercings) or valuables the day of surgery, leave them at home.? Please take a shower or bath the night before, or the morning of, surgery with an antibacterial soap.? Wear comfortable, loose fitting clothing.? Children are encouraged to wear pajamas. - Jewelry must be removed prior to entering the operating room.? Rings and piercings that are not removed may be cut off. - The hospital will not accept responsibility for valuables.? - Please leave all valuables, including medications, at home the day of surgery. If you are going home after surgery, a licensed combine driver must drive you home.? - NO public transportation without another adult if you receive anesthesia. - We recommend that an adult stay with you for 24 hours following discharge. - We also recommend that you do not drive, make important decision, drink alcoholic beverages, or take any drugs that were not prescribed by your health care provider for at least 24 hours after your discharge time. For Pediatric surgeries, we recommend two adults accompany the child home. Follow any additional instructions given to you from your surgeon. Telephone instructions given to _PATIENT and asked if any additional questions and then verbalized understanding. Patient advised to call surgeon office or pre surgery nurse liaison [phone] if any additional questions.
[2024-09-18 15:06] VITALS: BMI 39.3
[2024-09-26] VITALS (10 sets, daily range): BP systolic 118–180; BP diastolic 54–83; PULSE 68–82; RESP 12–18; TEMP 36.4–36.7; O2SAT 94–100
--- OUTSIDE RECORDS SUMMARY | 2024-09-26 02:01 | XMS_ITS | Clinical Summary ---
Author Organization [facility] [address] Address [address] [place] [address] Care Team Providers Care Mold Yard Worker Name Role Phone Jenny Ryees MD Primary Care Provider [phone] Allergies No known active allergies Medications acetaminophen [...] Lipid screening 06/19/2018 Abnormal stress test 06/19/2018 EKE on CPAP 06/19/2018 Essential hypertension 06/19/2018 Family history of coronary artery disease 2018 RBBB 06/19/2018 Nuñez's esophagus with dysplasia 06/19/2018 Hypertension associated with diabetes 06/19/2018 Abnormal cardiovascular stress test 06/19/2018 Overview (06/19/2018): Added automatically from request for surgery [id number] Mass of breast 11/12/2012 Overview (07/15/2016): Left [...] file 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 Gender Identity Not on file Sexual Orientation [...] on file Medical Devices Implanted Type Area Part Time Flexible Clerk Device Identifier Shelf Expiration Date Model / Serial / Lot [employer] [id number] Angio-Seal Vip Bondek-Plus 6fr .035in 70cm Hemostatic Latex Free - [id number] Implanted:Qty: 1 on 06/28/2018 by Tim Preston MD at [facility] Right: Groin [employer] 03/09/2019 [id number] / / [id number] Insurance [facility] REF [facility] HMO REF [place] [id number] Care Teams Mold Yard Worker Relationship Specialty Start Date End Date Jenny Reyes MD PCP - General Family Medicine 06/12/18
--- OUTSIDE RECORDS SUMMARY | 2024-09-26 02:01 | XMS_ITS | CONTINUITY OF CARE DOCUMENT ---
Author Name erikjemmachris Address Unknown Organization [facility] Address [address] [place] [address] Phone [phone] Care Team Providers Care Hat Maker Name Role Phone Alden GARCIA, Pati Unavailable RAMIN CORDERO MD Unavailable [phone] RAMIN CORDERO MD Unavailable INSURANCE PROVIDERS Payer name Policy type / Coverage type [place] red republican ID UHC MEDICARE COMPLETE HMO Other [id number]
--- OUTSIDE RECORDS SUMMARY | 2024-09-26 02:01 | XMS_ITS | Clinical Summary ---
Author Organization [facility] Address [address] [place] [address] Care Team Providers Care Nursing Program Chair Name Role Phone Unavailable Primary Care Provider [...]
--- OUTSIDE RECORDS SUMMARY | 2024-09-26 02:01 | XMS_ITS | Clinical Summary ---
Author Organization [facility] Address [address] [place] [address] Care Team Providers Care Sergeant Of Officers Name Role Phone Unavailable Primary Care Provider Unavailabl e Source Comments [facility],non-owned Affiliates and Associated Physician Practices is amultiple site organization consisting of ambulatory clinics and hospital sitesin [place], [place], [place] and [place]. This disclosure is being madepursuant to the Care Everywhere program and may not contain all information available regarding this patient. 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
--- OUTSIDE RECORDS SUMMARY | 2024-09-26 02:01 | XMS_ITS | Referral Summary ---
Author Organization [facility] [address] Address [address] [place] [address] Care Team Providers Care Senior Front End Engineer Name Role Phone Jenny Reyes MD Primary Care Provider [phone] Allergies No known active allergies Medications acetaminophen [...] (06/19/2018): Added automatically from request for surgery [id number] Mass of breast 11/12/2012 Overview (07/15/2016): Left breast lump Social History Tobacco Use Types Packs/Day Years Used Date Smoking Tobacco: Never Smokeless Tobacco: Former Alcohol Use Standard Drinks/Week Comments Yes 0 (1 standard drink = 0.6 oz pur e alcohol) 5-6 beers per year Sex and Gender Information Value Date Recorded Sex Assigned at Not on file 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 MEDIC[facility] Address: [address] [address] [place] [phone] [facility] H[facility] REF [facility] MEDICARE Address: [address] [address] [place] [address] Care Teams Senior Front End Engineer Relationship Specialty Start Date End Date Jenny Reyes MD PCP - General Family Medicine 06/12/18
--- NOTE | 2024-09-26 06:28 | WPDHPUPDATE1 ---
History and Physical Update Update Date/Time: 09/26/24 06:28 History and Physical has been reviewed, including an updated exam of the patient. There are NO changes in the patient's condition. Risks, benefits, and alternatives have been discussed and questions answered. Patient agrees to proceed with procedure.
[2024-09-26] MEDS: LACTATED RINGERS 1,000 ML 30 ML IV CONT (07:05)
--- NOTE | 2024-09-26 07:48 | WPDANESEPPF ---
Anes - Initial Pre Proc Eval Procedure: Operation Date: 09/26/24 08:30 Proposed Procedures p Trans Urethral Resection Bladder Tumor with Gemcitabine Instillation - Kaushal Galaviz MD Date/Time: 09/26/24 07:48 Surgeon: Kaushal Galaviz MD Pre Op Diagnosis: bladder CA Patient Data Age: 69 Gender: M Height: 1.83 m Weight: 137 kg Last Vital Signs Temp 36.7 C 09/26/24 06:35 Pulse 78 09/26/24 06:35 Resp 18 09/26/24 06:35 BP 180/74 H 09/26/24 06:35 Pulse Ox 98 09/26/24 06:35 O2 Del Method Room Air 09/26/24 06:35 Allergies Allergy/AdvReac Type Severity Reaction Status Date / Time No Known Allergies Allergy Verified 09/26/24 07:09 Home Medications ?Medication ?Instructions ?Recorded ?Confirmed ?Type aspirin 81 mg tablet,delayed 81 mg PO DAILY 05/19/19 09/26/24 History release (Adult Low Dose Aspirin) [id number]-tmsxu 300 mcg-K 60 1 tablet PO DAILY 06/25/20 09/26/24 History mcg-lycop 600 mcg-lutein 300 mcg tablet (Complete Men 50 Plus) omega 5-gpj-idt-fish oil 100 1 cap PO DAILY 06/25/20 09/26/24 History mg-160 mg-1,000 mg capsule (Fish Oil) sennosides 8.6 mg-docusate sodium 2 tab-cap PO HS 01/07/21 09/26/24 History 50 mg tablet (Senna with Docusate Sodium) acetaminophen 500 mg capsule 500 mg PO Q6H PRN fever or pain 10/07/21 09/18/24 Rx #30 caps ibuprofen 800 mg tablet 800 mg PO TID PRN pain #60 tabs 01/15/24 09/18/24 Rx omeprazole 40 mg capsule,delayed 40 mg PO DAILY #90 caps 03/01/24 09/26/24 Rx release finasteride 5 mg tablet (Proscar) 5 mg PO QAM #90 tabs 04/01/24 09/26/24 Rx losartan 50 mg tablet 50 mg PO DAILY #30 tabs 04/01/24 09/26/24 Rx sildenafil 50 mg tablet (Viagra) 50 mg PO PRN Erectile Dysfunction 04/26/24 09/18/24 Rx #10 tabs diphenhydramine HCl 25 mg capsule 25 mg PO HS 06/21/24 09/26/24 History (Benadryl) ciprofloxacin HCl 500 mg tablet 500 mg PO Q12H #28 tabs 06/27/24 09/18/24 Rx allopurinol 300 mg tablet 300 mg PO DAILY #90 tabs 08/21/24 09/26/24 Rx furosemide 20 mg tablet 20 mg PO DAILY #90 tabs 08/23/24 09/26/24 Rx gabapentin 100 mg capsule 100 mg PO TID #90 caps 09/17/24 09/26/24 Rx Patient hx anesthesia problems: post op nausea/vomiting Family hx anesthesia problems: none Results Review: All pre-operative results and documents have been reviewed as part of the pre-operative evaluation. [facility] Past Medical History Medical History Stress RLQ abdominal pain Other chronic pain Other chest pain Narcotic dependence Hematochezia H/O diabetes mellitus Dermoid cyst of neck Coronary artery disease involving torres martinez coronary artery Class 3 severe obesity due to excess calories without serious comorbidity in adult Body mass index (BMI) of 40.0-44.9 in adult Kidney stones Pre-diabetes Hemoglobin A1c was 5.8% on 08/13/2020. Chronic kidney disease, stage 3 Average GFR is in the upper 40s to low 50s. Baseline creatinine ranges between 1.2 and 1.50. 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 Nuñez's esophagus determined by biopsy Cervical radiculopathy Chronic midline low back pain Current mild episode of major depressive disorder without prior episode Erectile dysfunction Essential hypertension Surgical History Surgical History History of lumbar surgery History of cervical spinal surgery History of esophagogastroduodenoscopy History of cardiac catheterization (05/20/11) Essentially normal coronary arteries with buried minor intimal irregularities in the LAD. Family History Family History Father Family history of premature coronary heart disease, Onset Age: 58 Hypertension Carcinoma of colon Family history of Alzheimer's disease Mother Diabetes mellitus Family history of chronic obstructive pulmonary disease Hypertension Other Cerebrovascular accident Family history of cardiovascular disease Family history of malignant neoplasm Social History Social History Social History: Surrogate decision maker: Moni Winston, . Code status: Full code. Smoking status: Never smoker Second hand tobacco smoke exposure: No Alcohol intake: never Substance use: never Substance use type: does not use Living arrangements: with family Additional living arrangements comments: Lives in [place] with his . 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 Spiritual care concerns: No Anes - Eval Final PreProcedure Day of Procedure 09/26/24 07:48 Patient weight: morbidly obese Heart: regular rate and rhythm Lungs: clear to auscultation Airway: Mallampati scale class II Neurological: alert and oriented Last oral intake: >/= 8 hours ASA classification: III Emergent: no Anesthetic plan: proceed Anesthesia type and monitoring: general LMA and standard monitoring Results Review: All pre-operative results and documents have been reviewed as part of the pre-operative evaluation. Informed Consent: The patient's anesthetic plan and its attendant risks and benefits were discussed with the patient/family/POA. Questions were solicited and answers provided to the satisfaction of the patient/family/POA.
[2024-09-26] MEDS: SCOPOLAMINE 1 MG PATCH 1 PATCH TRANSDERM (08:06)
[2024-09-26] MEDS: ceFAZolin 3 GM/D5W 100 ML 100 ML IVPB (08:34)
[2024-09-26] MEDS: LIDOCAINE 2% GEL UROJET 10 ML PKG MUCOUS MEM (08:45)
--- NOTE | 2024-09-26 08:47 | S_PTH ---
PATIENT: Gautam Winston LOC: [facility] U#:[id number] AGE/SX: 69/M ROOM: RE09/26/[address]: Kaushal Galaviz MD : 1955 BED: DIS: 09/26/2024 SPEC #: [id number] RECD: 09/26/24 10:53 STATUS: SOUJaden REQ #: [id number] MILADY: 09/26/24 08:[address]: Kaushal Galaviz DEPT: [facility] Surgical RECD BY: Barbie Singh ENTERED: 09/26/24 10:53 SP TYPE: Surgical OTHR DR: Jenny ReyesMD Tissues: A - Bladder TURBT Procedures: Hematoxylin and Eosin Stain Gross and Microscopic Level 5
[2024-09-26] MEDS: SODIUM CHLORIDE 0.9% IV 23.7 ML, GEMCITABINE HCL 1,000 MG BLADDER ×2 (09:05)
[2024-09-26] MEDS: fentaNYL CITRATE INJ (*CRX) 100 MCG/2 ML VIAL 25 MCG IV PUSH ×4 (09:13→09:35)
--- NOTE | 2024-09-26 09:17 | W.PM.PROC2 ---
Procedure Note - Detailed Date of Procedure 09/26/24 Pre-op Diagnosis Bladder CA Post-op Diagnosis Same Procedure Performed TURBT (small, 2cm) Surgeon Kaushal Galaviz MD Anesthesia General Description of Procedure The patient was brought to the operative suite where he is prepped and draped in a routine sterile fashion while in the dorsal lithotomy position. This is done after the uneventful administration of systemic sedation. 2% Xylocaine jelly is introduced intraurethrally and allowed to stand for an appropriate period of time. A 24F resectoscope sheath was placed in the bladder and the bladder is circumferentially inspected carefully. 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 This area is resected in its entirety with an attempt made to include detrusor muscle for pathological evaluation of invasion. The base and periphery of this resected side is cauterized with a loop electrode. The bladder is emptied and the resectoscope was removed. The patient is taken to the recovery room having tolerated this procedure well. Drains No Packing No Pathology Yes
--- NOTE | 2024-09-26 09:20 | W.PM.PROC2 ---
Procedure Note - Detailed Date of Procedure 09/26/24 Pre-op Diagnosis Bladder CA Post-op Diagnosis Same Procedure Performed Gemcitabine Surgeon Kaushal Galaviz MD Anesthesia General Description of Procedure With the patient in the supine position, a 16F Moran catheter is placed using sterile technique. Using a protective facemask, gown and double layer of gloves Gemcitabine 2gm in 100cc saline is administered through the catheter/into the bladder. The catheter is then plugged. Patient was instructed to lie supine x20min, then to roll both the left and right x20 min. each. Total dwell time will be 60 min., after which the bladder will be drained and catheter removed. Drains No Packing No Pathology Yes Complications No immediate complications Condition Stable Disposition PACU
== END 2024-09-26 11:11 | disposition home or self-care (01) ==
PROVIDERS: PCP Family Medicine; Visit Provider Urology
PROC: 0TBB8ZZ Excision of Bladder, Via Natural or Artificial Opening Endoscopic (ICD-10-PCS; CPT 52235; principal; 2024-09-26 08:30)
DX: C67.2 Malignant neoplasm of lateral wall of bladder (principal); R31.0 Gross hematuria; N40.0 Benign prostatic hyperplasia without lower urinary tract symptoms; I10 Essential (primary) hypertension; M10.9 Gout, unspecified; K21.9 Gastro-esophageal reflux disease without esophagitis; R74.01 Elevation of levels of liver transaminase levels; G47.33 Obstructive sleep apnea (adult) (pediatric)
CPT/HCPCS: 52235; 51720; 88307; A9270; J0690; J2003; J2704; J3010; J7120; J9201

== ENCOUNTER 2024-09-29 19:44 | Observation (INO) | payer MEDICARE, SELFPAY ==
[2024-09-29] VITALS (7 sets, daily range): BP systolic 167–199; BP diastolic 78–88; PULSE 75–92; RESP 12–24; TEMP 36.6; O2SAT 97–99
--- NOTE | ~2024-09-29 | CT_ITS ---
CT abdomen pelvis wo con Ordering provider: Kaushal Galaviz MD History: 69 years Male with . Hematuria, clot retention . Comparison: None. Technique: CT abdomen and pelvis without IV and without oral contrast. Automated exposure control and iterative reconstruction technique were employed. The dose-length product was 832.81 mGy-cm. Findings: VISUALIZED LOWER CHEST: Normal. UPPER ABDOMINAL ORGANS: Liver: Fat infiltration. Hepatomegaly. Gallbladder: Normal. Spleen: Normal. Stomach/duodenum: Small sliding hiatus hernia. Pancreas: Normal. Adrenals: Normal. Kidneys: Normal. PELVIC ORGANS: Moran's catheter is seen in the bladder. Hyperdense material is seen which is suggesti ve of hematoma. Cystoscopy is advised. There is also seen in the urinary bladder most likely post cat heterization. BOWEL AND MESENTERY: Colon: No evidence of diverticulitis. No evidence of appendicitis.. 0 Small Bowel: Normal. No obstruction. Peritoneum/mesentery: No free air or free fluid. No mesenteric lymphadenopathy. RETROPERITONEUM: Mild atheromatous disease of the abdominal aorta. No retroperitoneal lymphadenopat hy. MUSCULOSKELETAL: Superficial soft tissues: The superficial soft tissues are normal. Bones: Age appropriate degenerative changes of the spine. Postoperative changes seen in the mid lumba r area. Pubic symphysitis. Bilateral hip osteoarthritic changes. IMPRESSION: 1. Large hematoma seen in the bladder. Cystoscopy is advised. 2. Fat infiltration of the liver with hepatomegaly. 3. No evidence of appendicitis, diverticulitis or intestinal obstruction. 4. Small sliding hiatus hernia. Reviewed, dictated and finalized at location A.
[2024-09-29 22:48] LABS: Basophils Absolute Auto 0.1 K/mm3 (0.0-0.1); Basophils Percent Auto 0.9 % (0.2-1.2); Eosinophils Absolute Auto 0.3 K/mm3 (0-0.3); Eosinophils Percent Auto 3.2 % (0-4.4); Hematocrit 44.2 % (42.0-52.0); Hemoglobin 14.5 g/dL (14.0-18.0); Immature Granulocyte Absolute 0.09 K/mm3 (0.00-0.031); Lymphocytes Absolute Auto 3.34 K/mm3 (0.9-3.2); Mean Corpuscular HGB Conc 32.8 g/dl (32-36); Mean Corpuscular Hemoglobin 28.5 pg (26-34); Mean Platelet Volume 9.8 fl (7.4-10.4); Monocytes Absolute Auto 0.6 K/mm3 (0.1-0.6); Monocytes Percent Auto 7.3 % (2.6-8.5); Neutrophils Absolute Auto 4.4 K/mm3 (1.3-6.7); Neutrophils Percent Auto 49.6 % (45.5-73.1); Nucleated Red Blood Cells Perc 0.2 % (0.0-0.2); Platelet Count Result 186 k/mm3 (150-375); Red Blood Count 5.08 M/mm3 (4.6-6.20); Red Cell Distribution Width 14.7 % (11.5-14.5); White Blood Count 8.8 K/mm3 (4.5-10.0)
--- NOTE | 2024-09-29 23:02 | ED.MALEGU ---
HPI - Male Genitourinary General Chief complaint: Urogenital-Male Stated complaint: post op complications, unable to pee Time Seen by Provider: 09/29/24 22:27 Source: patient Mode of arrival: ambulatory Limitations: no limitations History of Present Illness HPI Narrative: This is a 69-year-old male that presents to the emergency department for bloody urine. Reports he had a transurethral resection of bladder tumor 3 days ago. He had been doing well postop. He had minor bleeding initially which had cleared up. Tonight around 5:00 p.m. he tried to urinate and was having great difficulty. He had to use force and then had a large amount of blood and blood clots come out. Since then he has only been able to get out blood and blood clots. He is not on blood thinners. Denies fever, vomiting. Related Data Home Medications ?Medication ?Instructions ?Recorded ?Confirmed ?Last Taken ?Type aspirin 81 mg tablet,delayed 81 mg PO DAILY 05/19/19 09/26/24 09/19/24 History release (Adult Low Dose Aspirin) [id number] 300 mcg-K 60 1 tablet PO DAILY 06/25/20 09/26/24 09/22/24 History mcg-lycop 600 mcg-lutein 300 mcg tablet (Complete Men 50 Plus) omega 2-qow-ctl-fish oil 100 1 cap PO DAILY 06/25/20 09/26/24 09/22/24 History mg-160 mg-1,000 mg capsule (Fish Oil) sennosides 8.6 mg-docusate sodium 2 tab-cap PO HS 01/07/21 09/26/24 09/25/24 History 50 mg tablet (Senna with Docusate Sodium) diphenhydramine HCl 25 mg capsule 25 mg PO HS 06/21/24 09/26/24 09/25/24 History (Benadryl) Allergies Allergy/AdvReac Type Severity Reaction Status Date / Time No Known Allergies Allergy Verified 09/26/24 07:09 Review of Systems Review of Systems: All systems reviewed & are unremarkable except as noted in HPI and below PMFSH Past Medical History Medical History Stress RLQ abdominal pain Other chronic pain Other chest pain Narcotic dependence Hematochezia H/O diabetes mellitus Dermoid cyst of neck Coronary artery disease involving [place] coronary artery Class 3 severe obesity due to excess calories without serious comorbidity in adult Body mass index (BMI) of 40.0-44.9 in adult Kidney stones Pre-diabetes Hemoglobin A1c was 5.8% on 08/13/2020. Chronic kidney disease, stage 3 Average GFR is in the upper 40s to low 50s. Baseline creatinine ranges between 1.2 and 1.50. Gout Obstructive sleep apnea Atherosclerotic heart disease of [place] coronary artery without angina pectoris Cardiac catheterization in May 2011 showed essentially normal coronary arteries with very minor intimal irregularities in the left anterior descending artery. Nuñez's esophagus determined by biopsy Cervical radiculopathy Chronic midline low back pain Current mild episode of major depressive disorder without prior episode Erectile dysfunction Essential hypertension Surgical History Surgical History History of lumbar surgery History of cervical spinal surgery History of esophagogastroduodenoscopy History of cardiac catheterization (05/20/11) Essentially normal coronary arteries with buried minor intimal irregularities in the LAD. Family History Family History Father Family history of premature coronary heart disease, Onset Age: 58 Hypertension Carcinoma of colon Family history of Alzheimer's disease Mother Diabetes mellitus Family history of chronic obstructive pulmonary disease Hypertension Other Cerebrovascular accident Family history of cardiovascular disease Family history of malignant neoplasm Social History Social History Social History: Surrogate decision maker: Moni Winston, . Code status: Full code. Smoking status: Never smoker Second hand tobacco smoke exposure: No Alcohol intake: never Substance use: never Substance use type: does not use Living arrangements: with family Additional living arrangements comments: Lives in [place] with his . 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 Spiritual care concerns: No Exam Narrative: GENERAL: Well-appearing, well-nourished, and in no acute distress. HEAD: Normocephalic, atraumatic. EYES: EOMI. CHEST: Clear to auscultation. No respiratory distress. No wheezes rales or rhonchi HEART: Regular rate and rhythm. No murmur heard. Normal peripheral pulses. ABDOMEN: Soft, nontender, nondistended, normal active bowel sounds. EXTREMITIES: Normal range of motion. No edema. SKIN: Warm, dry, no rash. NEURO: No focal deficits. Alert and oriented x3. PSYCH: Normal mood and affect Course Course Emergency Course: Patient and family updated on workup and need for admission Consultations Consultation #1: Spoke with Dr. Louis about patient and workup who will consult. Patient will remain NPO Date: 10/09/24 Consultation #2: Spoke with hospitalist about patient and workup who accepts admission Date: 09/30/24 Vital Signs Vital signs: Vital Signs Temperature 97.8 F 09/29/24 19:59 Pulse Rate 88 09/29/24 19:59 Respiratory Rate 18 09/29/24 19:59 Blood Pressure 199/78 H 09/29/24 19:59 Pulse Oximetry 99 09/29/24 19:59 Oxygen Delivery Room Air 09/29/24 19:59 Temperature 97.8 F 09/29/24 19:59 Pulse Rate 80 09/30/24 01:32 Respiratory Rate 22 H 09/30/24 01:32 Blood Pressure 128/67 09/30/24 01:32 Pulse Oximetry 98 09/30/24 01:32 Oxygen Delivery Room Air 09/29/24 19:59 MDM - Male Genitourinary MDM Narrative Medical decision making narrative: Patient presents to the ER for hematuria. Recent transurethral resection of bladder tumor with Dr. Galaviz. Patient with tammy hematuria with blood clots. Three way catheter placed, CBI initiated. Patient is not on any anticoagulation. Hemoglobin is normal. Urine with trace leuk esterase, 11-20 white blood cells, greater than 100 red blood cells. Patient started on IV antibiotics. Spoke with Dr. Louis about patient and workup who will consult. Patient will remain NPO. Spoke with hospitalist about patient and workup who accepts admission Differential Diagnosis Differential diagnosis: Likely urinary tract infection, acute retention of urine and other (hematuria) Lab Data Attestation: I reviewed the patient's lab results. 09/29/24 22:41 09/29/24 22:41 Labs: Lab Results 09/29/24 Range/Units 22:41 WBC 8.8 (4.5-10.0) K/mm3 RBC 5.08 (4.6-6.20) M/mm3 Hgb 14.5 (14.0-18.0) g/dL Hct 44.2 (42.0-52.0) % MCV 87.0 (80-100) fl MCH 28.5 (26-34) pg MCHC 32.8 (32-36) g/dl RDW 14.7 H (11.5-14.5) % Plt Count 186 (150-375) k/mm3 MPV 9.8 (7.4-10.4) fl Immature Gran % (Auto) 1.0 H (0-0.5) % Neut % (Auto) 49.6 (45.5-73.1) % Lymph % (Auto) 38.0 (18.3-44.2) % [place] % (Auto) 7.3 (2.6-8.5) % Eos % (Auto) 3.2 (0-4.4) % Baso % (Auto) 0.9 (0.2-1.2) % Lymph # (Auto) 3.34 H (0.9-3.2) K/mm3 [place] # (Auto) 0.6 (0.1-0.6) K/mm3 Eos # (Auto) 0.3 (0-0.3) K/mm3 Baso # (Auto) 0.1 (0.0-0.1) K/mm3 Abs Immat Gran (auto) 0.09 H (0.00-0.031) K/mm3 Absolute Neuts (auto) 4.4 (1.3-6.7) K/mm3 Absolute Nucleated RBC 0.020 H (0.0-0.012) K/mm3 Nucleated RBC % 0.2 (0.0-0.2) % Sodium 140 (137-145) mmol/L Potassium 4.2 (3.4-5.0) mmol/L Chloride 108 H (98-107) mmol/L Carbon Dioxide 23 (22-30) mmol/L Anion Gap 9 (4-12) mmol/L BUN 15 (9-20) mg/dL Creatinine 1.03 (0.7-1.3) mg/dL Estim Creat Clear Calc 88 ml/min Estimated GFR > 60 (59 - ) Glucose 123 H (65-110) mg/dL Calcium 9.6 (8.4-10.2) mg/dL Total Bilirubin 0.5 (0.2-1.3) mg/dL AST 88 H (17-59) U/L ALT 100 H (6-50) U/L Alkaline Phosphatase 58 (38-126) U/L Total Protein 7.5 (6.3-8.2) g/dL Albumin 4.3 (3.5-5.1) g/dL Urine Color Red H (Yellow) Urine Appearance Cloudy H (Clear) Urine pH 6.0 (5.0-9.0) Ur Specific [place] 1.020 (1.001-1.035) Urine Protein 3+ H (Negative) mg/dL Urine Glucose (UA) 1+ H (Negative) mg/dL Urine Ketones 2+ H (Negative) mg/dL Ur Blood (Man) 4+ H (Negative) Urine Nitrate Negative (Negative) Urine Bilirubin 2+ H (Negative) Urine Urobilinogen 0.2 (<2.0) mg/dL Leukocyte Esterase Rfl Trace H (Negative) VIOLETTE/UL Urine RBC >100 H (0-2) /hpf Urine WBC 11-20 H (0-3) /hpf Ur Squamous Epith Cells Unable to determine (Few) /hpf Critical Care Time Critical Care Time Critical Care Time: No Discharge Plan Discharge Clinical Impression: Hematuria Qualifiers: Hematuria type: gross Qualified Code(s): R31.0 - Gross hematuria Patient Disposition: Still a Patient Condition: Stable
[2024-09-29 23:03] LABS: Alanine Aminotransferase 100 U/L (6-50); Albumin Level 4.3 g/dL (3.5-5.1); Alkaline Phosphatase 58 U/L (38-126); Aspartate Amino Transferase 88 U/L (17-59); Bilirubin,Total 0.5 mg/dL (0.2-1.3); Blood Urea Nitrogen 15 mg/dL (9-20); Calcium 9.6 mg/dL (8.4-10.2); Chloride 108 mmol/L (98-107); Estimated CRCL calculation 88 ml/min; Estimated Glomerular Filt Rate > 60; Glucose 123 mg/dL (65-110); Potassium 4.2 mmol/L (3.4-5.0); Sodium 140 mmol/L (137-145); Total Protein 7.5 g/dL (6.3-8.2)
[2024-09-29] MEDS: LIDOCAINE 2% GEL UROJET 10 ML PKG MUCOUS MEM (23:05)
[2024-09-29 23:08] LABS: Anion Gap 9 mmol/L (4-12); Carbon Dioxide 23 mmol/L (22-30)
[2024-09-29] MEDS: ONDANSETRON INJ 4 MG/2 ML VIAL IV PUSH (23:16)
[2024-09-29 23:29] LABS: Add Urine Microscopic? YES
[2024-09-29 23:30] LABS: Appearance Urine Cloudy (Clear)
[2024-09-29 23:32] LABS: Glucose Urine UA 1+ mg/dL (Negative); Ketones Urine 2+ mg/dL (Negative); Protein Urine 3+ mg/dL (Negative)
[2024-09-29 23:33] LABS: Color Urine Red (Yellow)
[2024-09-29 23:34] LABS: Bilirubin Urine 2+ (Negative); Leukocyte Esterase Ur Trace LEU/UL (Negative); Nitrate Urine Negative (Negative); RBC Urine >100 /hpf (0-2); Urobilinogen Urine 0.2 mg/dL (<2.0)
[2024-09-29 23:37] LABS: Squamous Epithelial Cell Urine Unable to determine /hpf (Few)
--- NOTE | 2024-09-29 23:39 | PC.NURSE ---
This RN emptied about 2500 ml of urine.
[2024-09-30] VITALS (34 sets, daily range): BP systolic 128–207; BP diastolic 53–105; PULSE 69–90; RESP 13–26; TEMP 36.3–36.7; O2SAT 95–100; BMI 38.9
[2024-09-30] MEDS: SODIUM CHLORIDE 0.9% IV 1,000 ML 125 ML IV CONT ×2 (01:44→15:57)
--- NOTE | 2024-09-30 02:02 | PC.NURSE ---
this RN emptied about 3000 ml from pt [place] bag. Per ELAYNE Sharma, this RN is starting another two CBI bags at this time.
--- NOTE | 2024-09-30 02:42 | PC.NURSE ---
RN emptied out another 1000 ml from pt [place]on bag.
--- NOTE | 2024-09-30 02:51 | ADMGEN ---
This patient, Gautam Winston, was admitted to Medical Room 252-01. Patient/family oriented to hospital policies and general routines including ID bracelet, bed and alarms, visiting hours, pain management, procedures, bathroom and other care routines, personal items, smoking policy, room service/diet, and visiting hours. Information on how to activate the Rapid Response Team has been discussed. Patient/Family are encouraged to report perceived risks to care and to ask questions if they do not understand what they are told or what they should do.
[2024-09-30] MEDS: ACETAMINOPHEN 500 MG TABLET PO (05:13)
[2024-09-30] MEDS: HYDROcodone/acetaminophen (*CRX) 7.5-325 MG TABLET 1 TAB PO (05:51)
--- NOTE | 2024-09-30 05:59 | PC.NURSE ---
Put a call out to Dr. Louis. CBI was wide open, but not draining. Attempted evacuation and was unsuccessful. Dr. Louis recommended replacing the 3 way with a 22Fr 3 way and that he would consult Parres and put him on the schedule for a clot evacuation. Reattempted evacuation by deflating the balloon. Clot was able to be evacuated. Balloon inflated to 15mL. Also, received orders for [place] 7.5 as an increase from 500 mg Tylenol.
--- NOTE | 2024-09-30 06:25 | P.CONUR_ITS ---
Assessment and Plan Assessment and plan (1) Hematuria: Qualifiers: Hematuria type: gross Qualified Code(s): R31.0 - Gross hematuria Code(s): R31.9 - Hematuria, unspecified Status: Acute Assessment and Plan: * Postoperative hematuria with clot urinary retention * Catheter irrigation at bedside is difficult * CT scan to determine extent bladder clot Urology Consult Note HPI Date Seen: 09/30/24 Requesting Physician: Nelly Vivar DO Primary Care Provider: Jenny Reyes MD Consult Narrative Narrative: Gautam Winston is a 69 year old male who presents to the ER hematuria and clot retention 3 days after TURBT. Review of Systems 2 Review of Systems: All systems reviewed & are unremarkable except as noted in HPI and below PMFSH Past Medical History Medical History Stress RLQ abdominal pain Other chronic pain Other chest pain Narcotic dependence Hematochezia H/O diabetes mellitus Dermoid cyst of neck Coronary artery disease involving [place] coronary artery Class 3 severe obesity due to excess calories without serious comorbidity in adult Body mass index (BMI) of 40.0-44.9 in adult Kidney stones Pre-diabetes Hemoglobin A1c was 5.8% on 08/13/2020. Chronic kidney disease, stage 3 Average GFR is in the upper 40s to low 50s. Baseline creatinine ranges between 1.2 and 1.50. Gout Obstructive sleep apnea Atherosclerotic heart disease of [place] coronary artery without angina pectoris Cardiac catheterization in May 2011 showed essentially normal coronary arteries with very minor intimal irregularities in the left anterior descending artery. Nuñez's esophagus determined by biopsy Cervical radiculopathy Chronic midline low back pain Current mild episode of major depressive disorder without prior episode Erectile dysfunction Essential hypertension Surgical History Surgical History History of lumbar surgery History of cervical spinal surgery History of esophagogastroduodenoscopy History of cardiac catheterization (05/20/11) Essentially normal coronary arteries with buried minor intimal irregularities in the LAD. Family History Family History Father Family history of premature coronary heart disease, Onset Age: 58 Hypertension Carcinoma of colon Family history of Alzheimer's disease Mother Diabetes mellitus Family history of chronic obstructive pulmonary disease Hypertension Other Cerebrovascular accident Family history of cardiovascular disease Family history of malignant neoplasm Social History Social History Social History: Surrogate decision maker: Moni Winston, . Code status: Full code. Smoking status: Never smoker Second hand tobacco smoke exposure: No Alcohol intake: never Substance use: never Substance use type: does not use Do You Feel Safe in your Home?: Yes Lack of Transportation: No Lack of Food: Never True Current Housing: I Have Housing Concerned About Future Housing: No Difficulty Paying Gas/Electric Bills: No Difficulty Paying for Meds: No Currently Unemployed: No Education: High School Diploma/GED Difficulty w/ Childcare or Family Care: No Living arrangements: with family Additional living arrangements comments: Lives in [place] with his . 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 Spiritual care concerns: No Meds Home Medications and Allergies Home Medications ?Medication ?Instructions ?Recorded ?Confirmed ?Type aspirin 81 mg tablet,delayed 81 mg PO DAILY 05/19/19 09/30/24 History release (Adult Low Dose Aspirin) [id number] 300 mcg-K 60 1 tablet PO DAILY 06/25/20 09/30/24 History mcg-lycop 600 mcg-lutein 300 mcg tablet (Complete Men 50 Plus) omega 6-emq-rjf-fish oil 100 1 cap PO DAILY 06/25/20 09/30/24 History mg-160 mg-1,000 mg capsule (Fish Oil) sennosides 8.6 mg-docusate sodium 2 tab-cap PO HS 01/07/21 09/30/24 History 50 mg tablet (Senna with Docusate Sodium) acetaminophen 500 mg capsule 500 mg PO Q6H PRN fever or pain 10/07/21 09/30/24 Rx #30 caps finasteride 5 mg tablet (Proscar) 5 mg PO QAM #90 tabs 04/01/24 09/30/24 Rx sildenafil 50 mg tablet (Viagra) 50 mg PO PRN Erectile Dysfunction 04/26/24 09/30/24 Rx #10 tabs diphenhydramine HCl 25 mg capsule 25 mg PO HS 06/21/24 09/30/24 History (Benadryl) allopurinol 300 mg tablet 300 mg PO DAILY #90 tabs 08/21/24 09/30/24 Rx gabapentin 100 mg capsule 100 mg PO TID #90 caps 09/17/24 09/30/24 Rx hydrocodone 5 mg-acetaminophen 325 1 - 2 tablet PO Q6H PRN pain #20 09/26/24 09/30/24 Rx mg tablet tabs furosemide 20 mg tablet 20 mg PO DAILY #90 tabs 09/27/24 09/30/24 Rx losartan 50 mg tablet 50 mg PO DAILY #90 tabs 09/27/24 09/30/24 Rx omeprazole 40 mg capsule,delayed 40 mg PO DAILY #90 caps 09/27/24 09/30/24 Rx release Allergies Allergy/AdvReac Type Severity Reaction Status Date / Time No Known Allergies Allergy Verified 09/30/24 02:45 Vital Signs Vital Signs - 24 hr 09/29/24 19:59 09/29/24 22:13 09/29/24 22:17 Temperature 97.8 F Pulse Rate 88 86 85 Respiratory Rate 18 12 21 H Blood Pressure 199/78 H 167/81 H Pulse Oximetry 99 98 98 Oxygen Delivery Room Air 09/29/24 22:32 09/29/24 23:19 09/29/24 23:32 Temperature Pulse Rate 92 75 78 Respiratory Rate 24 H 12 14 Blood Pressure 190/87 H 183/86 H 172/86 H Pulse Oximetry 97 97 Oxygen Delivery 09/29/24 23:47 09/30/24 00:02 09/30/24 00:05 Temperature Pulse Rate 75 77 77 Respiratory Rate 14 13 15 Blood Pressure 176/88 H 207/105 H 196/97 H Pulse Oximetry 98 98 98 Oxygen Delivery 09/30/24 00:15 09/30/24 00:17 09/30/24 00:20 Temperature Pulse Rate 90 84 81 Respiratory Rate 19 18 15 Blood Pressure 200/94 H 173/94 H Pulse Oximetry 97 97 97 Oxygen Delivery 09/30/24 00:30 09/30/24 00:32 09/30/24 00:45 Temperature Pulse Rate 77 77 78 Respiratory Rate 13 17 16 Blood Pressure 161/95 H Pulse Oximetry 98 98 99 Oxygen Delivery 09/30/24 00:47 09/30/24 01:02 09/30/24 01:17 Temperature Pulse Rate 79 83 77 Respiratory Rate 15 13 17 Blood Pressure 181/85 H 165/78 H 138/64 Pulse Oximetry 99 98 99 Oxygen Delivery 09/30/24 01:32 09/30/24 01:48 09/30/24 02:02 Temperature Pulse Rate 80 76 77 Respiratory Rate 22 H 16 15 Blood Pressure 128/67 139/61 142/74 H Pulse Oximetry 98 98 100 Oxygen Delivery 09/30/24 02:17 09/30/24 03:31 09/30/24 04:23 Temperature Pulse Rate 75 75 75 Respiratory Rate 20 20 Blood Pressure 138/75 Pulse Oximetry 99 99 99 Oxygen Delivery Room Air Autopap Exam 2 Const: General: no acute distress Resp: Effort & Inspection: normal respiratory effort GI: Inspection: non-distended GI Palp: No abdominal tenderness and No Guarding due to palpation present (GI) Auscultation: normal bowel sounds Urinary Catheter: Urinary Catheter: patent and draining and urine with clots Results Labs 09/29/24 22:41 09/29/24 22:41 Labs: Short CBC 09/29/24 Range/Units 22:41 WBC 8.8 (4.5-10.0) K/mm3 Hgb 14.5 (14.0-18.0) g/dL Hct 44.2 (42.0-52.0) % Plt Count 186 (150-375) k/mm3 BMP 09/29/24 22:41 Sodium 140 Potassium 4.2 Chloride 108 H Carbon Dioxide 23 BUN 15 Creatinine 1.03 Glucose 123 H Calcium 9.6 Liver Function 09/29/24 Range/Units 22:41 Total Bilirubin 0.5 (0.2-1.3) mg/dL AST 88 H (17-59) U/L ALT 100 H (6-50) U/L Alkaline Phosphatase 58 (38-126) U/L Albumin 4.3 (3.5-5.1) g/dL Urine 09/29/24 Range/Units 22:41 Urine Color Red H (Yellow) Urine Appearance Cloudy H (Clear) Urine pH 6.0 (5.0-9.0) Ur Specific [place] 1.020 (1.001-1.035) Urine Protein 3+ H (Negative) mg/dL Urine Glucose (UA) 1+ H (Negative) mg/dL
--- NOTE | 2024-09-30 07:10 | P.HP_ITS ---
H&P: HPI History of Present Illness Date/Time: 09/30/24 06:10 Chief Complaint: Not able to urinate, passing blood clots Narrative: 69-year-old male with a past medical history of gout, BPH, essential hypertension, GERD and erectile dysfunction who presented to the ER from home via private vehicle due to difficulty urinating. Patient had a cystoscopy on 09/26/[address] Galaviz at which time he had transurethral resection of a 2 cm bladder tumor followed by Gemcitabine administration. He had been doing well postop only having minor bleeding which had cleared up. But around 17:00 on the he tried to urinate and was having significant difficulty. He had DUs significant force to pass urine and at that time passed a large amount of blood and blood clots. Since then he has only been able to pass blood. He is not on any blood thinners. He did resume his 81 mg aspirin on the as directed. He denies any fevers or chills. He is having significant tenderness and fullness over his bladder. He reports that the pressure is quite significant. Nursing staff reports that the patient's 3 way catheter has clotted off multiple times since he came to the floor despite the catheter flow being white open. He denies any nausea or vomiting. He denies difficulty breathing. He had his last bowel movement yesterday. He denies having any lightheadedness with standing. Review of Systems Review of Systems: Pertinent positives and negatives review of systems as per HPI. [facility] Past Medical History Medical History (Updated 09/30/24 @ 07:28 by Nelly Vivar, ) Hepatic steatosis Tinnitus of both ears Stress RLQ abdominal pain Other chronic pain Narcotic dependence Dermoid cyst of neck Coronary artery disease involving twenty-nine palms coronary artery Class 3 severe obesity due to excess calories without serious comorbidity in adult Body mass index (BMI) of 40.0-44.9 in adult Kidney stones Pre-diabetes Hemoglobin A1c was 5.8% on 08/13/2020. Chronic kidney disease, stage 3 Average GFR is in the upper 40s to low 50s. Baseline creatinine ranges between 1.2 and 1.50. Gout Obstructive sleep apnea Atherosclerotic heart disease of twenty-nine palms coronary artery without angina pectoris Cardiac catheterization in May 2011 showed essentially normal coronary arteries with very minor intimal irregularities in the left anterior descending artery. Nuñez's esophagus determined by biopsy Cervical radiculopathy Chronic midline low back pain Current mild episode of major depressive disorder without prior episode Erectile dysfunction Essential hypertension Surgical History Surgical History History of lumbar surgery History of cervical spinal surgery History of esophagogastroduodenoscopy History of cardiac catheterization (05/20/11) Essentially normal coronary arteries with buried minor intimal irregularities in the LAD. Family History Family History Father Family history of premature coronary heart disease, Onset Age: 58 Hypertension Carcinoma of colon Family history of Alzheimer's disease Mother Diabetes mellitus Family history of chronic obstructive pulmonary disease Hypertension Other Cerebrovascular accident Family history of cardiovascular disease Family history of malignant neoplasm Social History Social History Social History: Surrogate decision maker: Moni Winston, . Code status: Full code. Smoking status: Never smoker Second hand tobacco smoke exposure: No Alcohol intake: never Substance use: never Substance use type: does not use Do You Feel Safe in your Home?: Yes Lack of Transportation: No Lack of Food: Never True Current Housing: I Have Housing Concerned About Future Housing: No Difficulty Paying Gas/Electric Bills: No Difficulty Paying for Meds: No Currently Unemployed: No Education: High School Diploma/GED Difficulty w/ Childcare or Family Care: No Living arrangements: with family Additional living arrangements comments: Lives in [place] with his . 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 Spiritual care concerns: No Meds Home Medications and Allergies Home Medications ?Medication ?Instructions ?Recorded ?Confirmed ?Type aspirin 81 mg tablet,delayed 81 mg PO DAILY 05/19/19 09/30/24 History release (Adult Low Dose Aspirin) [id number] 300 mcg-K 60 1 tablet PO DAILY 06/25/20 09/30/24 History mcg-lycop 600 mcg-lutein 300 mcg tablet (Complete Men 50 Plus) omega 7-qnt-pix-fish oil 100 1 cap PO DAILY 06/25/20 09/30/24 History mg-160 mg-1,000 mg capsule (Fish Oil) sennosides 8.6 mg-docusate sodium 2 tab-cap PO HS 01/07/21 09/30/24 History 50 mg tablet (Senna with Docusate Sodium) acetaminophen 500 mg capsule 500 mg PO Q6H PRN fever or pain 10/07/21 09/30/24 Rx #30 caps finasteride 5 mg tablet (Proscar) 5 mg PO QAM #90 tabs 04/01/24 09/30/24 Rx sildenafil 50 mg tablet (Viagra) 50 mg PO PRN Erectile Dysfunction 04/26/24 09/30/24 Rx #10 tabs diphenhydramine HCl 25 mg capsule 25 mg PO HS 06/21/24 09/30/24 History (Benadryl) allopurinol 300 mg tablet 300 mg PO DAILY #90 tabs 08/21/24 09/30/24 Rx gabapentin 100 mg capsule 100 mg PO TID #90 caps 09/17/24 09/30/24 Rx hydrocodone 5 mg-acetaminophen 325 1 - 2 tablet PO Q6H PRN pain #20 09/26/24 09/30/24 Rx mg tablet tabs furosemide 20 mg tablet 20 mg PO DAILY #90 tabs 09/27/24 09/30/24 Rx losartan 50 mg tablet 50 mg PO DAILY #90 tabs 09/27/24 09/30/24 Rx omeprazole 40 mg capsule,delayed 40 mg PO DAILY #90 caps 09/27/24 09/30/24 Rx release Allergies Allergy/AdvReac Type Severity Reaction Status Date / Time No Known Allergies Allergy Verified 09/30/24 02:45 Vital Signs Vital Signs - 24 hr 09/29/24 19:59 09/29/24 22:13 09/29/24 22:17 Temperature 97.8 F Pulse Rate 88 86 85 Respiratory Rate 18 12 21 H Blood Pressure 199/78 H 167/81 H Pulse Oximetry 99 98 98 Oxygen Delivery Room Air 09/29/24 22:32 09/29/24 23:19 09/29/24 23:32 Temperature Pulse Rate 92 75 78 Respiratory Rate 24 H 12 14 Blood Pressure 190/87 H 183/86 H 172/86 H Pulse Oximetry 97 97 Oxygen Delivery 09/29/24 23:47 09/30/24 00:02 09/30/24 00:05 Temperature Pulse Rate 75 77 77 Respiratory Rate 14 13 15 Blood Pressure 176/88 H 207/105 H 196/97 H Pulse Oximetry 98 98 98 Oxygen Delivery 09/30/24 00:15 09/30/24 00:17 09/30/24 00:20 Temperature Pulse Rate 90 84 81 Respiratory Rate 19 18 15 Blood Pressure 200/94 H 173/94 H Pulse Oximetry 97 97 97 Oxygen Delivery 09/30/24 00:30 09/30/24 00:32 09/30/24 00:45 Temperature Pulse Rate 77 77 78 Respiratory Rate 13 17 16 Blood Pressure 161/95 H Pulse Oximetry 98 98 99 Oxygen Delivery 09/30/24 00:47 09/30/24 01:02 09/30/24 01:17 Temperature Pulse Rate 79 83 77 Respiratory Rate 15 13 17 Blood Pressure 181/85 H 165/78 H 138/64 Pulse Oximetry 99 98 99 Oxygen Delivery 09/30/24 01:32 09/30/24 01:48 09/30/24 02:02 Temperature Pulse Rate 80 76 77 Respiratory Rate 22 H 16 15 Blood Pressure 128/67 139/61 142/74 H Pulse Oximetry 98 98 100 Oxygen Delivery 09/30/24 02:17 09/30/24 03:31 09/30/24 04:23 Temperature Pulse Rate 75 75 75 Respiratory Rate 20 20 Blood Pressure 138/75 Pulse Oximetry 99 99 99 Oxygen Delivery Room Air Autopap 09/30/24 06:00 Temperature 98.1 F Pulse Rate 86 Respiratory Rate 18 Blood Pressure 150/67 H Pulse Oximetry 95 Oxygen Delivery Exam Narrative: Weight 137.5 kg BMI 38.9 Const: Other: No acute distress, lying in bed, obese HENMT: Other: Crowded posterior oropharynx, mucous membranes are tacky, no oral pharyngeal erythema Eyes: Other: No scleral icterus, pupils are equal and reactive Neck: Other: Large neck circumference, no lymphadenopathy Resp: Other: Clear to auscultation bilaterally anterior whiteside, no increased work of breathing Cardio: Other: Regular rate, regular rhythm, 2+ bilateral radial and pedal pulses GI: Other: Distended, soft, positive bowel sounds : Other: 3 way catheter in [address] with Shawn-Aid ap pearing urine in the catheter bag, no drainage from the catheter at the time of my evaluation Skin: Other: Generalized pallor, non jaundice, no petechiae Neuro: Other: Alert oriented, speech is clear, no facial asymmetry, no localizing neurologic d eficits noted during the course of conversation Extrem: Other: No clubbing, cyanosis or edema, moves all extremities equally Psych: Other: Mildly anxious but otherwise appropriate mood and affect, pleasant and cooperative, judgment and insight intact H&P: Results Labs Labs: Short CBC 09/29/24 Range/Units 22:41 WBC 8.8 (4.5-10.0) K/mm3 Hgb 14.5 (14.0-18.0) g/dL Hct 44.2 (42.0-52.0) % Plt Count 186 (150-375) k/mm3 BMP 09/29/24 22:41 Sodium 140 Potassium 4.2 Chloride 108 H Carbon Dioxide 23 BUN 15 Creatinine 1.03 Glucose 123 H Calcium 9.6 Liver Function 09/29/24 Range/Units 22:41 Total Bilirubin 0.5 (0.2-1.3) mg/dL AST 88 H (17-59) U/L ALT 100 H (6-50) U/L Alkaline Phosphatase 58 (38-126) U/L Albumin 4.3 (3.5-5.1) g/dL Urine 09/29/24 Range/Units 22:41 Urine Color Red H (Yellow) Urine Appearance Cloudy H (Clear) Urine pH 6.0 (5.0-9.0) Ur Specific Gorman 1.020 (1.001-1.035) Urine Protein 3+ H (Negative) mg/dL Urine Glucose (UA) 1+ H (Negative) mg/dL Assessment and Plan Assessment and plan (1) Gross hematuria: Code(s): R31.0 - Gross hematuria Status: Acute (2) Cancer of overlapping sites of bladder: Code(s): C67.8 - Malignant neoplasm of overlapping sites of bladder Status: Acute (3) Transaminitis: Code(s): R74.01 - Elevation of levels of liver transaminase levels Status: Acute (4) Obstructive sleep apnea: Code(s): G47.33 - Obstructive sleep apnea (adult) (pediatric) Status: Acute (5) Essential hypertension: Code(s): I10 - Essential (primary) hypertension Status: Acute Plan Patient has gross hematuria following transurethral resection of bladder tumor. Patient's hemoglobin is stable from baseline. Will repeat CBC in a.m.. Will hold 81 mg aspirin. Patient has some transaminitis. It appears that he has had mild transaminitis intermittently in the past. Prior CT scan did show hepatic steatosis. Will repeat CMP to monitor. Is likely a chronic issue but will repeat labs to ensure that levels are continuing to rise. Will also check coag panel. Auto titrating CPAP has been ordered. Blood pressures are stable will resume antihypertensives. Patient has been admitted as observation status. Quality VTE Prophylaxis VTE prophylaxis: mechanical ordered (SCDs) Hospitalist MIPS Advance Care Plan I have confirmed that the patient's Advanced Care Plan is present, code status is documented, or surrogate decision maker is listed in patient medical record.: Yes Medication Reconciliation I have utilized all available resources to obtain, update and review the patients current medications (includes all prescriptions, OTC, herbals, cannab is, and nutritional supplements).: Yes
[2024-09-30 08:36] LABS: Hematocrit 41.6 % (42.0-52.0); Hemoglobin 13.8 g/dL (14.0-18.0); Mean Corpuscular HGB Conc 33.2 g/dl (32-36); Mean Corpuscular Hemoglobin 28.8 pg (26-34); Mean Corpuscular Volume 86.7 fl (80-100); Mean Platelet Volume 10.2 fl (7.4-10.4); Platelet Count Result 192 k/mm3 (150-375); Red Cell Distribution Width 14.7 % (11.5-14.5); White Blood Count 11.1 K/mm3 (4.5-10.0)
[2024-09-30] MEDS: ONDANSETRON INJ 4 MG/2 ML VIAL IV PUSH ×2 (08:46→12:32)
[2024-09-30 08:49] LABS: Prothrombin Time 13.4 Seconds (11.1-14.7)
[2024-09-30 08:50] LABS: Partial Thromboplastin Time 26.7 Seconds (22.3-36.8)
[2024-09-30 08:52] LABS: Alanine Aminotransferase 97 U/L (6-50); Alkaline Phosphatase 61 U/L (38-126); Anion Gap 9 mmol/L (4-12); Aspartate Amino Transferase 89 U/L (17-59); Bilirubin,Total 0.6 mg/dL (0.2-1.3); Blood Urea Nitrogen 17 mg/dL (9-20); Calcium 9.3 mg/dL (8.4-10.2); Carbon Dioxide 22 mmol/L (22-30); Chloride 108 mmol/L (98-107); Estimated CRCL calculation 83 ml/min; Estimated Glomerular Filt Rate > 60; Glucose 119 mg/dL (65-110); Magnesium 1.8 mg/dL (1.6-2.3); Potassium 4.1 mmol/L (3.4-5.0); Sodium 139 mmol/L (137-145); Total Protein 7.3 g/dL (6.3-8.2)
--- NOTE | 2024-09-30 09:58 | P.PNIM_ITS ---
Progress Note: A&P Assessment and Plan (1) Gross hematuria: Code(s): R31.0 - Gross hematuria Status: Acute Assessment and Plan: * CBI * Urology consulted, appreciate recommendations. * Cystoscopy with clot evacuation done this afternoon. Patient found to have an arterial bleed in the bed of his bladder tumor in the left lateral wall. The entire bed was cauterized. 22 maltese hematuria catheter was placed to dr gross. * Pain control. * UA: Urine color red, urine cloudy, 3+ protein, 1+ glucose, 2+ ketones, 3+ blood, 2+ bilirubin, trace leukocytes, >100 RBC, WBC 11-20. * Urine culture pending. * NS @ 125 ml/hr. (2) Cancer of overlapping sites of bladder: Code(s): C67.8 - Malignant neoplasm of overlapping sites of bladder Status: Acute Assessment and Plan: * TURBT done on 09/26/24. * Patient came to the hospital with urinary clots and difficulty urinating. * Cystoscopy with clot evacuation done this afternoon. Patient found to have an arterial bleed in the bed of his bladder tumor in the left lateral wall. The entire bed was cauterized. 22 maltese hematuria catheter was placed to drainage. (3) Transaminitis: Code(s): R74.01 - Elevation of levels of liver transaminase levels Status: Acute Assessment and Plan: * AST: 88>89. * ALT: 100>97. (4) Obstructive sleep apnea: Code(s): G47.33 - Obstructive sleep apnea (adult) (pediatric) Status: Acute Assessment and Plan: * CPAP (5) Essential hypertension: Code(s): I10 - Essential (primary) hypertension Status: Acute Assessment and Plan: * Blood pressure 150/67-166/76. * Losartan 50 mg PO daily. Subjective Date/time seen: 09/30/24 09:58 Interval history: Patient reporting pressure clot is a 10, constant, and excruciating. Patient denies shortness of breath or abdominal pain. Patient reports feeling a little nauseous. is at the bedside. Patient stating he just wants to get rid of this pressure. Patient lying in bed with a cold rag to forehead. Review of Systems Review of Systems: All systems reviewed & are unremarkable except as noted in HPI and below Exam Const: General: uncomfortable Other: Squirming in bed. Resp: Effort & Inspection: normal respiratory effort Auscultation: clear to auscultation bilaterally Cardio: Rate: regular rate Rhythm: regular rhythm GI: GI Palp: Yes Soft to palpation Auscultation: normal bowel sounds : Other: 3 [address] catheter [address] with Shawn-Aid ap pearing urine in the catheter bag Neuro: Speech: normal speech Extrem: General: no pedal edema Psych: Mental Status: mental status grossly normal Affect: normal affect Objective Data Vital Signs Vital Signs: Vital Signs - 24 hr 09/29/24 19:59 09/29/24 22:13 09/29/24 22:17 Temperature 97.8 F Pulse Rate 88 86 85 Respiratory Rate 18 12 21 H Blood Pressure 199/78 H 167/81 H Pulse Oximetry 99 98 98 Oxygen Delivery Room Air 09/29/24 22:32 09/29/24 23:19 09/29/24 23:32 Temperature Pulse Rate 92 75 78 Respiratory Rate 24 H 12 14 Blood Pressure 190/87 H 183/86 H 172/86 H Pulse Oximetry 97 97 Oxygen Delivery 09/29/24 23:47 09/30/24 00:02 09/30/24 00:05 Temperature Pulse Rate 75 77 77 Respiratory Rate 14 13 15 Blood Pressure 176/88 H 207/105 H 196/97 H Pulse Oximetry 98 98 98 Oxygen Delivery 09/30/24 00:15 09/30/24 00:17 09/30/24 00:20 Temperature Pulse Rate 90 84 81 Respiratory Rate 19 18 15 Blood Pressure 200/94 H 173/94 H Pulse Oximetry 97 97 97 Oxygen Delivery 09/30/24 00:30 09/30/24 00:32 09/30/24 00:45 Temperature Pulse Rate 77 77 78 Respiratory Rate 13 17 16 Blood Pressure 161/95 H Pulse Oximetry 98 98 99 Oxygen Delivery 09/30/24 00:47 09/30/24 01:02 09/30/24 01:17 Temperature Pulse Rate 79 83 77 Respiratory Rate 15 13 17 Blood Pressure 181/85 H 165/78 H 138/64 Pulse Oximetry 99 98 99 Oxygen Delivery 09/30/24 01:32 09/30/24 01:48 09/30/24 02:02 Temperature Pulse Rate 80 76 77 Respiratory Rate 22 H 16 15 Blood Pressure 128/67 139/61 142/74 H Pulse Oximetry 98 98 100 Oxygen Delivery 09/30/24 02:17 09/30/24 03:31 09/30/24 04:23 Temperature Pulse Rate 75 75 75 Respiratory Rate 20 20 Blood Pressure 138/75 Pulse Oximetry 99 99 99 Oxygen Delivery Room Air Autopap 09/30/24 06:00 Temperature 98.1 F Pulse Rate 86 Respiratory Rate 18 Blood Pressure 150/67 H Pulse Oximetry 95 Oxygen Delivery Intake/Output Intake/Output: Intake & Output 09/27/24 09/28/24 09/29/24 09/30/24 23:59 23:59 23:59 23:59 Intake Total 835.4 Output Total 05424 Balance -75710.6 Meds/Results Medications: Active Medications Generic Name Dose Route Start Last Admin Trade Name Freq PRN Reason Stop Dose Admin Acetaminophen 500 mg 09/30/24 04:27 09/30/24 05:13 Acetaminophen 500 Mg Tablet PO 500 mg Q4H PRN Administration fever or pain Hydrocodone Bitart/Acetaminophen 1 tab 09/30/24 05:46 09/30/24 05:51 Hydrocodone/Acetaminophen (*Crx) 7.5-325 Mg Tablet PO 1 tab Q4H PRN Administration Pain Rated 7-10 Allopurinol 300 mg 09/30/24 09:00 09/30/24 08:37 Allopurinol 300 Mg Tablet PO Not Given DAILY AMANDA Diphenhydramine HCl 25 mg 09/30/24 21:00 Diphenhydramine Hcl Cap 25 Mg Capsule PO HS AMANDA Finasteride 5 mg 09/30/24 09:00 09/30/24 08:37 Finasteride 5 Mg Tablet PO Not Given QAM AMANDA Gabapentin 100 mg 09/30/24 09:00 09/30/24 08:37 Gabapentin 100 Mg Capsule PO Not Given TID AMANDA Sodium Chloride 1,000 mls @ 125 mls/hr 09/30/24 01:25 09/30/24 08:39 Normal Saline Iv IV CONT 125 mls/hr .Q8H AMANDA Infusion Ceftriaxone Sodium 1 gm in 50 mls @ 100 mls/hr 09/30/24 23:00 Rocephin 1 Gm/Ns 50 Ml IVPB Q24H AMANDA Losartan Potassium 50 mg 09/30/24 09:00 09/30/24 08:38 Losartan Potassium 50 Mg Tablet PO Not Given DAILY AMANDA Morphine Sulfate 2 mg 09/30/24 09:55 Morphine Sulfate (*Crx) 2 Mg/Ml Inj IV PUSH 09/30/24 09:56 ONCE ONE Ondansetron HCl 4 mg 09/30/24 08:29 09/30/24 08:46 Ondansetron Inj 4 Mg/2 Ml Vial IV PUSH 4 mg Q6H PRN Administration Nausea And Vomiting Pantoprazole Sodium 40 mg 09/30/24 09:00 09/30/24 08:38 Pantoprazole 40 Mg Tablet PO Not Given Q12HR AMANDA Senna/Docusate Sodium 2 tab 09/30/24 21:00 Senna/Docusate Sodium Tablet PO HS [facility] Radiology Results: ITS Impressions Abdomen/Pelvis CT 09/30/24 08:22 IMPRESSION: 1. Large hematoma seen in the bladder. Cystoscopy is advised. 2. Fat infiltration of the liver with hepatomegaly. 3. No evidence of appendicitis, diverticulitis or intestinal obstruction. 4. Small sliding hiatus hernia. Labs Labs: Laboratory Results - last 24 hr 09/29/24 09/30/24 22:41 08:29 WBC 8.8 11.1 H RBC 5.08 4.80 Hgb 14.5 13.8 L Hct 44.2 41.6 L MCV 87.0 86.7 MCH 28.5 28.8 MCHC 32.8 33.2 RDW 14.7 H 14.7 H Plt Count 186 192 MPV 9.8 10.2 Immature Gran % (Auto) 1.0 H Neut % (Auto) 49.6 Lymph % (Auto) 38.0 Mccone % (Auto) 7.3 Eos % (Auto) 3.2 Baso % (Auto) 0.9 Lymph # (Auto) 3.34 H Mccone # (Auto) 0.6 Eos # (Auto) 0.3 Baso # (Auto) 0.1 Abs Immat Gran (auto) 0.09 H Absolute Neuts (auto) 4.4 Absolute Nucleated RBC 0.020 H Nucleated RBC % 0.2 PT 13.4 INR 1.0 APTT 26.7 Sodium 140 139 Potassium 4.2 4.1 Chloride 108 H 108 H Carbon Dioxide 23 22 Anion Gap 9 9 BUN 15 17 Creatinine 1.03 1.13 Estim Creat Clear Calc 88 83 Estimated GFR > 60 > 60 Glucose 123 H 119 H Calcium 9.6 9.3 Magnesium 1.8 Total Bilirubin 0.5 0.6 AST 88 H 89 H ALT 100 H 97 H Alkaline Phosphatase 58 61 Total Protein 7.5 7.3 Albumin 4.3 4.0 Urine Color Red H Urine Appearance Cloudy H Urine pH 6.0 Ur Specific Bivalve 1.020 Urine Protein 3+ H Urine Glucose (UA) 1+ H Urine Ketones 2+ H Ur Blood (Man) 4+ H Urine Nitrate Negative Urine Bilirubin 2+ H Urine Urobilinogen 0.2 Leukocyte Esterase Rfl Trace H Urine RBC >100 H Urine WBC 11-20 H Ur Squamous Epith Cells Unable to determine Quality VTE Prophylaxis VTE prophylaxis: mechanical ordered (SCDs)
[2024-09-30] MEDS: MORPHINE SULFATE (*CRX) 2 MG/ML INJ IV PUSH (10:10)
[2024-09-30 10:34] LABS: Blood Urine 3+ (Negative)
[2024-09-30] MEDS: HYDROmorphone HCL INJ (*CRX) 2 MG/ML VIAL 0.5 MG IV PUSH (10:46)
--- NOTE | 2024-09-30 11:40 | PC.NURSE ---
To OR via wheelchair. Family at bedside.
--- NOTE | 2024-09-30 11:57 | WPDHPUPDATE1 ---
History and Physical Update Update Date/Time: 09/30/24 11:57 History and Physical has been reviewed, including an updated exam of the patient. There are NO changes in the patient's condition. Risks, benefits, and alternatives have been discussed and questions answered. Patient agrees to proceed with procedure.
[2024-09-30] MEDS: LACTATED RINGERS 1,000 ML 30 ML IV CONT (12:00)
--- NOTE | 2024-09-30 12:23 | P.PNAN_ITS ---
Anes - Initial Pre Proc Eval Procedure: Operation Date: 09/30/24 13:30 Proposed Procedures p Cystoscopy, Evacuation Bladder Clots - Kaushal Galaviz MD Date/Time: 09/30/24 12:23 Surgeon: Nelly Vivar DO Pre Op Diagnosis: Hematuria Patient Data Age: 69 Gender: M Height: 1.88 m Weight: 137.5 kg Last Vital Signs Temp 36.3 C L 09/30/24 12:09 Pulse 80 09/30/24 12:09 Resp 26 H 09/30/24 12:09 BP 166/76 H 09/30/24 12:09 Pulse Ox 100 09/30/24 12:09 O2 Del Method Room Air 09/30/24 08:38 Allergies Allergy/AdvReac Type Severity Reaction Status Date / Time No Known Allergies Allergy Verified 09/30/24 11:58 Home Medications ?Medication ?Instructions ?Recorded ?Confirmed ?Type aspirin 81 mg tablet,delayed 81 mg PO DAILY 05/19/19 09/30/24 History release (Adult Low Dose Aspirin) iokqxcjx-ev-zgeyv 300 mcg-K 60 1 tablet PO DAILY 06/25/20 09/30/24 History mcg-lycop 600 mcg-lutein 300 mcg tablet (Complete Men 50 Plus) omega 4-wha-ivh-fish oil 100 1 cap PO DAILY 06/25/20 09/30/24 History mg-160 mg-1,000 mg capsule (Fish Oil) sennosides 8.6 mg-docusate sodium 2 tab-cap PO HS 01/07/21 09/30/24 History 50 mg tablet (Senna with Docusate Sodium) acetaminophen 500 mg capsule 500 mg PO Q6H PRN fever or pain 10/07/21 09/30/24 Rx #30 caps finasteride 5 mg tablet (Proscar) 5 mg PO QAM #90 tabs 04/01/24 09/30/24 Rx sildenafil 50 mg tablet (Viagra) 50 mg PO PRN Erectile Dysfunction 04/26/24 09/30/24 Rx #10 tabs diphenhydramine HCl 25 mg capsule 25 mg PO HS 06/21/24 09/30/24 History (Benadryl) allopurinol 300 mg tablet 300 mg PO DAILY #90 tabs 08/21/24 09/30/24 Rx gabapentin 100 mg capsule 100 mg PO TID #90 caps 09/17/24 09/30/24 Rx hydrocodone 5 mg-acetaminophen 325 1 - 2 tablet PO Q6H PRN pain #20 09/26/24 09/30/24 Rx mg tablet tabs furosemide 20 mg tablet 20 mg PO DAILY #90 tabs 09/27/24 09/30/24 Rx losartan 50 mg tablet 50 mg PO DAILY #90 tabs 09/27/24 09/30/24 Rx omeprazole 40 mg capsule,delayed 40 mg PO DAILY #90 caps 09/27/24 09/30/24 Rx release Laboratory Tests 09/29/24 09/30/24 22:41 08:29 WBC 8.8 K/mm3 11.1 H K/mm3 (4.5-10.0) (4.5-10.0) RBC 5.08 M/mm3 4.80 M/mm3 (4.6-6.20) (4.6-6.20) Hgb 14.5 g/dL 13.8 L g/dL (14.0-18.0) (14.0-18.0) Hct 44.2 % 41.6 L % (42.0-52.0) (42.0-52.0) MCV 87.0 fl 86.7 fl (80-100) (80-100) MCH 28.5 pg 28.8 pg (26-34) (26-34) MCHC 32.8 g/dl 33.2 g/dl (32-36) (32-36) RDW 14.7 H % 14.7 H % (11.5-14.5) (11.5-14.5) Plt Count 186 k/mm3 192 k/mm3 (150-375) (150-375) MPV 9.8 fl 10.2 fl (7.4-10.4) (7.4-10.4) Immature Gran % (Auto) 1.0 H % (0-0.5) Neut % (Auto) 49.6 % (45.5-73.1) Lymph % (Auto) 38.0 % (18.3-44.2) [place] % (Auto) 7.3 % (2.6-8.5) Eos % (Auto) 3.2 % (0-4.4) Baso % (Auto) 0.9 % (0.2-1.2) Lymph # (Auto) 3.34 H K/mm3 (0.9-3.2) [place] # (Auto) 0.6 K/mm3 (0.1-0.6) Eos # (Auto) 0.3 K/mm3 (0-0.3) Baso # (Auto) 0.1 K/mm3 (0.0-0.1) Abs Immat Gran (auto) 0.09 H K/mm3 (0.00-0.031) Absolute Neuts (auto) 4.4 K/mm3 (1.3-6.7) Absolute Nucleated RBC 0.020 H K/mm3 (0.0-0.012) Nucleated RBC % 0.2 % (0.0-0.2) PT 13.4 Seconds (11.1-14.7) INR 1.0 APTT 26.7 Seconds (22.3-36.8) Sodium 140 mmol/L 139 mmol/L (137-145) (137-145) Potassium 4.2 mmol/L 4.1 mmol/L (3.4-5.0) (3.4-5.0) Chloride 108 H mmol/L 108 H mmol/L (98-107) (98-107) Carbon Dioxide 23 mmol/L 22 mmol/L (22-30) (22-30) Anion Gap 9 mmol/L 9 mmol/L (4-12) (4-12) BUN 15 mg/dL 17 mg/dL (9-20) (9-20) Creatinine 1.03 mg/dL 1.13 mg/dL (0.7-1.3) (0.7-1.3) Estim Creat Clear Calc 88 ml/min 83 ml/min Estimated GFR > 60 > 60 (59 - ) (59 - ) Glucose 123 H mg/dL 119 H mg/dL (65-110) (65-110) Calcium 9.6 mg/dL 9.3 mg/dL (8.4-10.2) (8.4-10.2) Magnesium 1.8 mg/dL (1.6-2.3) Total Bilirubin 0.5 mg/dL 0.6 mg/dL (0.2-1.3) (0.2-1.3) AST 88 H U/L 89 H U/L (17-59) (17-59) ALT 100 H U/L 97 H U/L (6-50) (6-50) Alkaline Phosphatase 58 U/L 61 U/L (38-126) (38-126) Total Protein 7.5 g/dL 7.3 g/dL (6.3-8.2) (6.3-8.2) Albumin 4.3 g/dL 4.0 g/dL (3.5-5.1) (3.5-5.1) Urine Color Red H (Yellow) Urine Appearance Cloudy H (Clear) Urine pH 6.0 (5.0-9.0) Ur Specific [place] 1.020 (1.001-1.035) Urine Protein 3+ H mg/dL (Negative) Urine Glucose (UA) 1+ H mg/dL (Negative) Urine Ketones 2+ H mg/dL (Negative) Ur Blood (Man) 3+ H (Negative) Urine Nitrate Negative (Negative) Urine Bilirubin 2+ H (Negative) Urine Urobilinogen 0.2 mg/dL (<2.0) Leukocyte Esterase Rfl Trace H VIOLETTE/UL (Negative) Urine RBC >100 H /hpf (0-2) Urine WBC 11-20 H /hpf (0-3) Ur Squamous Epith Cells Unable to determine /hpf (Few) Patient hx anesthesia problems: none Family hx anesthesia problems: none Results Review: All pre-operative results and documents have been reviewed as part of the pre- operative evaluation. [facility] Past Medical History Medical History (Updated 09/30/24 @ 07:28 by Nelly Vivar DO) Hepatic steatosis Tinnitus of both ears Stress RLQ abdominal pain Other chronic pain Narcotic dependence Dermoid cyst of neck Coronary artery disease involving [place] coronary artery Class 3 severe obesity due to excess calories without serious comorbidity in adult Body mass index (BMI) of 40.0-44.9 in adult Kidney stones Pre-diabetes Hemoglobin A1c was 5.8% on 08/13/2020. Chronic kidney disease, stage 3 Average GFR is in the upper 40s to low 50s. Baseline creatinine ranges between 1.2 and 1.50. Gout Obstructive sleep apnea Atherosclerotic heart disease of [place] coronary artery without angina pectoris Cardiac catheterization in May 2011 showed essentially normal coronary arteries with very minor intimal irregularities in the left anterior descending artery. Nuñez's esophagus determined by biopsy Cervical radiculopathy Chronic midline low back pain Current mild episode of major depressive disorder without prior episode Erectile dysfunction Essential hypertension Surgical History Surgical History History of lumbar surgery History of cervical spinal surgery History of esophagogastroduodenoscopy History of cardiac catheterization (05/20/11) Essentially normal coronary arteries with buried minor intimal irregularities in the LAD. Family History Family History Father Family history of premature coronary heart disease, Onset Age: 58 Hypertension Carcinoma of colon Family history of Alzheimer's disease Mother Diabetes mellitus Family history of chronic obstructive pulmonary disease Hypertension Other Cerebrovascular accident Family history of cardiovascular disease Family history of malignant neoplasm Social History Social History Social History: Surrogate decision maker: Moni Winston, . Code status: Full code. Smoking status: Never smoker Second hand tobacco smoke exposure: No Alcohol intake: never Substance use: never Substance use type: does not use Do You Feel Safe in your Home?: Yes Lack of Transportation: No Lack of Food: Never True Current Housing: I Have Housing Concerned About Future Housing: No Difficulty Paying Gas/Electric Bills: No Difficulty Paying for Meds: No Currently Unemployed: No Education: High School Diploma/GED Difficulty w/ Childcare or Family Care: No Living arrangements: with family Additional living arrangements comments: Lives in [place] with his . 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 Spiritual care concerns: No Anes - Eval Final PreProcedure Day of Procedure 09/30/24 12:23 Patient weight: obese Heart: regular rate and rhythm Lungs: clear to auscultation Airway: Mallampati scale class II Neurological: alert and oriented Last oral intake: >/= 8 hours ASA classification: III Emergent: no Anesthetic plan: proceed Anesthesia type and monitoring: general LMA and standard monitoring Results Review: All pre-operative results and documents have been reviewed as part of the pre- operative evaluation. Informed Consent: The patient's anesthetic plan and its attendant risks and benefits were discussed with the patient/family/POA. Questions were solicited and answers provided to the satisfaction of the patient/family/POA.
[2024-09-30] MEDS: FAMOTIDINE 20 MG/2 ML VIAL IV PUSH (12:32)
[2024-09-30] MEDS: fentaNYL CITRATE INJ (*CRX) 100 MCG/2 ML VIAL 50 MCG IV PUSH (12:32)
[2024-09-30] MEDS: SCOPOLAMINE 1 MG PATCH 1 PATCH TRANSDERM (12:33)
[2024-09-30] MEDS: LIDOCAINE 2% GEL UROJET 10 ML PKG MUCOUS MEM (13:40)
--- NOTE | 2024-09-30 13:48 | W.PM.PROC2 ---
Procedure Note - Detailed Date of Procedure 09/30/24 Pre-op Diagnosis Hematuria, clot retention Post-op Diagnosis Same Procedure Performed Cystoscopy, clot evacuation, bladder cauterization Surgeon Kaushal Galaviz MD Anesthesia General Description of Procedure Patient is brought the op suite was prepped draped in routine sterile fashion while in dorsal lithotomy position after the uneventful induction of a general LMA anesthetic. 2% xylocaine jelly was introduced intraurethrally. A 24 F resectoscope was placed in his bladder. He has a large clot which was evacuated in its entirety with Keith syringe. The bed of his bladder tumor in left lateral wall has an arterial bleed. The entire bed is cauterized with a rollerball electrode. Twenty-two F hematuria catheter was placed to drainage. Urine Output 400 Drains Yes Packing No Pathology None sent Complications No immediate complications
[2024-09-30] MEDS: diphenhydrAMINE HCl INJ 50 MG/ML VIAL 25 MG IV PUSH (15:10)
[2024-09-30] MEDS: diphenhydrAMINE HCl CAP 25 MG CAPSULE PO (21:39)
[2024-09-30] MEDS: PANTOPRAZOLE 40 MG TABLET PO (21:39)
[2024-09-30] MEDS: SENNA/DOCUSATE SODIUM TABLET 2 TAB PO (21:39)
[2024-10-01] MEDS: SODIUM CHLORIDE 0.9% IV 1,000 ML 125 ML IV CONT (04:07)
[2024-10-01 05:29] LABS: Basophils Absolute Auto 0.1 K/mm3 (0.0-0.1); Basophils Percent Auto 0.5 % (0.2-1.2); Eosinophils Absolute Auto 0.1 K/mm3 (0-0.3); Eosinophils Percent Auto 1.4 % (0-4.4); Hematocrit 36.3 % (42.0-52.0); Hemoglobin 11.9 g/dL (14.0-18.0); Immature Granulocyte Absolute 0.07 K/mm3 (0.00-0.031); Immature Granulocyte Percent A 0.8 % (0-0.5); Lymphocytes Absolute Auto 2.57 K/mm3 (0.9-3.2); Lymphocytes Percent Auto 27.5 % (18.3-44.2); Mean Corpuscular HGB Conc 32.8 g/dl (32-36); Mean Corpuscular Hemoglobin 28.5 pg (26-34); Mean Corpuscular Volume 87.1 fl (80-100); Mean Platelet Volume 9.7 fl (7.4-10.4); Monocytes Absolute Auto 0.6 K/mm3 (0.1-0.6); Monocytes Percent Auto 6.3 % (2.6-8.5); Neutrophils Absolute Auto 5.9 K/mm3 (1.3-6.7); Neutrophils Percent Auto 63.5 % (45.5-73.1); Platelet Count Result 149 k/mm3 (150-375); Red Blood Count 4.17 M/mm3 (4.6-6.20); Red Cell Distribution Width 14.9 % (11.5-14.5); White Blood Count 9.3 K/mm3 (4.5-10.0)
[2024-10-01 05:52] LABS: Alanine Aminotransferase 78 U/L (6-50); Albumin Level 3.6 g/dL (3.5-5.1); Alkaline Phosphatase 51 U/L (38-126); Anion Gap 9 mmol/L (4-12); Aspartate Amino Transferase 61 U/L (17-59); Bilirubin,Total 0.5 mg/dL (0.2-1.3); Blood Urea Nitrogen 14 mg/dL (9-20); Calcium 8.5 mg/dL (8.4-10.2); Carbon Dioxide 21 mmol/L (22-30); Chloride 109 mmol/L (98-107); Estimated CRCL calculation 87 ml/min; Estimated Glomerular Filt Rate > 60; Glucose 102 mg/dL (65-110); Magnesium 1.9 mg/dL (1.6-2.3); Potassium 3.8 mmol/L (3.4-5.0); Sodium 139 mmol/L (137-145); Total Protein 6.3 g/dL (6.3-8.2)
[2024-10-01 06:00] VITALS: BP 157/64; PULSE 72; RESP 18; TEMP 36.9; O2SAT 97
--- NOTE | 2024-10-01 06:00 | P.PNUR_ITS ---
Progress Note: A&P Assessment and Plan (1) Hematuria: Qualifiers: Hematuria type: gross Qualified Code(s): R31.0 - Gross hematuria Code(s): R31.9 - Hematuria, unspecified Status: Acute Plan * No hematuria following intervention yesterday. Urine clear off CBI this morning. * Catheter out for voiding trial. Subjective Subjective Date/Time Seen: 10/01/24 06:00 Interval history: Comfortable, slept well Review of Systems Review of Systems: All systems reviewed & are unremarkable except as noted in HPI and below Exam Const: General: no acute distress Resp: Effort & Inspection: normal respiratory effort GI: Inspection: non-distended GI Palp: No abdominal tenderness and No Guarding due to palpation present (GI) Auscultation: normal bowel sounds Urinary Catheter: Urinary Catheter: patent and draining and urine clear Objective Data Vital Signs Vital Signs: Vital Signs - 24 hr 09/30/24 08:38 09/30/24 12:09 09/30/24 13:54 Temperature 97.4 F L 97.5 F L Pulse Rate 80 87 Respiratory Rate 18 26 H 16 Blood Pressure 166/76 H 158/89 H Pulse Oximetry 95 100 100 Oxygen Delivery Room Air Simple Face Mask Oxygen Flow Rate 6 09/30/24 14:05 09/30/24 14:15 09/30/24 14:30 Temperature Pulse Rate 79 79 69 Respiratory Rate 20 20 16 Blood Pressure 149/86 H 147/74 H 161/87 H Pulse Oximetry 97 99 96 Oxygen Delivery Simple Face Mask Room Air Room Air Oxygen Flow Rate 6 09/30/24 14:45 09/30/24 15:00 09/30/24 15:15 Temperature 97.8 F Pulse Rate 69 70 76 Respiratory Rate 14 14 18 Blood Pressure 160/90 H 171/72 H 167/77 H Pulse Oximetry 97 100 98 Oxygen Delivery Room Air Room Air Room Air Oxygen Flow Rate 09/30/24 15:28 09/30/24 15:45 09/30/24 15:45 Temperature 97.4 F L 97.9 F Pulse Rate 76 76 Respiratory Rate 16 16 16 Blood Pressure 168/80 H 159/68 H Pulse Oximetry 98 99 99 Oxygen Delivery Room Air Room Air Oxygen Flow Rate 09/30/24 16:00 09/30/24 16:30 09/30/24 17:30 Temperature 97.9 F 97.8 F 97.8 F Pulse Rate 74 78 78 Respiratory Rate 16 16 16 Blood Pressure 148/53 H 139/71 146/66 H Pulse Oximetry 99 98 99 Oxygen Delivery Oxygen Flow Rate 09/30/24 20:00 09/30/24 22:00 Temperature 98.1 F Pulse Rate 85 85 Respiratory Rate 18 18 Blood Pressure 174/64 H Pulse Oximetry 99 99 Oxygen Delivery Room Air Oxygen Flow Rate Intake/Output Intake/Output: Intake & Output 09/28/24 09/29/24 09/30/24 10/01/24 23:59 23:59 23:59 23:59 Intake Total 5522.0 Output Total 83368 5200 Balance -9828.0 -5200 Meds/Results Medications: Active Medications Generic Name Dose Route Start Last Admin Trade Name Freq PRN Reason Stop Dose Admin Acetaminophen 500 mg 09/30/24 04:27 09/30/24 05:13 Acetaminophen 500 Mg Tablet PO 500 mg Q4H PRN Administration fever or pain Hydrocodone Bitart/Acetaminophen 1 tab 09/30/24 05:46 09/30/24 05:51 Hydrocodone/Acetaminophen (*Crx) 7.5-325 Mg Tablet PO 1 tab Q4H PRN Administration Pain Rated 7-10 Allopurinol 300 mg 09/30/24 09:00 09/30/24 08:37 Allopurinol 300 Mg Tablet PO Not Given DAILY AMANDA Diphenhydramine HCl 25 mg 09/30/24 21:00 09/30/24 21:39 Diphenhydramine Hcl Cap 25 Mg Capsule PO 25 mg HS AMANDA Administration Finasteride 5 mg 09/30/24 09:00 09/30/24 08:37 Finasteride 5 Mg Tablet PO Not Given QAM AMANDA Gabapentin 100 mg 09/30/24 09:00 09/30/24 16:05 Gabapentin 100 Mg Capsule PO Not Given TID AMANDA Sodium Chloride 1,000 mls @ 125 mls/hr 09/30/24 01:25 10/01/24 04:07 Normal Saline Iv IV CONT 125 mls/hr .Q8H AMANDA Administration Ceftriaxone Sodium 1 gm in 50 mls @ 100 mls/hr 09/30/24 23:00 09/30/24 23:30 Rocephin 1 Gm/Ns 50 Ml IVPB Infused Q24H AMANDA Infusion Losartan Potassium 50 mg 09/30/24 09:00 09/30/24 08:38 Losartan Potassium 50 Mg Tablet PO Not Given DAILY AMANDA Ondansetron HCl 4 mg 09/30/24 08:29 09/30/24 08:46 Ondansetron Inj 4 Mg/2 Ml Vial IV PUSH 4 mg Q6H PRN Administration Nausea And Vomiting Pantoprazole Sodium 40 mg 09/30/24 09:00 09/30/24 21:39 Pantoprazole 40 Mg Tablet PO 40 mg Q12HR AMANDA Administration Senna/Docusate Sodium 2 tab 09/30/24 21:00 09/30/24 21:39 Senna/Docusate Sodium Tablet PO 2 tab HS AMANDA Administration Radiology Results: ITS Impressions Abdomen/Pelvis CT 09/30/24 08:22 IMPRESSION: 1. Large hematoma seen in the bladder. Cystoscopy is advised. 2. Fat infiltration of the liver with hepatomegaly. 3. No evidence of appendicitis, diverticulitis or intestinal obstruction. 4. Small sliding hiatus hernia. Labs Labs: Laboratory Results - last 24 hr 09/29/24 09/30/24 10/01/24 22:41 08:29 04:57 WBC 11.1 H 9.3 RBC 4.80 4.17 L Hgb 13.8 L 11.9 L Hct 41.6 L 36.3 L MCV 86.7 87.1 MCH 28.8 28.5 MCHC 33.2 32.8 RDW 14.7 H 14.9 H Plt Count 192 149 L MPV 10.2 9.7 Immature Gran % (Auto) 0.8 H Neut % (Auto) 63.5 Lymph % (Auto) 27.5 [place] % (Auto) 6.3 Eos % (Auto) 1.4 Baso % (Auto) 0.5 Lymph # (Auto) 2.57 [place] # (Auto) 0.6 Eos # (Auto) 0.1 Baso # (Auto) 0.1 Abs Immat Gran (auto) 0.07 H Absolute Neuts (auto) 5.9 Absolute Nucleated RBC 0.000 Nucleated RBC % 0.0 PT 13.4 INR 1.0 APTT 26.7 Sodium 139 139 Potassium 4.1 3.8 Chloride 108 H 109 H Carbon Dioxide 22 21 L Anion Gap 9 9 BUN 17 14 Creatinine 1.13 1.08 Estim Creat Clear Calc 83 87 Estimated GFR > 60 > 60 Glucose 119 H 102 Calcium 9.3 8.5 Magnesium 1.8 1.9 Total Bilirubin 0.6 0.5 AST 89 H 61 H ALT 97 H 78 H Alkaline Phosphatase 61 51 Total Protein 7.3 6.3 Albumin 4.0 3.6 Ur Specific [place] 1.020 Ur Blood (Man) 3+ H
[2024-10-01] MEDS: LOSARTAN POTASSIUM 50 MG TABLET PO (08:43)
[2024-10-01] MEDS: GABAPENTIN 100 MG CAPSULE PO ×2 (08:43→12:39)
[2024-10-01] MEDS: FINASTERIDE 5 MG TABLET PO (08:43)
[2024-10-01 08:44] VITALS: RESP 18; O2SAT 97
[2024-10-01] MEDS: PANTOPRAZOLE 40 MG TABLET PO (08:44)
[2024-10-01] MEDS: allopurinoL 300 MG TABLET PO (08:44)
--- NOTE | 2024-10-01 11:21 | P.PNIM_ITS ---
Subjective Date/time seen: 10/01/24 11:21 Review of Systems Review of Systems: All systems reviewed & are unremarkable except as noted in HPI and below Objective Data Vital Signs Vital Signs: Vital Signs - 24 hr 09/30/24 12:09 09/30/24 13:54 09/30/24 14:05 Temperature 97.4 F L 97.5 F L Pulse Rate 80 87 79 Respiratory Rate 26 H 16 20 Blood Pressure 166/76 H 158/89 H 149/86 H Pulse Oximetry 100 100 97 Oxygen Delivery Simple Face Mask Simple Face Mask Oxygen Flow Rate 6 6 09/30/24 14:15 09/30/24 14:30 09/30/24 14:45 Temperature Pulse Rate 79 69 69 Respiratory Rate 20 16 14 Blood Pressure 147/74 H 161/87 H 160/90 H Pulse Oximetry 99 96 97 Oxygen Delivery Room Air Room Air Room Air Oxygen Flow Rate 09/30/24 15:00 09/30/24 15:15 09/30/24 15:28 Temperature 97.8 F 97.4 F L Pulse Rate 70 76 76 Respiratory Rate 14 18 16 Blood Pressure 171/72 H 167/77 H 168/80 H Pulse Oximetry 100 98 98 Oxygen Delivery Room Air Room Air Room Air Oxygen Flow Rate 09/30/24 15:45 09/30/24 15:45 09/30/24 16:00 Temperature 97.9 F 97.9 F Pulse Rate 76 74 Respiratory Rate 16 16 16 Blood Pressure 159/68 H 148/53 H Pulse Oximetry 99 99 99 Oxygen Delivery Room Air Oxygen Flow Rate 09/30/24 16:30 09/30/24 17:30 09/30/24 20:00 Temperature 97.8 F 97.8 F Pulse Rate 78 78 85 Respiratory Rate 16 16 18 Blood Pressure 139/71 146/66 H Pulse Oximetry 98 99 99 Oxygen Delivery Room Air Oxygen Flow Rate 09/30/24 22:00 10/01/24 06:00 10/01/24 08:44 Temperature 98.1 F 98.4 F Pulse Rate 85 72 Respiratory Rate 18 18 18 Blood Pressure 174/64 H 157/64 H Pulse Oximetry 99 97 97 Oxygen Delivery Room Air Oxygen Flow Rate Intake/Output Intake/Output: Intake & Output 09/28/24 09/29/24 09/30/24 10/01/24 23:59 23:59 23:59 23:59 Intake Total 5522.0 963.3 Output Total 82528 6550 [facility] -9828.0 -5586.7 Meds/Results Medications: Active Medications Generic Name Dose Route Start Last Admin Trade Name Freq PRN Reason Stop Dose Admin Acetaminophen 500 mg 09/30/24 04:27 09/30/24 05:13 Acetaminophen 500 Mg Tablet PO 500 mg Q4H PRN Administration fever or pain Hydrocodone Bitart/Acetaminophen 1 tab 09/30/24 05:46 09/30/24 05:51 Hydrocodone/Acetaminophen (*Crx) 7.5-325 Mg Tablet PO 1 tab Q4H PRN Administration Pain Rated 7-10 Allopurinol 300 mg 09/30/24 09:00 10/01/24 08:44 Allopurinol 300 Mg Tablet PO 300 mg DAILY AMANDA Administration Diphenhydramine HCl 25 mg 09/30/24 21:00 09/30/24 21:39 Diphenhydramine Hcl Cap 25 Mg Capsule PO 25 mg HS AMANDA Administration Finasteride 5 mg 09/30/24 09:00 10/01/24 08:43 Finasteride 5 Mg Tablet PO 5 mg QAM AMANDA Administration Gabapentin 100 mg 09/30/24 09:00 10/01/24 08:43 Gabapentin 100 Mg Capsule PO 100 mg TID AMANDA Administration Sodium Chloride 1,000 mls @ 125 mls/hr 09/30/24 01:25 10/01/24 07:59 Normal Saline Iv IV CONT 0 mls/hr .Q8H AMANDA Infusion Ceftriaxone Sodium 1 gm in 50 mls @ 100 mls/hr 09/30/24 23:00 09/30/24 23:30 Rocephin 1 Gm/Ns 50 Ml IVPB Infused Q24H AMANDA Infusion Losartan Potassium 50 mg 09/30/24 09:00 10/01/24 08:43 Losartan Potassium 50 Mg Tablet PO 50 mg DAILY AMANDA Administration Ondansetron HCl 4 mg 09/30/24 08:29 09/30/24 08:46 Ondansetron Inj 4 Mg/2 Ml Vial IV PUSH 4 mg Q6H PRN Administration Nausea And Vomiting Pantoprazole Sodium 40 mg 09/30/24 09:00 10/01/24 08:44 Pantoprazole 40 Mg Tablet PO 40 mg Q12HR AMANDA Administration Senna/Docusate Sodium 2 tab 09/30/24 21:00 09/30/24 21:39 Senna/Docusate Sodium Tablet PO 2 tab HS AMANDA Administration Radiology Results: ITS Impressions Abdomen/Pelvis CT 09/30/24 08:22 IMPRESSION: 1. Large hematoma seen in the bladder. Cystoscopy is advised. 2. Fat infiltration of the liver with hepatomegaly. 3. No evidence of appendicitis, diverticulitis or intestinal obstruction. 4. Small sliding hiatus hernia. Labs Labs: Laboratory Results - last 24 hr 10/01/24 04:57 WBC 9.3 RBC 4.17 L Hgb 11.9 L Hct 36.3 L MCV 87.1 MCH 28.5 MCHC 32.8 RDW 14.9 H Plt Count 149 L MPV 9.7 Immature Gran % (Auto) 0.8 H Neut % (Auto) 63.5 Lymph % (Auto) 27.5 [place] % (Auto) 6.3 Eos % (Auto) 1.4 Baso % (Auto) 0.5 Lymph # (Auto) 2.57 [place] # (Auto) 0.6 Eos # (Auto) 0.1 Baso # (Auto) 0.1 Abs Immat Gran (auto) 0.07 H Absolute Neuts (auto) 5.9 Absolute Nucleated RBC 0.000 Nucleated RBC % 0.0 Sodium 139 Potassium 3.8 Chloride 109 H Carbon Dioxide 21 L Anion Gap 9 BUN 14 Creatinine 1.08 Estim Creat Clear Calc 87 Estimated GFR > 60 Glucose 102 Calcium 8.5 Magnesium 1.9 Total Bilirubin 0.5 AST 61 H ALT 78 H Alkaline Phosphatase 51 Total Protein 6.3 Albumin 3.6
--- NOTE | 2024-10-01 13:30 | PM.DS ---
DS: Admitting Diagnosis Discharge Date 10/01/2024 Admitting Diagnosis Bloody urine. DS: Discharge Diagnosis Discharge Diagnosis (1) Gross hematuria: Code(s): R31.0 - Gross hematuria Status: Acute (2) Cancer of overlapping sites of bladder: Code(s): C67.8 - Malignant neoplasm of overlapping sites of bladder Status: Acute (3) Transaminitis: Code(s): R74.01 - Elevation of levels of liver transaminase levels Status: Acute (4) Obstructive sleep apnea: Code(s): G47.33 - Obstructive sleep apnea (adult) (pediatric) Status: Acute DS: Summary Hospital Course Hospital Course: Patient had TURBT procedure on 09/26. Patient came to the hospital with urinary clots and difficulty urinating. CBI was initiated. Patient went for a cystoscopy clot evacuation. Patient found to have an arterial bleed in the bed of his bladder tumor in the left lateral wall. The entire bed was cauterized. 22 arabic hematuria catheter was placed to drainage. Moran later removed and patient is voiding yellow urine. Patient to follow up outpatient with urology. Urine culture negative and blood cultures no growth to date. Status at Discharge Functional status at discharge: independent ambulation Overall status at discharge: patient is progressing back to baseline Time Spent with Patient Time attestation: Total time spent providing and/or coordinating discharge services: Time spent: Less than 30 minutes Exam Const: General: no acute distress and uncomfortable Other: Pain in back is a 6, frequent, and aching. Resp: Effort & Inspection: normal respiratory effort Auscultation: clear to auscultation bilaterally Cardio: Rate: regular rate Rhythm: regular rhythm GI: GI Palp: Yes Soft to palpation Auscultation: normal bowel sounds Extrem: General: no pedal edema Psych: Mental Status: mental status grossly normal Affect: normal affect DS: Data Data Completed and Pending Labs on day of discharge: Labs from last 24 hours 10/01/24 04:57 WBC 9.3 RBC 4.17 L Hgb 11.9 L Hct 36.3 L MCV 87.1 MCH 28.5 MCHC 32.8 RDW 14.9 H Plt Count 149 L MPV 9.7 Immature Gran % (Auto) 0.8 H Neut % (Auto) 63.5 Lymph % (Auto) 27.5 [place] % (Auto) 6.3 Eos % (Auto) 1.4 Baso % (Auto) 0.5 Lymph # (Auto) 2.57 [place] # (Auto) 0.6 Eos # (Auto) 0.1 Baso # (Auto) 0.1 Abs Immat Gran (auto) 0.07 H Absolute Neuts (auto) 5.9 Absolute Nucleated RBC 0.000 Nucleated RBC % 0.0 Sodium 139 Potassium 3.8 Chloride 109 H Carbon Dioxide 21 L Anion Gap 9 BUN 14 Creatinine 1.08 Estim Creat Clear Calc 87 Estimated GFR > 60 Glucose 102 Calcium 8.5 Magnesium 1.9 Total Bilirubin 0.5 AST 61 H ALT 78 H Alkaline Phosphatase 51 Total Protein 6.3 Albumin 3.6 Preliminary micro results at discharge 09/30/24 00:25 Blood Culture - Preliminary Blood 09/30/24 00:14 Blood Culture - Preliminary Blood Discharge Plan Discharge Attending physician on discharge: Nelly Vivar Consulting providers: Williams Louis Discharging Clinician: Kaushal Galaviz Anticipated Discharge Date/Time: 10/01/24 14:00 Patient Disposition: Home Activity: other - see discharge instructions Diet: other - see discharge instructions Discharge Instructions: 1) Activity: no driving or important decisions x24 hours. 2) Diet: resume your normal, pre-admission diet. 3) Follow-up: 2024 (previously arranged). Thank you for entrusting [facility] with your healthcare! Patient Instructions: Antibiotic Form Patient Language: Swedish Stand Alone Forms: General Discharge Information Follow-up/Referrals: Kaushal Galaviz MD [Physician] - Discharge Medications: Continued sennosides-docusate sodium [Senna with Docusate Sodium] 8.6-50 mg Tablet 2 tab-cap PO HS diphenhydramine HCl [Benadryl] 25 mg capsule 25 mg PO HS Complete Men 50 Plus 300-600-300 mcg tablet 1 tablet PO DAILY acetaminophen 500 mg capsule 500 mg PO Q6H PRN (Reason: fever or pain) Qty: 30 0RF hydrocodone-acetaminophen 5-325 mg tablet 1 - 2 tablet PO Q6H PRN (Reason: pain) Qty: 20 0RF finasteride [Proscar] 5 mg tablet 5 mg PO QAM Qty: 90 2RF sildenafil [Viagra] 50 mg tablet 50 mg PO PRN Qty: 10 10RF allopurinol 300 mg tablet 300 mg PO DAILY Qty: 90 2RF gabapentin 100 mg capsule 100 mg PO TID Qty: 90 1RF omeprazole 40 mg capsule,delayed release(DR/EC) 40 mg PO DAILY Qty: 90 2RF losartan 50 mg tablet 50 mg PO DAILY Qty: 90 2RF furosemide 20 mg tablet 20 mg PO DAILY Qty: 90 0RF Held aspirin [Adult Low Dose Aspirin] 81 mg tablet,delayed release (DR/EC) 81 mg PO DAILY Hold Instructions: Resume on 10/04/24. Fish Oil 100-160-1,000 mg capsule 1 cap PO DAILY Hold Instructions: Resume on 10/04/24. Date of admission: 09/30/24 01:24 Primary Care Provider: Jenny Reyes Admitting Provider: Nelly Vivar Attending physician on admission: Nelly Vivar Condition: Stable Hospitalist MIPS Heart Failure (Exclusion) Patient has history of Heart Transplant or Left Ventricular Assistive Device?: No IF YES, STOP HERE Heart Failure (Qualifier) Patient has current or prior documentation of LVEF less than or equal to 40%, or mod/servere depressed LVSF?: No IF NO, STOP HERE
--- NOTE | 2024-10-01 14:16 | WPDANESPN ---
Anes - Prog Note Post-Op Date/Time: 10/01/24 14:16 Cardiovascular status: normal Respiratory status: normal Airway patency: baseline Mental status: baseline Post-Op hydration status: normal Vital Signs: Last Vital Signs Temp 98.4 F 10/01/24 06:00 Pulse 72 10/01/24 06:00 Resp 18 10/01/24 08:44 BP 157/64 H 10/01/24 06:00 Pulse Ox 97 10/01/24 08:44 O2 Del Method Room Air 10/01/24 08:44 O2 Flow Rate 6 09/30/24 14:05 Pain Score (VAS): 0/10 I/O: Intake & Output 09/30/24 10/01/24 10/01/24 23:59 07:59 15:59 Intake Total 1272 483.3 480 Output Total 400 6150 400 Balance 872 -5666.7 80 Laboratory Tests 10/01/24 04:57 10/01/24 04:57 10/01/24 04:57 WBC 9.3 RBC 4.17 L Hgb 11.9 L Hct 36.3 L MCV 87.1 MCH 28.5 MCHC 32.8 RDW 14.9 H Plt Count 149 L MPV 9.7 Immature Gran % (Auto) 0.8 H Neut % (Auto) 63.5 Lymph % (Auto) 27.5 [place] % (Auto) 6.3 Eos % (Auto) 1.4 Baso % (Auto) 0.5 Lymph # (Auto) 2.57 [place] # (Auto) 0.6 Eos # (Auto) 0.1 Baso # (Auto) 0.1 Abs Immat Gran (auto) 0.07 H Absolute Neuts (auto) 5.9 Absolute Nucleated RBC 0.000 Nucleated RBC % 0.0 Sodium 139 Potassium 3.8 Chloride 109 H Carbon Dioxide 21 L Anion Gap 9 BUN 14 Creatinine 1.08 Estim Creat Clear Calc 87 Estimated GFR > 60 Glucose 102 Calcium 8.5 Magnesium 1.9 Total Bilirubin 0.5 AST 61 H ALT 78 H Alkaline Phosphatase 51 Total Protein 6.3 Albumin 3.6 Microbiology 09/29/24 22:41 Urine Clean Catch Urine Culture Reflexed - Final 09/30/24 00:25 Blood Blood Culture - Preliminary 09/30/24 00:14 Blood Blood Culture - Preliminary Post-procedural complaints: none Patient Feedback: Patient satisfied with anesthetic care.
== END 2024-10-01 15:10 | disposition home or self-care (01) ==
LOC: ANHED 09-30 01:29 → ANH2MED 09-30 01:46
PROVIDERS: Nurse Practitioner Family; Urology; Admitting Provider Internal Medicine; Emergency Provider Physician Assistant; PCP Family Medicine; Visit Provider Internal Medicine
PROC: 0TCB8ZZ Extirpation of Matter from Bladder, Via Natural or Artificial Opening Endoscopic (ICD-10-PCS; CPT 52001; principal; 2024-09-30 13:30)
DX: R31.0 Gross hematuria (principal); C67.8 Malignant neoplasm of overlapping sites of bladder; R74.01 Elevation of levels of liver transaminase levels; G47.33 Obstructive sleep apnea (adult) (pediatric); I25.10 Atherosclerotic heart disease of native coronary artery without angina pectoris; I12.9 Hypertensive chronic kidney disease with stage 1 through stage 4 chronic kidney disease, or unspecified chronic kidney disease; N18.30 Chronic kidney disease, stage 3 unspecified; E66.813 Obesity, class 3; Z68.38 Body mass index [BMI] 38.0-38.9, adult; Z98.890 Other specified postprocedural states; Z79.899 Other long term (current) drug therapy
CPT/HCPCS: 52001; 36415; 74176; 80053; 81001; 83735; 85025; 85027; 85610; 85730; 87040; 87086; 96365; 96375; 99285; A9270; G0378; J0696; J1171; J1200; J2003; J2270; J2405; J2704; J3010; J7030; J7120

== ENCOUNTER 2024-11-16 10:01 | Outpatient (CLI) | payer MEDICARE, SELFPAY ==
--- OUTSIDE RECORDS SUMMARY | 2024-11-16 10:04 | XMS_ITS | Clinical Summary ---
Author Organization [facility] Address [address] [place] [address] Care Team Providers Care Tobacco Sizer Name Role Phone Unavailable Primary Care Provider Unavailabl e Source Comments [facility],non-owned Affiliates and Associated Physician Practices is amultiple site organization consisting of ambulatory clinics and hospital sitesin [place], [place], [place] and [place]. This disclosure is being madepursuant to the Care Everywhere program and may not contain all information available regarding this patient. 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 Gender Identity Not on file Sexual Orientation [...] MEDICARE AWV CALENDAR YEAR 2024 INFLUENZA VACCINE (#1) 2024 Respiratory Syncytial Virus (RSV) Vaccine Pt: [...] patient's age to complete this topic Insurance [facility] MANAGED MEDICARE ADV MEDICAID - OUT OF STATE U[employer] MANAGED MEDICARE ADV SELF PAY NO INSURANCE Member Subscriber Plan / Payer (Ef fective for All Dates) Name:Gautam Winston Member ID:Not on file Relation to Subscriber:Not on file Name:GAUTAM WINSTON Subscriber ID:Not on file (Home) Address: [address] [place] [id number] Payer ID:Not on file Group ID:Not on file Type:Self Pay Address: [place], [place]
--- OUTSIDE RECORDS SUMMARY | 2024-11-16 10:04 | XMS_ITS | Clinical Summary ---
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 Right: Groin [employer] 03/09/2019 [id number] / / [id number] Insurance [facility] HMO REF [facility] HMO REF [place] [id number] Care Teams Booking Supervisor Relationship Specialty Start Date End Date Jenny Reyes MD PCP - General Family Medicine 06/12/18
--- OUTSIDE RECORDS SUMMARY | 2024-11-16 10:04 | XMS_ITS | Clinical Summary ---
Author Organization [facility] Address [address] [place] [address] Care Team Providers Care Laborer [place] Name Role Phone Unavailable Primary Care Provider [...]
[2024-11-16 10:13] LABS: Hematocrit 42.8 % (37.0-46.0); Hemoglobin 13.6 g/dL (12.4-15.3); Immature Granulocyte Percent A 0.3 % (0.0-0.0); Lymphocytes Absolute Auto 2.46 K/mm3 (1.10-4.50); Mean Corpuscular HGB Conc 31.8 g/dL (32-36); Mean Corpuscular Hemoglobin 28.3 pg (27.0-31.0); Mean Corpuscular Volume 89.0 fL (78.0-102.0); Nucleated Red Blood Cells Absolute Auto 0.00 K/mm3 (0.00-0.00); Nucleated Red Blood Cells Perc 0.0 % (0-0.0); Platelet Count Result 221 K/mm3 (150-420); Red Blood Count 4.81 M/mm3 (4.70-6.10); White Blood Count 5.9 K/mm3 (4.8-10.8)
[2024-11-16 10:54] LABS: Alanine Aminotransferase 79 U/L (6-50); Albumin Level 4.6 g/dL (3.5-5.1); Alkaline Phosphatase 61 U/L (38-126); Anion Gap 8 mmol/L (4-12); Aspartate Amino Transferase 69 U/L (17-59); Bilirubin,Total 0.7 mg/dL (0.2-1.3); Blood Urea Nitrogen 20 mg/dL (9-20); Calcium 9.3 mg/dL (8.4-10.2); Carbon Dioxide 24 mmol/L (22-30); Chloride 110 mmol/L (98-107); Cholesterol 201 mg/dL (0-200); Estimated Glomerular Filt Rate 56; Glucose 103 mg/dL (65-110); HDL Direct 31 mg/dL; Iron 68 ug/dL (49-181); Osmolality Calculated 296 mOsm/kg (285-295); Potassium 4.2 mmol/L (3.4-5.0); Sodium 142 mmol/L (137-145); Total Protein 7.6 g/dL (6.3-8.2); Triglycerides 203 mg/dL (<150)
[2024-11-16 12:48] LABS: Hemoglobin A1C 5.8 % (<5.7)
[2024-11-16 16:25] LABS: Ferritin 89.80 ng/mL (11.1-264); Percent Iron Saturation 20 % (20-50); Vitamin B12 917.0 pg/mL (239-931)
== END 2024-11-16 10:02 | disposition home or self-care (01) ==
LOC: CHSLAB 10:03
PROVIDERS: PCP Family Medicine; Visit Provider Family Medicine
DX: E78.2 Mixed hyperlipidemia (principal); R73.03 Prediabetes; D64.9 Anemia, unspecified
CPT/HCPCS: 36415; 80053; 80061; 82607; 82728; 82746; 83036; 83540; 83550; 85025

== ENCOUNTER 2025-01-06 07:54 | Outpatient (CLI) | payer MEDICARE, SELFPAY ==
--- OUTSIDE RECORDS SUMMARY | 2025-01-06 08:02 | XMS_ITS | Clinical Summary ---
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 Gender Identity Not on file Sexual [...] on file Medical Devices Implanted Type Area Ems Helicopter Pilot Device Identifier Shelf Expiration Date Model / Serial / Lot [employer] [id number] Angio-Seal Vip Bondek-Plus 6fr .035in 70cm Hemostatic Latex Free - [id number] Implanted:Qty: 1 on 06/28/2018 by Tim Preston MD at [facility] Right: Groin [employer] 03/09/2019 [id number] / / [id number] Insurance [facility] REF [facility] Address: [place] [address] [facility] HMO REF [facility] Address: [address] [address] [place] [phone] Care Teams Physical Medicine Specialist Relationship Specialty Start Date End Date Jenny Reyes MD PCP - General Family Medicine 06/12/18
[2025-01-06 09:09] LABS: Iron 56 ug/dL (49-181)
[2025-01-06 09:19] LABS: Percent Iron Saturation 17 % (20-50)
[2025-01-06 09:31] LABS: Hepatitis B Surface Antigen Negative (Negative)
[2025-01-06 09:37] LABS: HAV RESULT Negative (Negative); Hepatitis B Core IgM Result Negative (Negative)
[2025-01-06 09:50] LABS: Ferritin 58.70 ng/mL (11.1-264)
[2025-01-07 18:08] LABS: ANA by IFA Rfx Titer/Pattern Negative (.)
== END 2025-01-06 07:55 | disposition home or self-care (01) ==
PROVIDERS: PCP Student in an Organized Health Care Education/Training Program; Visit Provider Nurse Practitioner Family
DX: K76.0 Fatty (change of) liver, not elsewhere classified (principal); R10.2 Pelvic and perineal pain; R79.89 Other specified abnormal findings of blood chemistry
CPT/HCPCS: 36415; 80074; 82103; 82390; 82728; 83540; 83550; 86015; 86038; 86381